=== PATIENT | female | born 1945 | race Caucasian/White ===

== ENCOUNTER 2018-03-19 09:50 | Outpatient (REF) | payer OTHER, SELFPAY ==
[2018-03-19 20:28] LABS: HCT 43.2 % (36.0-46.0); Mean Corp. HGB Concentration 32.4 g/dL (32.0-36.0); Mean Corpuscular Hemoglobin 31.5 pg (27.0-33.0); Mean Corpuscular Volume 97.1 fL (80-95); Mean Platelet Volume 10.7 fL (8.0-11.0); Platelet Count 257 x1000/uL (130-400); RBC 4.45 m/cumm (4.00-5.20); RBC Distribution Width 14.2 % (11.7-14.6); White Blood Cell Count 11.68 k/cumm (4.4-10.8)
[2018-03-19 21:06] LABS: ESR 37 MM/HR (0-30)
[2018-03-19 21:21] LABS: C-Reactive Protein 1.77 mg/dL (0.0-0.3)
== END 2018-03-19 09:51 ==
LOC: NCHCN 09:50
PROVIDERS: PCP Specialist/Technologist Athletic Trainer; Visit Provider Specialist/Technologist Athletic Trainer
DX: R23.8 Other skin changes (principal); M25.50 Pain in unspecified joint; M79.605 Pain in left leg
CPT/HCPCS: 85027; 85652; 86140

== ENCOUNTER 2018-04-02 00:50 | Outpatient (CLI) | payer OTHER, SELFPAY ==
--- NOTE | 2018-04-02 07:56 | DI.REPORT_ITS ---
SYMPTOM/DIAGNOSIS: SCREENING, [facility], Z00.00 MAMMOGRAMS: Mammograms were interpreted according to the usual protocol including computer analysis with CAD system, tomosynthesis and C view imaging. The breast tissue is heterogeneously radiodense with no evidence of a dominant mass. A biopsy clip is identified in the medial portion of the right breast. There are no suspicious calcifications and there has been no significant interval change when compared with previous exams. IMPRESSION: No evidence of malignancy, category 1. Yearly screening mammography is recommended. Breast density, category C. SA ASSESSMENT OF FINDINGS: Negative. Category 1. Patient will receive a letter notifying them of these results. Bi-RADS category C. The breasts are heterogeneously dense, which may obscure small masses.
--- NOTE | 2018-04-02 08:10 | DI.REPORT_ITS ---
SYMPTOM/DIAGNOSIS: M79.605, LT LEG PAIN, WORSE WITH WT BEARING, H/O OSTEOPOROSIS LEFT LEG: No bony or soft tissue abnormality is demonstrated.
== END 2018-04-02 00:51 ==
PROVIDERS: PCP Specialist/Technologist Athletic Trainer; Visit Provider Specialist/Technologist Athletic Trainer
DX: M79.605 Pain in left leg (principal); Z12.31 Encounter for screening mammogram for malignant neoplasm of breast
CPT/HCPCS: 77063; 77067; 73590

== ENCOUNTER 2018-04-03 10:30 | Outpatient (REF) | payer OTHER, SELFPAY ==
[2018-04-05 14:56] LABS: Myeloperoxidase Ab IgG <0.2 U; Proteinase 3 Ab (PR3) <0.2 U
[2018-04-05 22:54] LABS: Anaplasma phagocytophilum Negative (Negative); B. miyamotoi PCR Negative (Negative); Babesia divergens/MO-1 Negative (Negative); Babesia duncani Negative (Negative); Babesia microti Negative (Negative); Ehrlichia chaffeensis Negative (Negative); Ehrlichia ewingii/canis Negative (Negative); Ehrlichia muris eauclairensis Negative (Negative)
[2018-04-07 09:28] LABS: Cyclic Citrullinated Peptide <2.5 U/mL (<5.0)
[2018-04-07 12:53] LABS: Lyme Ab w Rflx to Lyme Confirm Negative
[2018-04-07 14:43] LABS: ANA Interpretation Negative (NEGAT)
[2018-04-08 11:17] LABS: Rheumatoid Factor 11 IU/mL (<12.5)
== END 2018-04-03 10:31 ==
LOC: NCHCN 10:30
PROVIDERS: PCP Specialist/Technologist Athletic Trainer; Visit Provider Specialist/Technologist Athletic Trainer
DX: M25.50 Pain in unspecified joint (principal); R79.82 Elevated C-reactive protein (CRP)
CPT/HCPCS: 86200; 83516; 86038; 86431; 86618; 87798

== ENCOUNTER 2018-11-22 13:16 | Inpatient (IN) | payer OTHER, SELFPAY ==
[2018-11-22] VITALS (94 sets, daily range): BP systolic 88–118; BP diastolic 52–81; PULSE 77–110; RESP 8–34; TEMP 36.3–37; O2SAT 92–99
[2018-11-22] MEDS: methylPREDNISolone SUCC 125 MG VIAL 80 MG IVP ×2 (14:49→22:25)
[2018-11-22 14:50] LABS: Abs Immature Grans 0.08 k/cumm (0.0-0.09); Absolute Basophil Count 0.04 k/cumm (0.0-0.2); Absolute Lymphocyte Count 1.43 k/cumm (1.2-3.4); Absolute Monocyte Count 1.88 k/cumm (0.11-0.7); Absolute Neutrophil Count 16.95 k/cumm (1.2-6.7); Basophils % 0.2; Eosinophils % 0.3; HCT 38.7 % (36.0-46.0); HGB 12.3 g/dL (12.0-15.5); Immature Grans % 0.4; Mean Corp. HGB Concentration 31.8 g/dL (32.0-36.0); Mean Corpuscular Hemoglobin 31.4 pg (27.0-33.0); Mean Corpuscular Volume 98.7 fL (80-95); Mean Platelet Volume 11.3 fL (8.0-11.0); Monocytes % 9.2; Neutrophils % 82.9; Platelet Count 360 x1000/uL (130-400); RBC 3.92 m/cumm (4.00-5.20); RBC Distribution Width 15.2 % (11.7-14.6); White Blood Cell Count 20.45 k/cumm (4.4-10.8)
[2018-11-22 14:51] LABS: Absolute Eosinophil Count 0.06 k/cumm (0.0-0.7)
[2018-11-22] MEDS: Albuterol/Ipratropium 3 ML UPD VIAL UPD ×2 (15:00→22:30)
--- NOTE | 2018-11-22 15:02 | W.ED.GENAD ---
Discharge Plan Disposition Patient Disposition: [facility] INPATIENT Condition: Serious Discharge Details Chief Complaint: SOB Clinical Impression: Pneumonia, COPD with acute exacerbation Primary Care Provider: Jude Nino ED Provider: Tin Marcelino Home Meds and New Rx's Prescriptions: No Action trazodone 50 MG tablet 50 mg PO HS RF: 0 levothyroxine 25 MCG tablet 75 mcg PO DAILY RF: 0 Combivent 200 PUFF aerosol 2 inh Inhalation BID RF: 0 albuterol sulfate [ProAir HFA] 200 PUFF HFA aerosol inhaler 2 inh Inhalation Q4H PRN PRNRF: 0 Symbicort 60 PUFF HFA aerosol inhaler 2 inh Inhalation BID RF: 0 Chantix 0.5 MG tablet 0.5 mg PO BID Qty: 60 RF: 3 multivitamin [Daily Multiple] 1 EACH tablet 1 ea PO DAILY RF: 0 dextromethorphan-guaifenesin [Mucinex DM] 1 EACH tablet extended release 12 hr 1 ea PO DIRECTED PRNRF: 0 cholecalciferol (vitamin D3) 1,000 UNITS tablet 1,000 unit PO DAILY RF: 0 calcium carbonate-vitamin D3 1 EACH capsule 1 ea PO DAILY RF: 0 L.acidoph, paracasei,B. lactis 1 EACH capsule 1 ea PO DAILY RF: 0 prednisone 20 MG tablet 20 mg PO DIRECTED RF: 0 Symbicort 60 PUFF HFA aerosol inhaler 2 puff Inhalation BID RF: 0 docusate calcium 240 mg Capsule 1 mg PO DAILY RF: 0 amlodipine [Norvasc] 5 mg Tablet 5 mg PO DAILY RF: 0 buspirone 10 mg Tablet 10 mg PO BID PRNRF: 0 Probiotic and Acidophilus 300-250 million cell-mg Capsule 1 cap PO DAILY RF: 0 Medical Decision Making 19:00 - Documentation was delayed secondary to ED patient volume and acuity. Lisbeth Taylor is a 73-year-old female with history of COPD, recently discharged about a week ago after prolonged admission to outside hospital in [place] for acute hypoxic and hypercapnic respiratory failure secondary to acute exacerbation requiring intubation, here with shortness of breath over the past 3 to 4 days, worsening, also some intermittent chest discomfort and cough. Patient arrived with mild respiratory distress. Respiratory therapy was consulted for initiation of BiPAP. Duoneb was administered. Patient was given solumedrol 80mg (this is in addition to prescribed prednisone that she has been taking). ECG reviewed and interpreted by me: Sinus tachycardia 107 bpm, short [place] interval of 114, QTc 430, normal axis, nondiagnostic. Chest x-ray was reviewed and interpreted by radiology: Left lower lobe pneumonia was noted. Blood cultures were sent. Lactate noted to be normal. Will initiate antibiotic coverage with cefepime. Labs were reviewed. Patient had significant leukocytosis. Of note she has been on prednisone. Ddimer elevated. BNP slightly elevated with nl trop. CT of the chest was interpreted by radiology: IMPRESSION: 1. Left lower lobe pneumonia. 2. Possible additional small area of right lower lobe pneumonia. 3. Chronic lung disease. Decision to obtain outside hospital records. I was able to obtain records from recent hospitalization at [facility] will send. Patient apparently was treated with 5 days of Rocephin and azithromycin while she was there. Of note she did have significant leukocytosis at that time. I called and spoke with Dr. Coats who will admit the patient to the ICU. HPI General Mode of arrival: ambulatory. Date/Time Provider Initiated Documentation: 11/22/18 13:45. Limitations to Documentation: no limitations. Information obtained by: patient. HPI Narrative: 73-year-old female with history of COPD, recent hospitalization for COPD exacerbation with acute hypoxic and hypercapnic respiratory failure requiring ICU admission and intubation, discharged proximally 1 week ago, here with 3 to 4 days of worsening shortness of breath as well as intermittent chest discomfort and some cough. No fevers. Symptoms are persistent, progressively worse and now severe. She does not have active chest pain at this time. She has been using her medications as prescribed including prednisone. No associated leg swelling. She has had some leg discomfort left greater than right calf. Related Data Home Medications Medication Instructions Recorded Confirmed Combivent 2 inh INHALATION BID 06/26/15 11/22/18 Symbicort 2 inh INHALATION BID 06/26/15 10/21/17 albuterol sulfate [ProAir HFA] 2 inh INHALATION Q4H PRN PRN 06/26/15 11/22/18 levothyroxine 75 mcg PO DAILY 06/26/15 11/22/18 trazodone 50 mg PO HS 06/26/15 11/22/18 Chantix 0.5 mg PO BID #60 tab 06/29/15 11/22/18 L.acidoph, paracasei,B. lactis 1 ea PO DAILY 10/15/17 11/22/18 calcium carbonate-vitamin D3 1 ea PO DAILY 10/15/17 11/22/18 cholecalciferol (vitamin D3) 1,000 unit PO DAILY 10/15/17 11/22/18 dextromethorphan-guaifenesin 1 ea PO DIRECTED PRN 10/15/17 11/22/18 [Mucinex Dm ER 1,200-60 mg Tab] multivitamin [Daily Multiple 1 ea PO DAILY 10/15/17 11/22/18 Vitamin] prednisone 20 mg PO DIRECTED 10/15/17 11/22/18 budesonide-formoterol [Symbicort 2 puff INHALATION BID 10/21/17 11/22/18 160/4.5 Mcg Inhaler] Lactobac comb [id number] 1 cap PO DAILY 11/22/18 11/22/18 [Probiotic and Acidophilus] amlodipine [Norvasc] 5 mg PO DAILY 11/22/18 11/22/18 buspirone 10 mg PO BID PRN 11/22/18 11/22/18 docusate calcium 1 mg PO DAILY 11/22/18 11/22/18 Previous Rx's Medication Instructions Recorded Chantix 0.5 mg PO BID #60 tab 06/29/15 Allergies Allergy/AdvReac Type Severity Reaction Status Date / Time No Known Allergies Allergy Unverified 11/22/18 13:57 General Stated Complaint: SOB OLIVIER: 2 Review of Systems Review of Systems All systems reviewed & are unremarkable except as noted in HPI and below Constitutional Reports fatigue and Denies fever(s) Cardiovascular Reports chest pain and Reports dyspnea Respiratory Reports cough and Reports dyspnea Endocrine Reports fatigue [facility] Medical History COPD (chronic obstructive pulmonary disease) Diverticulosis History of tobacco abuse Hypothyroid Osteopenia Surgical History Colonoscopy - MAC (06/22/16) Social History Smoking/Tobacco Use Status: Former Tobacco Use Drug use: Never Exam Const General: cooperative and well developed Nutritional Appearance: average body habitus Orientation: alert and awake HENMT Head: normocephalic Mouth: moist mucous membranes Eyes Conjunctivae: normal conjunctivae Sclera: normal sclerae Neck Neck: trachea midline, supple and no JVD Resp Effort & Inspection: labored, respiratory distress (mild) and tachypneic Auscultation: diminished lung sounds, no rales, no rhonchi and wheezes Cardio Jugular venous pressure: no JVD Rate: tachycardic Rhythm: regular rhythm GI Palpation: soft, not firm, no guarding, no masses, not rigid and nontender Skin General skin exam: no rashes or lesions noted Neuro General: alert, awake, oriented x3 and tone normal Extrem General: no edema Psych Appearance: grossly normal Mental Status: mental status grossly normal Speech and Movement: speech and movement normal Course Vital Signs Respiratory Rate 23 11/22/18 13:14 Pulse Oximetry 96 11/22/18 13:14 Temperature 37 C 11/22/18 13:50 Temperature Source Skin 11/22/18 13:50 Pulse 101 H 11/22/18 14:30 Pulse 98 H 11/22/18 14:40 Respiratory Rate 15 11/22/18 14:40 Respiratory Effort 11/22/18 13:50 Blood Pressure 101/65 11/22/18 14:30 Blood Pressure Mean 74 11/22/18 14:30 Blood Pressure Position Sitting 11/22/18 13:50 Pulse Oximetry 95 11/22/18 14:40 Oxygen Delivery Method Room Air 11/22/18 13:50 Oxygen Flow Rate 0 11/22/18 13:50 Pain Level 7 11/22/18 13:50 Critical Care Time Critical Care Time: Yes Total Critical Care Time: 50 Attestation: I spent greater than 50 minutes addressing this patient's immediate life threats
[2018-11-22 15:06] LABS: ALT 55 U/L (12-78); AST 27 U/L (15-37); Albumin 2.5 g/dL (3.4-5.0); Alkaline Phosphatase 91 U/L (46-116); Anion Gap 8.7 mmol/L (3-11); BUN 25 mg/dL (7-18); Bilirubin, Total 0.4 mg/dL (0.2-1.0); CO2 28.3 mmol/L (21.0-32.0); CREATININE 1.02 mg/dL (0.55-1.02); Chloride 101 mmol/L (98-107); Estimated GFR 53.42 (mL/min/1.73m2); Glucose 107 mg/dL (70-100); Magnesium 1.8 mg/dL (1.8-2.4); NT-proBNP 504 pg/mL; Potassium 4.6 mmol/L (3.5-5.1); Sodium 138 mmol/L (136-145); Total Protein 7.2 g/dL (6.4-8.2)
--- NOTE | 2018-11-22 15:40 | DI.RAD_ITS ---
SYMPTOM/DIAGNOSIS: SHORTNESS OF BREATH PA AND LATERAL CHEST: Comparison is made with 26 June 2015. The heart size is normal. There are patchy densities at both lung bases, left greater than right consistent with pneumonia. No effusions are seen. There is an old right lateral rib fracture. IMPRESSION: Bibasilar infiltrates, left greater than right.
[2018-11-22 16:00] LABS: Diff Comment Diff Reviewed
[2018-11-22 16:01] LABS: Hypochromasia 2+; Stomatocytes 3+
[2018-11-22 16:03] LABS: D-Dimer 1946 ng/mlFEU (<500)
[2018-11-22 16:09] LABS: Troponin I < 0.02 ng/mL (0.00-0.06)
--- NOTE | 2018-11-22 17:04 | DI.VRAD_ITS ---
EXAM: XR Chest, 2 Views EXAM DATE/TIME: 11/22/2018 3:04 PM CLINICAL HISTORY: 73 years old, female; Signs and symptoms; Patient HX: Cough xweeks, HX of copd. TECHNIQUE: Imaging protocol: XR of the chest, 2 views. COMPARISON: CR PORTABLE CHEST ONE VIEW 06/26/2015 12:51 PM FINDINGS: New left lower lobe consolidation consistent with pneumonia. Old right-sided rib fracture unchanged. Pulmonary vasculature within normal limits. IMPRESSION: Left lower lobe pneumonia. Dictated and Authenticated by: Rocky Schuler MD. Ordering:JENA Castle MD
[2018-11-22] MEDS: Ibuprofen 600 MG TAB PO (17:15)
[2018-11-22] MEDS: CEFEPIME 2 GM in Normal Saline 100 ML IVPB (17:49)
[2018-11-22 17:57] LABS: Lactate-non-spesis 0.9 mmol/l (0.6-1.4)
--- NOTE | 2018-11-22 18:22 | DI.CT_ITS ---
SYMPTOM/DIAGNOSIS: SHORTNESS OF BREATH, CHEST PAIN CHEST CT: CT angiography was performed with multi slice acquisition and multi planar and 3D reconstruction. The pulmonary arteries and the aorta are well opacified with IV contrast and there is no evidence of pulmonary emboli or aortic dissection. There is a dense infiltrate in the left lower lobe. Additional milder infiltrates are seen in the right lower lobe consistent with pneumonia. No effusions are identified. IMPRESSION: Bilateral lower lobe infiltrates, left greater than right. No evidence of pulmonary emboli.
[2018-11-22] MEDS: Omnipaque 350 MG/ML 100 ML BTL IJ (18:23)
[2018-11-22] MEDS: Normal Saline Flush 10 ML SYR IVP (18:25)
--- NOTE | 2018-11-22 18:45 | DI.VRAD_ITS ---
EXAM: CT Chest With Contrast EXAM DATE/TIME: 11/22/2018 4:23 PM CLINICAL HISTORY: 73 years old, female; Signs and symptoms; Shortness of breath; Patient HX: Increasing SOB, chest pain, elevated d-dimer. TECHNIQUE: Imaging protocol: Axial computed tomography images of the chest with intravenous contrast. Coronal and sagittal reformatted images were created and reviewed. 3D rendering: MIP reconstructed images were created and reviewed. Radiation optimization: All CT scans at this facility use at least one of these dose optimization techniques: automated exposure control; mA and/or kV adjustment per patient size (includes targeted exams where dose is matched to clinical indication); or iterative reconstruction. Contrast material: OMNIPAQUE 350; Contrast volume: 52 ml; Contrast route: IV; COMPARISON: CT CHEST WITH CONTRAST 06/27/2015 3:44 PM FINDINGS: Lungs: Chronic lung disease with hyperaeration interstitial scarring and mild emphysematous change. Airspace consolidation in the left lower lobe with air bronchograms consistent with pneumonia. Additional mild air space disease in the right lower lobe which may represent a much smaller area of pneumonia or pneumonitis. Pleural space: No significant pleural effusion. Heart: Normal. No cardiomegaly. No pericardial effusion. Pulmonary arteries: No evidence of pulmonary embolism. Aorta: Thoracic aorta unremarkable. Lymph nodes: No hilar or mediastinal adenopathy. Bones/joints: Unremarkable. No acute fracture. Soft tissues: Unremarkable. IMPRESSION: 1. Left lower lobe pneumonia. 2. Possible additional small area of right lower lobe pneumonia. 3. Chronic lung disease. Dictated and Authenticated by: Rocky Schuler MD. Ordering:JENA Castle MD
--- NOTE | 2018-11-22 19:04 | ED.GENADUL_ITS ---
Discharge Plan Disposition Patient Disposition: [facility] INPATIENT Condition: Serious Discharge Details Chief Complaint: SOB Clinical Impression: Pneumonia, COPD with acute exacerbation Primary Care Provider: Jude Nino ED Provider: Tin Marcelino Home Meds and New Rx's Prescriptions: No Action trazodone 50 MG tablet 50 mg PO HS RF: 0 levothyroxine 25 MCG tablet 75 mcg PO DAILY RF: 0 Combivent 200 PUFF aerosol 2 inh Inhalation BID RF: 0 albuterol sulfate [ProAir HFA] 200 PUFF HFA aerosol inhaler 2 inh Inhalation Q4H PRN PRNRF: 0 Symbicort 60 PUFF HFA aerosol inhaler 2 inh Inhalation BID RF: 0 Chantix 0.5 MG tablet 0.5 mg PO BID Qty: 60 RF: 3 multivitamin [Daily Multiple] 1 EACH tablet 1 ea PO DAILY RF: 0 dextromethorphan-guaifenesin [Mucinex DM] 1 EACH tablet extended release 12 hr 1 ea PO DIRECTED PRNRF: 0 cholecalciferol (vitamin D3) 1,000 UNITS tablet 1,000 unit PO DAILY RF: 0 calcium carbonate-vitamin D3 1 EACH capsule 1 ea PO DAILY RF: 0 L.acidoph, paracasei,B. lactis 1 EACH capsule 1 ea PO DAILY RF: 0 prednisone 20 MG tablet 20 mg PO DIRECTED RF: 0 Symbicort 60 PUFF HFA aerosol inhaler 2 puff Inhalation BID RF: 0 docusate calcium 240 mg Capsule 1 mg PO DAILY RF: 0 amlodipine [Norvasc] 5 mg Tablet 5 mg PO DAILY RF: 0 buspirone 10 mg Tablet 10 mg PO BID PRNRF: 0 Probiotic and Acidophilus 300-250 million cell-mg Capsule 1 cap PO DAILY RF: 0 Medical Decision Making 19:00 - Documentation was delayed secondary to ED patient volume and acuity. Lisbeth Taylor is a 73-year-old female with history of COPD, recently discharged about a week ago after prolonged admission to outside hospital in [place] for acute hypoxic and hypercapnic respiratory failure secondary to acute ex acerbation requiring intubation, here with shortness of breath over the past 3 to 4 days, worsening, also some intermittent chest discomfort and cough. Patient arrived with mild respiratory distress. Respiratory therapy was consulted for initiation of BiPAP. Duoneb was administered. Patient was given solumedrol 80mg (this is in addition to prescribed prednisone that she has been taking). ECG reviewed and interpreted by me: Sinus tachycardia 107 bpm, short [place] interval of 114, QTc 430, normal axis, nondiagnostic. Chest x-ray was reviewed and interpreted by radiology: Left lower lobe pneumonia was noted. Blood cultures were sent. Lactate noted to be normal. Will initiate antibiotic coverage with cefepime. Labs were reviewed. Patient had significant leukocytosis. Of note she has been on prednisone. Ddimer elevated. BNP slightly elevated with nl trop. CT of the chest was interpreted by radiology: IMPRESSION: 1. Left lower lobe pneumonia. 2. Possible additional small area of right lower lobe pneumonia. 3. Chronic lung disease. Decision to obtain outside hospital records. I was able to obtain records from recent hospitalization at [facility] send. Patient apparently was treated with 5 days of Rocephin and azithromycin while she was there. Of note she did have significant leukocytosis at that time. I called and spoke with Dr. Coats who will admit the patient to the ICU. HPI General Mode of arrival: ambulatory . Date/Time Provider Initiated Documentation: 11/22/18 13:45 . Limitations to Documentation: no limitations . Information obtained by: patient . HPI Narrative: 73-year-old female with history of COPD, recent hospitalization for COPD exacerbation with acute hypoxic and hypercapnic respiratory failure requiring ICU admission and intubation, discharged proximally 1 week ago, here with 3 to 4 days of worsening shortness of breath as well as intermittent chest discomfort and some cough. No fevers. Symptoms are persistent, progressively worse and now severe. She does not have active chest pain at this time. She has been using her medications as prescribed including prednisone. No associated leg swelling. She has had some leg discomfort left greater than right calf. Related Data Home Medications Medication Instructions Recorded Confirmed Combivent 2 inh INHALATION BID 06/26/15 11/22/18 Symbicort 2 inh INHALATION BID 06/26/15 10/21/17 albuterol sulfate [ProAir HFA] 2 inh INHALATION Q4H PRN PRN 06/26/15 11/22/18 levothyroxine 75 mcg PO DAILY 06/26/15 11/22/18 trazodone 50 mg PO HS 06/26/15 11/22/18 Chantix 0.5 mg PO BID #60 tab 06/29/15 11/22/18 L.acidoph, paracasei,B. lactis 1 ea PO DAILY 10/15/17 11/22/18 calcium carbonate-vitamin D3 1 ea PO DAILY 10/15/17 11/22/18 cholecalciferol (vitamin D3) 1,000 unit PO DAILY 10/15/17 11/22/18 dextromethorphan-guaifenesin 1 ea PO DIRECTED PRN 10/15/17 11/22/18 [Mucinex Dm ER 1,200-60 mg Tab] multivitamin [Daily Multiple 1 ea PO DAILY 10/15/17 11/22/18 Vitamin] prednisone 20 mg PO DIRECTED 10/15/17 11/22/18 budesonide-formoterol [Symbicort 2 puff INHALATION BID 10/21/17 11/22/18 160/4.5 Mcg Inhaler] Lactobac comb [id number] 1 cap PO DAILY 11/22/18 11/22/18 [Probiotic and Acidophilus] amlodipine [Norvasc] 5 mg PO DAILY 11/22/18 11/22/18 buspirone 10 mg PO BID PRN 11/22/18 11/22/18 docusate calcium 1 mg PO DAILY 11/22/18 11/22/18 Previous Rx's Medication Instructions Recorded Chantix 0.5 mg PO BID #60 tab 06/29/15 Allergies Allergy/AdvReac Type Severity Reaction Status Date / Time No Known Allergies Allergy Unverified 11/22/18 13:57 General Stated Complaint: SOB OLIVIER: 2 Review of Systems Review of Systems All systems reviewed & are unremarkable except as noted in HPI and below Constitutional Reports fatigue and Denies fever(s) Cardiovascular Reports chest pain and Reports dyspnea Respiratory Reports cough and Reports dyspnea Endocrine Reports fatigue [facility] Medical History COPD (chronic obstructive pulmonary disease) Diverticulosis History of tobacco abuse Hypothyroid Osteopenia Surgical History Colonoscopy - MAC (06/22/16) Social History Smoking/Tobacco Use Status: Former Tobacco Use Drug use: Never Exam Const General: cooperative and well developed Nutritional Appearance: average body habitus Orientation: alert and awake HENMT Head: normocephalic Mouth: moist mucous membranes Eyes Conjunctivae: normal conjunctivae Sclera: normal sclerae Neck Neck: trachea midline, supple and no JVD Resp Effort & Inspection: labored, respiratory distress (mild) and tachypneic Auscultation: diminished lung sounds, no rales, no rhonchi and wheezes Cardio Jugular venous pressure: no JVD Rate: tachycardic Rhythm: regular rhythm GI Palpation: soft, not firm, no guarding, no masses, not rigid and nontender Skin General skin exam: no rashes or lesions noted Neuro General: alert, awake, oriented x3 and tone normal Extrem General: no edema Psych Appearance: grossly normal Mental Status: mental status grossly normal Speech and Movement: speech and movement normal Course Vital Signs Respiratory Rate 23 11/22/18 13:14 Pulse Oximetry 96 11/22/18 13:14 Temperature 37 C 11/22/18 13:50 Temperature Source Skin 11/22/18 13:50 Pulse 101 H 11/22/18 14:30 Pulse 98 H 11/22/18 14:40 Respiratory Rate 15 11/22/18 14:40 Respiratory Effort 11/22/18 13:50 Blood Pressure 101/65 11/22/18 14:30 Blood Pressure Mean 74 11/22/18 14:30 Blood Pressure Position Sitting 11/22/18 13:50 Pulse Oximetry 95 11/22/18 14:40 Oxygen Delivery Method Room Air 11/22/18 13:50 Oxygen Flow Rate 0 11/22/18 13:50 Pain Level 7 11/22/18 13:50 Critical Care Time Critical Care Time: Yes Total Critical Care Time: 50 Attestation: I spent greater than 50 minutes addressing this patient's immediate life threats
--- NOTE | 2018-11-22 19:22 | HPE_ITS ---
Date of service: 11/22/18 Time of Service: 19:19 Assessment and Plan (1) Pneumonia: Start date: 11/22/18 Current visit: Yes Status: Acute This is a 73-year-old lady who recently was hospitalized at the end of October and into early November for COPD exacerbation with hypercapnia and intubation during that hospital stay. She had not fully recovered but felt better and had exacerbation just prior to this admission with CT scan revealing persistent left lower lobe pneumonia with possible right lower lobe infiltrate. She also has mild COPD exacerbation. She is currently to. We will treat her aggressively with IV cefepime and Levaquin as well as IV hydration with patient having slightly low systolic blood pressures and no history of CHF. At present she is comfortable without positive pressure treatment with no hypoxemia on room air. She is a DNR/DNI, this will be respected. Qualifiers: Laterality: bilateral Lung location: lower lobe of lung (2) COPD exacerbation: Start date: 11/22/18 Current visit: Yes Status: Acute Patient will be treated with IV Solu-Medrol having been on prednisone after last hospitalization and not completely weaned. She has had leukocytosis which is probably exacerbated by steroid treatment and did have probable hypoglycemia during her last hospital stay which will be observed with daily lab for now. She will receive nebulizer treatments as well long-term she is on inhalers at home. She is an ex-smoker having quit about 4 years ago. History of Present Illness Chief Complaint: Increasing shortness of breath Narrative: This is a 73-year-o ld lady who recently had a long road trip by car with her starting from the home in [place] and circling from [place] for [facility] and then to [place], [place] and up through [place] where she became ill and was hospitalized from October 29 - November 15 with exacerbation of her lung problem with COPD requiring intubation during her hospital stay though she is a DNR/DNI statu s. After being released she returned home with her via car because he did have a cough and some respiratory symptoms. She became more severely short the evening prior to presentation to the ED. In the ED she was evaluated for COPD exacerbation and CT scan did reveal left lower lobe pneumonia with possible small area of the right lower lobe also having an infiltrate. She also had chronic lung disease on CT. There is no PE. Her d-dimer was positive. She did require nasal BiPAP for short period during the emergency room care because of hypoxemia and she chronically does have some tachypnea at rest with her previous smoking history quitting 4 years ago and on chronic inhalers. At the time I saw the patient she was not hypoxic on room air but still tachypneic. She was not complaining of shortness of breath or chest pain. Pertinent review of systems was negative for any significant weight change, she had no GI or complaints and no focal neurological complaints. She does have a chronic recurring rash over her left buttock which she thinks may be zoster and she did receive the first zoster shot several years ago and plans to receive the new one. She has had no fever or constitutional symptoms. She was admitted for IV antibiotic therapy for her persistent pneumonia status post recent hospitalization. Review of Systems Review of Systems 13 point review of systems otherwise unrevealing or as per HPI and stable. [facility]LY [facility] Medical History COPD (chronic obstructive pulmonary disease) Diverticulosis History of tobacco abuse Hypothyroid Osteopenia Surgical History Colonoscopy - MAC (06/22/16) Social History Smoking/Tobacco Use Status: Former Tobacco Use Drug use: Never Meds Home Medications Medication Instructions Recorded Confirmed Type Combivent 2 inh INHALATION BID 06/26/15 11/22/18 History Symbicort 2 inh INHALATION BID 06/26/15 10/21/17 History albuterol sulfate [ProAir HFA] 2 inh INHALATION Q4H PRN PRN 06/26/15 11/22/18 History levothyroxine 75 mcg PO DAILY 06/26/15 11/22/18 History trazodone 50 mg PO HS 06/26/15 11/22/18 History Chantix 0.5 mg PO BID #60 tab 06/29/15 11/22/18 Rx L.acidoph, paracasei,B. lactis 1 ea PO DAILY 10/15/17 11/22/18 History calcium carbonate-vitamin D3 1 ea PO DAILY 10/15/17 11/22/18 History cholecalciferol (vitamin D3) 1,000 unit PO DAILY 10/15/17 11/22/18 History dextromethorphan-guaifenesin 1 ea PO DIRECTED PRN 10/15/17 11/22/18 History [Mucinex Dm ER 1,200-60 mg Tab] multivitamin [Daily Multiple 1 ea PO DAILY 10/15/17 11/22/18 History Vitamin] prednisone 20 mg PO DIRECTED 10/15/17 11/22/18 History budesonide-formoterol [Symbicort 2 puff INHALATION BID 10/21/17 11/22/18 History 160/4.5 Mcg Inhaler] Lactobac comb 1-HEA-dlbfnhdpxy 1 cap PO DAILY 11/22/18 11/22/18 History [Probiotic and Acidophilus] amlodipine [Norvasc] 5 mg PO DAILY 11/22/18 11/22/18 History buspirone 10 mg PO BID PRN 11/22/18 11/22/18 History docusate calcium 1 mg PO DAILY 11/22/18 11/22/18 History Allergies Allergy/AdvReac Type Severity Reaction Status Date / Time No Known Allergies Allergy Unverified 11/22/18 13:57 Exam Narrative Exam Narrative: General: Patient is slightly tachypneic but in no acute distress, alert and oriented x3, very thin but not cachectic well-developed. She was comfortable caring on a conversation without pursed lip breathing. HEENT: Normocephalic with eyes revealing pupils equal and reactive to light symmetrically status post cataract surgery with lens implants, extraocular movement intact and sclera anicteric. Ears normal. Oropharynx with slightly dry oral mucosa and edentulous. Neck: Supple without JVD. Lungs: Bronchovesicular breath sounds diffusely with expiratory fine rales over the left lower lung snow of the back and decreased aeration over the right lower lung field of the back. Prolonged expiratory phase but no respiratory wheeze and no rhonchi. Fair to poor aeration diffusely. Heart: Rate and rhythm with no murmurs gallops appreciated. Breast: Not examined. Abdomen: Scaphoid, soft and nontender to palpation with no palpable hepatosplenomegaly. Genitalia rectal exam: Not examined. Extremities: Without pitting edema, cyanosis or clubbing. Muscle atrophy diffusely with all joints and fair range of motion. Skin: Sweaty, pale and warm. Dried vesicular clustered rash over her left buttocks which he states is recurrent. Lymphatics: No generalized lymphadenopathy. Neuro: Cranial nerves II through XII grossly intact, no focalizing motor deficits. Results Imaging Imaging Studies: EXAM: CT Chest With Contrast EXAM DATE/TIME: 11/22/2018 4:23 PM CLINICAL HISTORY: 73 years old, female; Signs and symptoms; Shortness of breath; Patient HX: Increasing SOB, chest pain, elevated d-dimer. TECHNIQUE: Imaging protocol: Axial computed tomography images of the chest with intravenous contrast. Coronal and sagittal reformatted images were created and reviewed. 3D rendering: MIP reconstructed images were created and reviewed. Radiation optimization: All CT scans at this facility use at least one of these dose optimization techniques: automated exposure control; mA and/or kV adjustment per patient size (includes targeted exams where dose is matched to clinical indication); or iterative reconstruction. Contrast material: OMNIPAQUE 350; Contrast volume: 52 ml; Contrast route: IV; COMPARISON: CT CHEST WITH CONTRAST 06/27/2015 3:44 PM FINDINGS: Lungs: Chronic lung disease with hyperaeration interstitial scarring and mild emphysematous change. Airspace consolidation in the left lower lobe with air bronchograms consistent with pneumonia. Additional mild air space disease in the right lower lobe which may represent a much smaller area of pneumonia or pneumonitis. Pleural space: No significant pleural effusion. Heart: Normal. No cardiomegaly. No pericardial effusion. Pulmonary arteries: No evidence of pulmonary embolism. Aorta: Thoracic aorta unremarkable. Lymph nodes: No hilar or mediastinal adenopathy. Bones/joints: Unremarkable. No acute fracture. Soft tissues: Unremarkable. IMPRESSION: 1. Left lower lobe pneumonia. 2. Possible additional small area of right lower lobe pneumonia. 3. Chronic lung disease. Dictated and Authenticated by: Rocky Schuler MD. Labs : 11/22/18 14:35 11/22/18 14:35 Laboratory Results - last 24 hr 11/22/18 11/22/18 11/22/18 14:35 14:35 14:35 WBC 20.45 H RBC 3.92 L Hgb 12.3 Hct 38.7 MCV 98.7 H MCH 31.4 MCHC 31.8 L RDW 15.2 H Plt Count 360 MPV 11.3 H Immature Gran % 0.4 Neutrophils % 82.9 Lymphocytes % 7.0 Monocytes % 9.2 Eosinophils % 0.3 Basophils % 0.2 Absolute Neutrophils 16.95 H Absolute Lymphocytes 1.43 Absolute Monocytes 1.88 H Absolute Eosinophils 0.06 Absolute Basophils 0.04 Differential Comment Diff reviewed RBC Morphology See below Hypochromasia 2+ Stomatocytes 3+ D-Dimer 1946 H Sodium 138 Potassium 4.6 Chloride 101 Carbon Dioxide 28.3 Anion Gap 8.7 BUN 25 H Creatinine 1.02 Estimated GFR/1.73 m2 53.42 Glucose 107 H Lactate Calcium 10.0 Magnesium 1.8 Total Bilirubin 0.4 AST 27 ALT 55 Alkaline Phosphatase 91 Troponin I < 0.02 NT-Pro-B Natriuret Pep 504 H Total Protein 7.2 Albumin 2.5 L 11/22/18 17:31 WBC RBC Hgb Hct MCV MCH MCHC RDW Plt Count MPV Immature Gran % Neutrophils % Lymphocytes % Monocytes % Eosinophils % Basophils % Absolute Neutrophils Absolute Lymphocytes Absolute Monocytes Absolute Eosinophils Absolute Basophils Differential Comment RBC Morphology Hypochromasia Stomatocytes D-Dimer Sodium Potassium Chloride Carbon Dioxide Anion Gap BUN Creatinine Estimated GFR/1.73 m2 Glucose Lactate 0.9 Calcium Magnesium Total Bilirubin AST ALT Alkaline Phosphatase Troponin I NT-Pro-B Natriuret Pep Total Protein Albumin Last Vital Signs Temp 37 C 11/22/18 13:50 Pulse 92 H 11/22/18 18:46 Resp 19 11/22/18 19:04 BP 101/60 11/22/18 18:46 Pulse Ox 96 11/22/18 18:50
[2018-11-22 19:55] LABS: Troponin I < 0.02 ng/mL (0.00-0.06)
[2018-11-22 20:01] LABS: TSH 0.79 uIU/mL (0.358-3.74)
[2018-11-22] MEDS: Normal Saline 1,000 ML 100 ML IV (21:07)
[2018-11-22] MEDS: traZODone 50 MG TAB PO (22:24)
[2018-11-22] MEDS: Heparin 5,000 UNITS/ML VIAL 5000 UNITS SC (22:30)
[2018-11-22 23:23] LABS: Troponin I < 0.02 ng/mL (0.00-0.06)
[2018-11-23] VITALS (58 sets, daily range): BP systolic 93–129; BP diastolic 45–80; PULSE 66–116; RESP 1–34; TEMP 35.9–36.5; O2SAT 92–99
[2018-11-23] MEDS: Albuterol/Ipratropium 3 ML UPD VIAL UPD ×4 (02:25→21:37)
[2018-11-23] MEDS: levoFLOXacin 750 MG/150 ML BAG 100 MG IVPB (02:30)
[2018-11-23] MEDS: CEFEPIME 2 GM in Normal Saline 100 ML IVPB ×2 (05:30→21:20)
[2018-11-23] MEDS: methylPREDNISolone SUCC 125 MG VIAL 80 MG IVP ×3 (05:51→21:34)
[2018-11-23] MEDS: Heparin 5,000 UNITS/ML VIAL 5000 UNITS SC (05:54)
[2018-11-23 06:20] LABS: HCT 29.1 % (36.0-46.0); HGB 9.2 g/dL (12.0-15.5); Mean Corp. HGB Concentration 31.6 g/dL (32.0-36.0); Mean Platelet Volume 10.3 fL (8.0-11.0); Platelet Count 356 x1000/uL (130-400); RBC 2.97 m/cumm (4.00-5.20); RBC Distribution Width 14.9 % (11.7-14.6); White Blood Cell Count 16.58 k/cumm (4.4-10.8)
[2018-11-23] MEDS: Normal Saline 1,000 ML 150 ML IV (06:20)
[2018-11-23 06:39] LABS: ALT 37 U/L (12-78); AST 12 U/L (15-37); Albumin 1.7 g/dL (3.4-5.0); Alkaline Phosphatase 70 U/L (46-116); BUN 28 mg/dL (7-18); Bilirubin, Total 0.3 mg/dL (0.2-1.0); CREATININE 0.86 mg/dL (0.55-1.02); Calcium 8.6 mg/dL (8.5-10.1); Chloride 106 mmol/L (98-107); Glucose 128 mg/dL (70-100); Potassium 4.3 mmol/L (3.5-5.1); Sodium 139 mmol/L (136-145); Total Protein 5.6 g/dL (6.4-8.2)
[2018-11-23] MEDS: Acetaminophen 500 MG TAB 1000 MG PO (09:01)
[2018-11-23] MEDS: amLODIPine 5 MG TAB PO (09:01)
[2018-11-23 09:52] LABS: BE -2.3 mmol/L (-3-3); HCO3 22 mmol/L (22-28); pCO2 31 mmHg (34-47); pH 7.45 (7.35-7.45); pO2 61 mmHg (83-108); sO2 93 % (94-98); tCO2 21 mmol/L (22-29)
[2018-11-23 09:53] LABS: FIO2L R/A L; Site Left Radial
--- NOTE | 2018-11-23 11:28 | W.PM.PROGNOT ---
Date of Service Date of service: 11/23/18 Time of Service: 11:28 Assessment and Plan (1) HCAP (healthcare-associated pneumonia): Current visit: Yes Status: Acute Present on admission, in fact, possibly even VAP. Already clinically better. Records from [facility] reviewed - the patient did not grow any pathogens in her sputum culture there, but given her recent week-long intubation, I feel MRSA coverage is a good idea. Cefepime and levofloxacin are being renally dosed. We are awaiting blood cultures and repeating sputum culture. Likely ok to transfer out of ICU later in the day. (2) COPD exacerbation: Current visit: Yes Status: Acute Improving. Off BiPAP. Vancomycin added today. Continue cefepime/levofloxacin (Day 2). symbicort reintroduced. Continue scheduled and prn nebs, antitussives, steroids (on PPI ppx). (3) Hypoxia: Current visit: Yes Status: Resolved Not requiring O2 at rest. Will mobilize and assess O2 requirements (4) Adrenal insufficiency: Current visit: Yes Status: Acute While it is possible that the patient's hypotension on presentation had to do with her impending shock/sepsis, she was also on a lengthy course of steroids as outpatient and did get acutely ill, so acute adrenal insufficiency is also very possible. The patient will need a protracted steroid taper on discharge. (5) Macrocytic anemia: Current visit: Yes Status: Acute Acute on chronic and likely also dilutional. Checking hematest, anemia studies. No evidence of active bleeding. (6) Discharge planning issues: Current visit: Yes Status: Acute DNR/DNI (7) DVT prophylaxis: Current visit: Yes Status: Acute Heparin changed to lovenox - however, low threshold to d/c if anemia worsens Subjective Interval history since last seen: The patient states she is feeling a lot better this morning than she did yesterday. She denies dizziness, chest pain, nausea, vomiting. She complains of nonproductive cough. Her breathing is much better, but not back to baseline - she does not usually pause to breathe after every 3-4 words, like she has been doing today. She has been off BiPAP in the ICU and is now on room air. She states she has an appointment next Saturday with Dr Castro in [place]. Exam Narrative Exam Narrative: General: Very pleasant frail female, laying comfortably in bed, A&Ox3, pausing to breathe every 3-4 words HEENT: EOMI, MMM Heart: RRR, no m/r/g Lungs: diminished areation but clear to auscultation B GI: abdomen is soft, nontender, nondistended Extremities: no e/c/c BLE's, 2+ pedal pulses B Objective Objective Clinical Data: Abnormal lab results 11/22/18 11/22/18 11/22/18 Range/Units 14:35 14:35 14:35 WBC 20.45 H (4.4-10.8) k/cumm RBC 3.92 L (4.00-5.20) m/cumm Hgb (12.0-15.5) g/dL Hct (36.0-46.0) % MCV 98.7 H (80-95) fL MCHC 31.8 L (32.0-36.0) g/dL RDW 15.2 H (11.7-14.6) % MPV 11.3 H (8.0-11.0) fL Absolute Neutrophils 16.95 H (1.2-6.7) k/cumm Absolute Monocytes 1.88 H (0.11-0.7) k/cumm D-Dimer 1946 H (<500) ng/mlFEU pCO2 (34-47) mmHg pO2 (83-108) mmHg O2 Saturation (94-98) % ABG Total CO2 (22-29) mmol/L BUN 25 H (7-18) mg/dL Glucose 107 H (70-100) mg/dL AST (15-37) U/L NT-Pro-B Natriuret Pep 504 H ( - 299) pg/mL Total Protein (6.4-8.2) g/dL Albumin 2.5 L (3.4-5.0) g/dL 11/23/18 11/23/18 11/23/18 Range/Units 06:00 06:00 09:30 WBC 16.58 H (4.4-10.8) k/cumm RBC 2.97 L (4.00-5.20) m/cumm Hgb 9.2 L D (12.0-15.5) g/dL Hct 29.1 L D (36.0-46.0) % MCV 98.0 H (80-95) fL MCHC 31.6 L (32.0-36.0) g/dL RDW 14.9 H (11.7-14.6) % MPV (8.0-11.0) fL Absolute Neutrophils (1.2-6.7) k/cumm Absolute Monocytes (0.11-0.7) k/cumm D-Dimer (<500) ng/mlFEU pCO2 31 L (34-47) mmHg pO2 61 L (83-108) mmHg O2 Saturation 93 L (94-98) % ABG Total CO2 21 L (22-29) mmol/L BUN 28 H (7-18) mg/dL Glucose 128 H (70-100) mg/dL AST 12 L (15-37) U/L NT-Pro-B Natriuret Pep ( - 299) pg/mL Total Protein 5.6 L (6.4-8.2) g/dL Albumin 1.7 L (3.4-5.0) g/dL Vital Signs Temperature 36.1 C L 11/23/18 07:30 Temperature Source Temporal Artery Scan 11/23/18 07:30 Pulse 96 H 11/23/18 09:01 Pulse 100 H 11/23/18 09:01 Respiratory Rate 18 11/23/18 09:01 Respiratory Effort 11/23/18 07:30 Respiratory Depth Shallow 11/23/18 07:30 Respiratory Pattern Normal 11/23/18 07:30 Blood Pressure 102/59 L 11/23/18 09:01 Blood Pressure Mean 70 11/23/18 09:01 Blood Pressure Position Supine 11/23/18 07:30 Pulse Oximetry 93 L 11/23/18 09:01 Oxygen Delivery Method Room Air 11/23/18 07:30 Oxygen Flow Rate 0 11/23/18 07:30 Pain Level 6 11/23/18 09:01 Intake & Output 11/22/18 11/22/18 11/23/18 11:59 23:59 11:59 Intake Total 100 / 100 2210.000 / 2210.000 Output Total 150 / 150 400 / 400 Balance -50 / -50 1810.000 / 1810.000 Weight 41.7 kg 41.7 kg Intake: IV 100 / 100 1845.000 / 1845.000 Oral 365 / 365 Output: Urine 150 / 150 400 / 400 Other: Urine Color Yellow Yellow Urine Appearance Clear Clear Urine Odor Normal Comment Voids to bedside commode. Stool Occult Blood Negative Stool Size Small Stool Characteristics Soft Formed Voiding Methods Bedside Commode Bedside Commode Laboratory Results WBC 16.58 k/cumm (4.4-10.8) H 11/23/18 06:00 RBC 2.97 m/cumm (4.00-5.20) L 11/23/18 06:00 Hgb 9.2 g/dL (12.0-15.5) L D 11/23/18 06:00 Hct 29.1 % (36.0-46.0) L D 11/23/18 06:00 MCV 98.0 fL (80-95) H 11/23/18 06:00 MCH 31.0 pg (27.0-33.0) 11/23/18 06:00 MCHC 31.6 g/dL (32.0-36.0) L 11/23/18 06:00 RDW 14.9 % (11.7-14.6) H 11/23/18 06:00 Plt Count 356 x1000/uL (130-400) 11/23/18 06:00 MPV 10.3 fL (8.0-11.0) 11/23/18 06:00 Immature Gran % 0.4 11/22/18 14:35 Neutrophils % 82.9 11/22/18 14:35 Lymphocytes % 7.0 11/22/18 14:35 Monocytes % 9.2 11/22/18 14:35 Eosinophils % 0.3 11/22/18 14:35 Basophils % 0.2 11/22/18 14:35 Absolute Neutrophils 16.95 k/cumm (1.2-6.7) H 11/22/18 14:35 Absolute Lymphocytes 1.43 k/cumm (1.2-3.4) 11/22/18 14:35 Absolute Monocytes 1.88 k/cumm (0.11-0.7) H 11/22/18 14:35 Absolute Eosinophils 0.06 k/cumm (0.0-0.7) 11/22/18 14:35 Absolute Basophils 0.04 k/cumm (0.0-0.2) 11/22/18 14:35 Differential Comment Diff reviewed 11/22/18 14:35 RBC Morphology See below 11/22/18 14:35 Hypochromasia 2+ 11/22/18 14:35 Stomatocytes 3+ 11/22/18 14:35 D-Dimer 1946 ng/mlFEU (<500) H 11/22/18 14:35 Sample Site Left radial 11/23/18 09:30 pCO2 31 mmHg (34-47) L 11/23/18 09:30 pO2 61 mmHg (83-108) L 11/23/18 09:30 O2 Saturation 93 % (94-98) L 11/23/18 09:30 ABG pH 7.45 (7.35-7.45) 11/23/18 09:30 ABG HCO3 22 mmol/L (22-28) 11/23/18 09:30 ABG Total CO2 21 mmol/L (22-29) L 11/23/18 09:30 ABG Base Excess -2.3 mmol/L (-3-3) 11/23/18 09:30 Oxygen Liter Flow R/a L 11/23/18 09:30 Sodium 139 mmol/L (136-145) 11/23/18 06:00 Potassium 4.3 mmol/L (3.5-5.1) 11/23/18 06:00 Chloride 106 mmol/L (98-107) 11/23/18 06:00 Carbon Dioxide 25.0 mmol/L (21.0-32.0) 11/23/18 06:00 Anion Gap 8.0 mmol/L (3-11) 11/23/18 06:00 BUN 28 mg/dL (7-18) H 11/23/18 06:00 Creatinine 0.86 mg/dL (0.55-1.02) 11/23/18 06:00 Estimated GFR/1.73 m2 >= 60.00 (mL/min/1.73m2) 11/23/18 06:00 Glucose 128 mg/dL (70-100) H 11/23/18 06:00 Lactate 0.9 mmol/l (0.6-1.4) 11/22/18 17:31 Calcium 8.6 mg/dL (8.5-10.1) 11/23/18 06:00 Magnesium 1.8 mg/dL (1.8-2.4) 11/22/18 14:35 Total Bilirubin 0.3 mg/dL (0.2-1.0) 11/23/18 06:00 AST 12 U/L (15-37) L 11/23/18 06:00 ALT 37 U/L (12-78) 11/23/18 06:00 Alkaline Phosphatase 70 U/L (46-116) 11/23/18 06:00 Troponin I < 0.02 ng/mL (0.00-0.06) 11/22/18 23:00 NT-Pro-B Natriuret Pep 504 pg/mL (-299) H 11/22/18 14:35 Total Protein 5.6 g/dL (6.4-8.2) L 11/23/18 06:00 Albumin 1.7 g/dL (3.4-5.0) L 11/23/18 06:00 TSH 0.79 uIU/mL (0.358-3.74) 11/22/18 17:31
[2018-11-23] MEDS: Enoxaparin 40 MG/0.4 ML SYR SC (12:28)
[2018-11-23] MEDS: Normal Saline Flush 10 ML SYR IVP ×3 (12:28→21:38)
[2018-11-23] MEDS: guaiFENesin 600 MG TABCR PO ×2 (12:28→21:32)
--- NOTE | 2018-11-23 12:28 | PDOC.CMIN ---
- If Service Date Differs Date of service: 11/23/18 Time of Service: 12:28 Care Management Initial Assess REASON FOR HOSPITALIZATION:: Pneumonia with a history of COPD, she was discharged one week ago from acute facility in [place]. PAST MEDICAL HISTORY/PAST SURGICAL HISTORY:: COPD, history of tobacco use, and hypothyroidism PREVIOUS FUNCTIONAL STATUS/SOCIAL/FAMILY SUPPORTS:: Lisbeth lives with her spouse Power on [place], [place]. 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 Since her recent illness and prolonged hospital stay she has started using a walker for ambulation. She reports weakness and she is not driving at this time. CURRENT FUNCTIONAL STATUS:: Lisbeth is alert and engaged during CM assessment. She has some difficulty completing full sentences and her voice is shakey. She states she has not fully recovered since her discharge from last hospital. She reports she was starting to feel better when she left and flew home. I had a few good days she reports. She states she went to see her primary care and thought she was improving then began having difficulty completing task, feeling increased shortness of breath and a fast heartrate. She states when she checked her pulse ox at home her heartrate was in the 120's however her oxgen stayed normal for her in the mid 90's. After a few days she decided to be seen at the ED and was admitted. She states she has completed pulmonary rehab at [facility] and that she continued with the program on her own. She is planning on returning once she feels better twice a week. She describes a good relationship with her pulmonolgist in [place] and her primary care provider. ADVANCE DIRECTIVES:: On file at [facility] Has patient been provided with information about the portal?: Yes Did the patient sign up for the portal?: No (enrolled ) CODE STATUS:: DNR/DNI INSURANCE COVERAGE / FINANCIAL ISSUES:: [facility] CURRENT HOME/COMMUNITY SERVICES/EQUIPMENT:: [facility] [place] and pulmonary rehab PRIMARY CARE PHYSICIAN:: SUE Durand [facility] POTENTIAL DISCHARGE NEEDS:: Follow up appointment with primary care, discharge faxed to chronic healthcare customer service at [facility] and [facility] health services for PT related to prolonged hospitalization. PATIENT/FAMILY EDUCATION NEEDS:: Discharge education, limitations and follow up plan of care including self management and ask me three. ANTICIPATED BARRIERS TO DISCHARGE:: None identified. TRANSPORTATION:: Via private car with spouse at time of discharge. PLAN:: Lisbeth is currently ICU level of care, she is receiving IV antibiotics. She will return home when medically ready. She would like [facility] PT at time of discharge she does have inpatient PT consult. She will need a new face to face for home health servcies at discharge.
[2018-11-23] MEDS: VANCOMYCIN 750 MG in Normal Saline 250 ML 166.667 MG IV (12:29)
--- NOTE | 2018-11-23 13:12 | INITIAL_ITS ---
- If Service Date Differs Date of service: 11/23/18 Time of Service: 12:28 Care Management Initial Assess REASON FOR HOSPITALIZATION:: Pneumonia with a history of COPD, she was discharged one week ago from acute facility in [place]. PAST MEDICAL HISTORY/PAST SURGICAL HISTORY:: COPD, history of tobacco use, and hypothyroidism PREVIOUS FUNCTIONAL STATUS/SOCIAL/FAMILY SUPPORTS:: Lisbeth lives with her spouse Power on [address] [place], [place]. 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 Since her recent illness and prolonged hospital stay she has started using a walker for ambulation. She reports weakness and she is not driving at this time. CURRENT FUNCTIONAL STATUS:: Lisbeth is alert and engaged during CM assessment. She has some difficulty completing full sentences and her voice is shakey. She states she has not fully recovered since her discharge from last hospital. She reports she was starting to feel better when she left and flew home. I had a few good days she reports. She states she went to see her primary care and thought she was improving then began having difficulty completing task, feeling increased shortness of breath and a fast heartrate. She states when she checked her pulse ox at home her heartrate was in the 120's however her oxgen stayed normal for her in the mid 90's. After a few days she decided to be seen at the ED and was admitted. She states she has completed pulmonary rehab at [facility] and that she continued with the program on her own. She is planning on returning once she feels better twice a week. She describes a good relationship with her pulmonolgist in [place] and her primary care provider. ADVANCE DIRECTIVES:: On file at [facility] Has patient been provided with information about the portal?: Yes Did the patient sign up for the portal?: No (enrolled ) CODE STATUS:: DNR/DNI INSURANCE COVERAGE / FINANCIAL ISSUES:: [facility] CURRENT HOME/COMMUNITY SERVICES/EQUIPMENT:: [facility] [place] and [place]hab PRIMARY CARE PHYSICIAN:: SUE Durand [facility] POTENTIAL DISCHARGE NEEDS:: Follow up appointment with primary care, discharge faxed to chronic primary care provider at [facility] and [facility] health services for PT related to prolonged hospitalization. PATIENT/FAMILY EDUCATION NEEDS:: Discharge education, limitations and follow up plan of care including self management and ask me three. ANTICIPATED BARRIERS TO DISCHARGE:: None identified. TRANSPORTATION:: Via private car with spouse at time of discharge. PLAN:: Lisbeth is currently ICU level of care, she is receiving IV antibiotics. She will return home when medically ready. She would like [facility] PT at time of discharge she does have inpatient PT consult. She will need a new face to face for home health servcies at discharge.
[2018-11-23] MEDS: Benzonatate 200 MG CAP PO ×2 (14:20→21:32)
[2018-11-23] MEDS: traZODone 50 MG TAB PO (21:33)
[2018-11-23] MEDS: Docusate Sodium 100 MG CAP PO (21:33)
[2018-11-23] MEDS: Budesonide/Formoterol 160/4.5 6 GM 60 PUFF INH IH (21:35)
[2018-11-24] VITALS (17 sets, daily range): BP systolic 102–140; BP diastolic 51–94; PULSE 70–90; RESP 1–23; TEMP 36.3–36.7; O2SAT 90–98
[2018-11-24] MEDS: VANCOMYCIN 750 MG in Normal Saline 250 ML 167 MG IV ×2 (00:06→13:14)
[2018-11-24] MEDS: Normal Saline 1,000 ML 30 ML IV (01:01)
[2018-11-24] MEDS: Albuterol/Ipratropium 3 ML UPD VIAL UPD ×2 (02:02→18:28)
[2018-11-24] MEDS: Levothyroxine 75 MCG TAB PO (05:26)
[2018-11-24] MEDS: methylPREDNISolone SUCC 125 MG VIAL 80 MG IVP (05:26)
[2018-11-24] MEDS: CEFEPIME 2 GM in Normal Saline 100 ML IVPB ×2 (05:28→17:43)
[2018-11-24 07:25] LABS: Anion Gap 10.2 mmol/L (3-11); BUN 27 mg/dL (7-18); CO2 21.8 mmol/L (21.0-32.0); CREATININE 0.86 mg/dL (0.55-1.02); Calcium 8.3 mg/dL (8.5-10.1); Chloride 109 mmol/L (98-107); Glucose 133 mg/dL (70-100); Sodium 141 mmol/L (136-145)
[2018-11-24 08:15] LABS: Folate 17.8 ng/mL (8.6-20.0); Magnesium 1.9 mg/dL (1.8-2.4); Vitamin B12 1162 pg/mL (193-986)
[2018-11-24 08:15] LABS: Iron 58 ug/dL (50-175); Total Iron Binding Capacity 149 ug/dL (250-450); Transferrin Sat 39 % (15-50)
[2018-11-24 08:20] LABS: Ferritin 1754 ng/mL (8-388)
[2018-11-24] MEDS: busPIRone 5 MG TAB 10 MG PO (08:24)
[2018-11-24] MEDS: guaiFENesin 600 MG TABCR PO ×2 (08:24→19:38)
[2018-11-24] MEDS: Docusate Sodium 100 MG CAP PO (08:24)
[2018-11-24] MEDS: Benzonatate 200 MG CAP PO ×3 (08:24→19:38)
[2018-11-24] MEDS: Pantoprazole 40 MG TABCR PO (08:24)
[2018-11-24] MEDS: Acetaminophen 325 MG TAB 650 MG PO (08:25)
[2018-11-24 08:49] LABS: Abs Immature Grans 0.12 k/cumm (0.0-0.09); Absolute Basophil Count 0.02 k/cumm (0.0-0.2); Absolute Monocyte Count 0.72 k/cumm (0.11-0.7); Absolute Neutrophil Count 19.33 k/cumm (1.2-6.7); Basophils % 0.1; HCT 26.8 % (36.0-46.0); HGB 8.6 g/dL (12.0-15.5); Immature Grans % 0.6; Lymphocytes % 6.9; Mean Corp. HGB Concentration 32.1 g/dL (32.0-36.0); Mean Corpuscular Hemoglobin 31.5 pg (27.0-33.0); Mean Corpuscular Volume 98.2 fL (80-95); Mean Platelet Volume 10.9 fL (8.0-11.0); Monocytes % 3.3; Neutrophils % 89.1; Platelet Count 375 x1000/uL (130-400); RBC 2.73 m/cumm (4.00-5.20); RBC Distribution Width 14.9 % (11.7-14.6); White Blood Cell Count 21.69 k/cumm (4.4-10.8)
[2018-11-24 08:53] LABS: Anisocytosis 1+; Diff Comment Diff Reviewed; Hypochromasia 1+; Polychromasia Present
--- NOTE | 2018-11-24 10:24 | PDOC.CMPRO ---
- If Service Date Differs Date of service: 11/24/18 Time of Service: 10:24 Care Management Progress Note S/O:Lisbeth will transition to medical surgical unit today. She continues to receive IV antibiotics she states she wants to return home she had thought about a SNF r/t to her weakness. She would first like to return home with home health PT and be with her spouse. Lisbeth does have a PT order to assess level of care and ability to care for self. A:Lisbeth is a 73 year old female admitted with pneumonia after recent hospitalization and intubation. She discharged a week ago from an acute care facility. P:Lisbeth will be discharged home with new home health services for PT. She remains on IV antibiotics and steroids. She will transition to medical surgical admission today.
[2018-11-24] MEDS: Budesonide/Formoterol 160/4.5 6 GM 60 PUFF INH IH ×2 (10:53→19:35)
[2018-11-24] MEDS: methylPREDNISolone SUCC 125 MG VIAL 60 MG IVP ×2 (13:17→22:34)
[2018-11-24] MEDS: Enoxaparin 40 MG/0.4 ML SYR SC (13:17)
--- NOTE | 2018-11-24 15:08 | OT.INIE ---
Occupational Therapy Notes Inpatient Occupational Therapy Evaluation Date: 11/24/18 Referring Doctor:Sindhu Lomas MD OT Orders: Eval and Treat Precautions: Fall, Standard PATIENT PROFILE/ADMITTING DIAGNOSIS: Pt is a 73 year old female who was admitted through the ER on 11/22/18 after a recent hospitalization in [place] which she was discharged 1 week ago. Upon return to [place] pt was admitted for HCAP, COPD with an exacerbation and is being treated in the ICU at this time with possible transition to Med Surg later today. Past Medical History: Medical History COPD (chronic obstructive pulmonary disease) Diverticulosis History of tobacco abuse Hypothyroid Osteopenia Surgical History Colonoscopy - MAC (06/22/16) Social History/Home Situation: Pt lives in a private home with her . She reports that she is mostly (I) with ADLs however her does attempt to (A) her when needed. She states that she has a walk in shower. She is very fearful of this and feels unsure about her bathing routine. She has a shower bench to sit on but it still makes her nervous. Her (A) with dressing and cooking. She has a regular toilet which she is able to perform (I). She reports that most of her (A) at this time comes from her when it is needed. She does not currently perform community ambulation (I) and relies on her . Pt has 2 steps to get into her home which she reports are large enough to place the walker on the step. Equipment owned/DME: Shower bench, grab bars, FWW SUBJECTIVE: Pt was sitting in bed when OT arrived. She reports that she is tired but feels a little better. OBJECTIVE: General Observation: O2 nasal cannula (not pts baseline), IV (R) UE, red sore/ecchymosis on (L) UE which pt reports is from BP cuff. Mental Status: A&Ox3 Pain: Pt states that she is weak and has increased pain in (L) UE d/t BP cuff on arm. ROM: RUE Shoulder flexion WNL, elbow WNL, hand/digits WNL L UE Shoulder flexion unable to lift as this is sore to pt, elbow WNL, hand/digits WNL STRENGTH: RUE 4-/5 throughout globally LUE Unable to test shoulder flexion d/t pain, elbow 4/5, child support specialist 4/5 FUNCTIONAL MOBILITY/ADLS: ADLs/IADLs perform prior to OT session with nursing. Pt states that she would like to get stronger and more (I) in ADL routines so that her doesn't have to take care of her as much as he does. BALANCE: Static sitting Good Dynamic Sitting Good Static Standing NT Dynamic Standing NT SPECIAL TESTS: Daily Activity Limitations Standardized Measure [facility] AM -PAC ?6 clicks? Daily Activity Inpatient Short Form: Raw score: 18 Standardized score: 38.66 CMS score: 46.65% INFORMED CONSENT/EDUCATION: Pt instructed in purpose of OT Consult and plan of care. ASSESSMENT: Patient is a 73-year-old female referred to occupational therapy services with diagnosis of HCAP, COPD exacerbation. Patient presents with clinical signs and symptoms consistent with dx, as demonstrated by the following impairment level findings/functional limitations: Decreased strength in (B) UE, decreased shoulder flexion in (L) UE due to pain, decreased functional activity tolerance, decreased functional mobility, unable to perform ADLs at her baseline level of function. AMPAC score 18, CMS score 46.65% Patient is assessed as a Moderate 34623 complexity based on the following: History: See Above Examination: See Above Presentation: Evolving Decision Making: AMPAC score 18, CMS score 46.65% GOALS Goals x1 week in hospital setting 1. Transfers Min (A) FWW 2. Dressing (I) sitting in chair 3. Bathing (I) sitting in chair 4. Toileting (I) on toilet 5. Eating (I) 6. Teeth and Hair (I) standing at sink with FWW PLAN OF CARE/TREATMENT PLAN: 1x/day, 5 days/ week x 1week Initiate Occupational Therapy Services for bathing, dressing, grooming, toileting, eating, transfer training. DISCHARGE RECOMMENDATIONS Pt was not receptive to SNF. However OT recommends SNF vs home with home health OT/PT services to increase pts (I) and safety in home setting. TREATMENT TIME/MINUTES/CODES 02446, 15 minutes (11:00) Kenyetta Miller OTR/L [facility]
--- NOTE | 2018-11-24 15:13 | OTIE_ITS ---
Occupational Therapy Notes Inpatient Occupational Therapy Evaluation Date: 11/24/18 Referring Doctor:Sindhu Lomas MD OT Orders: Eval and Treat Precautions: Fall, Standard PATIENT PROFILE/ADMITTING DIAGNOSIS: Pt is a 73 year old female who was admitted through the ER on 11/22/18 after a recent hospitalization in [place] which she was discharged 1 week ago. Upon return to [place] pt was admitted for HCAP, COPD with an exacerbation and is being treated in the ICU at this time with possible transition to Med Surg later today. Past Medical History: Medical History COPD (chronic obstructive pulmonary disease) Diverticulosis History of tobacco abuse Hypothyroid Osteopenia Surgical History Colonoscopy - MAC (06/22/16) Social History/Home Situation: Pt lives in a private home with her . She reports that she is mostly (I) with ADLs however her does attempt to (A) her when needed. She states that she has a walk in shower. She is very fearful of this and feels unsure about her bathing routine. She has a shower bench to sit on but it still makes her nervous. Her (A) with dressing and cooking. She has a regular toilet which she is able to perform (I). She reports that most of her (A) at this time comes from her when it is needed. She does not currently perform community ambulation (I) and relies on her . Pt has 2 steps to get into her home which she reports are large enough to place the walker on the step. Equipment owned/DME: Shower bench, grab bars, FWW SUBJECTIVE: Pt was sitting in bed when OT arrived. She reports that she is tired but feels a little better. OBJECTIVE: General Observation: O2 nasal cannula (not pts baseline), IV (R) UE, red sore/ecchymosis on (L) UE which pt reports is from BP cuff. Mental Status: A&Ox3 Pain: Pt states that she is weak and has increased pain in (L) UE d/t BP cuff on arm. ROM: RUE Shoulder flexion WNL, elbow WNL, hand/digits WNL L UE Shoulder flexion unable to lift as this is sore to pt, elbow WNL, smalls d/digits WNL STRENGTH: RUE 4-/5 throughout globally LUE Unable to test shoulder flexion d/t pain, elbow 4/5, shredding floor equipment operator 4/5 FUNCTIONAL MOBILITY/ADLS: ADLs/IADLs perform prior to OT session with nursing. Pt states that she would like to get stronger and more (I) in ADL routines so that her doesn't have to take care of her as much as he does. BALANCE: Static sitting Good Dynamic Sitting Good Static Standing NT Dynamic Standing NT SPECIAL TESTS: Daily Activity Limitations Standardized Measure [facility] AM -PAC ?6 clicks? Daily Activity Inpatient Short Form: Raw score: 18 Standardized score: 38.66 CMS score: 46.65% INFORMED CONSENT/EDUCATION: Pt instructed in purpose of OT Consult and plan of care. ASSESSMENT: Patient is a 73-year-old female referred to occupational therapy services with diagnosis of HCAP, COPD exacerbation. Patient presents with clin ical signs and symptoms consistent with dx, as demonstrated by the following impairment level findings/functional limitations: Decreased strength in (B) UE, decreased shoulder flexion in (L) UE due to pain, decreased functional activity tolerance, decreased functional mobility, unable to perform ADLs at her baseline level of function. AMPAC score 18, CMS score 46.65% Patient is assessed as a Moderate 24893 complexity based on the following: History: See Above Examination: See Above Presentation: Evolving Decision Making: AMPAC score 18, CMS score 46.65% GOALS Goals x1 week in hospital setting 1. Transfers Min (A) FWW 2. Dressing (I) sitting in chair 3. Bathing (I) sitting in chair 4. Toileting (I) on toilet 5. Eating (I) 6. Teeth and Hair (I) standing at sink with FWW PLAN OF CARE/TREATMENT PLAN: 1x/day, 5 days/ week x 1week Initiate Occupational Therapy Services for bathing, dressing, grooming, toileting, eating, transfer training. DISCHARGE RECOMMENDATIONS Pt was not receptive to SNF. However OT recommends SNF vs home with home health OT/PT services to increase pts (I) and safety in home setting. TREATMENT TIME/MINUTES/CODES 84164, 15 minutes (11:00) Kenyetta Miller OTR/L [facility]
--- NOTE | 2018-11-24 15:29 | W.PM.PROGNOT ---
Date of Service Date of service: 11/24/18 Time of Service: 08:25 Assessment and Plan (1) HCAP (healthcare-associated pneumonia): Current visit: Yes Status: Acute Present on admission, in fact, possibly VAP. Now appears to have plateaued. Continue empiric vancomycin, cefepime and levofloxacin. Blood cx show NGTD. Sputum cx are pending. WBC is rising, but the patient is on steroids. On room air, refusing BiPAP (states she has bad memories of being on it on her recent hospitalization). Transfer out of the ICU. (2) COPD exacerbation: Current visit: Yes Status: Acute As above Continue vancomycin (Day 2), cefepime/levofloxacin (Day 3). Continue symbicort, scheduled and prn nebs, antitussives, steroids (on PPI ppx). (3) Hypoxia: Current visit: Yes Status: Resolved Not requiring O2 at rest Monitor. (4) Adrenal insufficiency: Current visit: Yes Status: Acute While it is possible that the patient's hypotension on presentation had to do with her impending shock/sepsis, she was also on a lengthy course of steroids as outpatient and did get acutely ill, so acute adrenal insufficiency is also very possible. Start to decrease steroids. The patient will need a protracted steroid taper on discharge. (5) Macrocytic anemia: Current visit: Yes Status: Acute Acute on chronic and likely also dilutional. Hemoccult negative, H/H is trending down, however. Dilutional + from blood draws. No evidence of iron, B12 or folic acid deficiency. No evidence of active bleeding. (6) Discharge planning issues: Current visit: Yes Status: Acute DNR/DNI (7) DVT prophylaxis: Current visit: Yes Status: Acute Continue lovenox SC Subjective Interval history since last seen: Ms Taylor states she feels about the same as yesterday, short of breath. She still thinks she isn't speaking like her normal self. Denies dizziness, chest pain, nausea, vomiting. Exam Narrative Exam Narrative: General: Very pleasant frail female, sitting up in a chair, A&Ox3, pausing to breathe every 3-4 words, essentially unchanged HEENT: EOMI, MMM Heart: RRR, no m/r/g Lungs: diminished aeration but clear to auscultation B GI: abdomen is soft, nontender, nondistended Extremities: no e/c/c BLE's, 2+ pedal pulses B Objective Objective Clinical Data: Abnormal lab results 11/24/18 11/24/18 11/24/18 Range/Units 06:25 06:25 06:25 WBC 21.69 H D (4.4-10.8) k/cumm RBC 2.73 L (4.00-5.20) m/cumm Hgb 8.6 L (12.0-15.5) g/dL Hct 26.8 L (36.0-46.0) % MCV 98.2 H (80-95) fL RDW 14.9 H (11.7-14.6) % Absolute Neutrophils 19.33 H (1.2-6.7) k/cumm Absolute Monocytes 0.72 H (0.11-0.7) k/cumm Chloride 109 H (98-107) mmol/L BUN 27 H (7-18) mg/dL Glucose 133 H (70-100) mg/dL Calcium 8.3 L (8.5-10.1) mg/dL TIBC (250-450) ug/dL Ferritin 1754 H (8-388) ng/mL Vitamin B12 1162 H (193-986) pg/mL 11/24/18 Range/Units 07:00 WBC (4.4-10.8) k/cumm RBC (4.00-5.20) m/cumm Hgb (12.0-15.5) g/dL Hct (36.0-46.0) % MCV (80-95) fL RDW (11.7-14.6) % Absolute Neutrophils (1.2-6.7) k/cumm Absolute Monocytes (0.11-0.7) k/cumm Chloride (98-107) mmol/L BUN (7-18) mg/dL Glucose (70-100) mg/dL Calcium (8.5-10.1) mg/dL TIBC 149 L (250-450) ug/dL Ferritin (8-388) ng/mL Vitamin B12 (193-986) pg/mL Vital Signs Temperature 36.5 C 11/24/18 08:30 Temperature Source Tympanic 11/24/18 08:30 Pulse 80 11/24/18 08:00 Pulse 89 04/22/19 08:01 Respiratory Rate 14 11/24/18 08:01 Respiratory Effort Accessory Muscle Use 11/24/18 08:30 Respiratory Depth Normal 11/24/18 08:30 Respiratory Pattern Tachypnea 11/24/18 08:30 Blood Pressure 120/66 11/24/18 08:00 Blood Pressure Mean 79 11/24/18 08:00 Blood Pressure Position Supine 11/24/18 08:30 Pulse Oximetry 98 11/24/18 10:00 Oxygen Delivery Method Room Air 11/24/18 08:30 Oxygen Flow Rate 0 11/24/18 08:30 Pain Level 0 11/24/18 08:30 Intake & Output 11/23/18 11/24/18 11/24/18 23:59 11:59 23:59 Intake Total 1360.000 / 3570.000 782 / 782 Output Total 600 / 1000 390 / 390 Balance 760.000 / 2570.000 392 / 392 Weight 41.7 kg Intake: IV 660.000 / 2505.000 782 / 782 Oral 700 / 1065 Output: Urine 600 / 1000 390 / 390 Other: Urine Color Yellow Yellow Urine Appearance Clear Clear Urine Odor Normal Normal Comment Voids to bedside commode. Pt last voided at 2245, has not voided since and denies the urge to void at this time. This is normal for me. Stool Occult Blood Negative Stool Size Small Stool Characteristics Hard Voiding Methods Bedside Commode Bedside Commode Laboratory Results WBC 21.69 k/cumm (4.4-10.8) H D 11/24/18 06:25 RBC 2.73 m/cumm (4.00-5.20) L 11/24/18 06:25 Hgb 8.6 g/dL (12.0-15.5) L 11/24/18 06:25 Hct 26.8 % (36.0-46.0) L 11/24/18 06:25 MCV 98.2 fL (80-95) H 11/24/18 06:25 MCH 31.5 pg (27.0-33.0) 11/24/18 06:25 MCHC 32.1 g/dL (32.0-36.0) 11/24/18 06:25 RDW 14.9 % (11.7-14.6) H 11/24/18 06:25 Plt Count 375 x1000/uL (130-400) 11/24/18 06:25 MPV 10.9 fL (8.0-11.0) 11/24/18 06:25 Immature Gran % 0.6 11/24/18 06:25 Neutrophils % 89.1 11/24/18 06:25 Lymphocytes % 6.9 11/24/18 06:25 Monocytes % 3.3 11/24/18 06:25 Eosinophils % 0.0 11/24/18 06:25 Basophils % 0.1 11/24/18 06:25 Absolute Neutrophils 19.33 k/cumm (1.2-6.7) H 11/24/18 06:25 Absolute Lymphocytes 1.50 k/cumm (1.2-3.4) 11/24/18 06:25 Absolute Monocytes 0.72 k/cumm (0.11-0.7) H 11/24/18 06:25 Absolute Eosinophils 0.00 k/cumm (0.0-0.7) 11/24/18 06:25 Absolute Basophils 0.02 k/cumm (0.0-0.2) 11/24/18 06:25 Differential Comment Diff reviewed 11/24/18 06:25 RBC Morphology See below 11/24/18 06:25 Polychromasia Present 11/24/18 06:25 Hypochromasia 1+ 11/24/18 06:25 Anisocytosis 1+ 11/24/18 06:25 Stomatocytes 3+ 11/22/18 14:35 D-Dimer 1946 ng/mlFEU (<500) H 11/22/18 14:35 Sample Site Left radial 11/23/18 09:30 pCO2 31 mmHg (34-47) L 11/23/18 09:30 pO2 61 mmHg (83-108) L 11/23/18 09:30 O2 Saturation 93 % (94-98) L 11/23/18 09:30 ABG pH 7.45 (7.35-7.45) 11/23/18 09:30 ABG HCO3 22 mmol/L (22-28) 11/23/18 09:30 ABG Total CO2 21 mmol/L (22-29) L 11/23/18 09:30 ABG Base Excess -2.3 mmol/L (-3-3) 11/23/18 09:30 Oxygen Liter Flow R/a L 11/23/18 09:30 Sodium 141 mmol/L (136-145) 11/24/18 06:25 Potassium 4.0 mmol/L (3.5-5.1) 11/24/18 06:25 Chloride 109 mmol/L (98-107) H 11/24/18 06:25 Carbon Dioxide 21.8 mmol/L (21.0-32.0) 11/24/18 06:25 Anion Gap 10.2 mmol/L (3-11) 11/24/18 06:25 BUN 27 mg/dL (7-18) H 11/24/18 06:25 Creatinine 0.86 mg/dL (0.55-1.02) 11/24/18 06:25 Estimated GFR/1.73 m2 >= 60.00 (mL/min/1.73m2) 11/24/18 06:25 Glucose 133 mg/dL (70-100) H 11/24/18 06:25 Lactate 0.9 mmol/l (0.6-1.4) 11/22/18 17:31 Calcium 8.3 mg/dL (8.5-10.1) L 11/24/18 06:25 Magnesium 1.9 mg/dL (1.8-2.4) 11/24/18 06:25 Iron 58 ug/dL (50-175) 11/24/18 07:00 TIBC 149 ug/dL (250-450) L 11/24/18 07:00 Transferrin % Sat 39 % (15-50) 11/24/18 07:00 Ferritin 1754 ng/mL (8-388) H 11/24/18 06:25 Total Bilirubin 0.3 mg/dL (0.2-1.0) 11/23/18 06:00 AST 12 U/L (15-37) L 11/23/18 06:00 ALT 37 U/L (12-78) 11/23/18 06:00 Alkaline Phosphatase 70 U/L (46-116) 11/23/18 06:00 Troponin I < 0.02 ng/mL (0.00-0.06) 11/22/18 23:00 NT-Pro-B Natriuret Pep 504 pg/mL (-299) H 11/22/18 14:35 Total Protein 5.6 g/dL (6.4-8.2) L 11/23/18 06:00 Albumin 1.7 g/dL (3.4-5.0) L 11/23/18 06:00 Vitamin B12 1162 pg/mL (193-986) H 11/24/18 06:25 Folate 17.8 ng/mL (8.6-20.0) 11/24/18 06:25 TSH 0.79 uIU/mL (0.358-3.74) 11/22/18 17:31
--- NOTE | 2018-11-24 16:15 | PT.INIE ---
Date of service: 11/24/18 Time of Service: 09:31 PT Notes Inpatient Physical Therapy Evaluation Date: 11/24/2018 Referring Doctor: Sindhu Lomas MD PT Orders: PT CONSULT: Eval/treat Precautions: Fall. Standard., Needs frequent rests. Patient Profile/Admitting Diagnosis: Patient is a 73-year-old who was sent to the ED for increasing shortness of breath. Patient was diagnosed with healthcare-acquired lower lobe pneumonia and right lower lobe infiltration, COPD exacerbation, and hypoxia. She was recently hospitalized in October 2018 for COPD exacerbation with hypercapnia and intubation. PMHX: Medical History COPD (chronic obstructive pulmonary disease) Diverticulosis History of tobacco abuse Hypothyroid Osteopenia Surgical History Colonoscopy - MAC (06/22/16) Social History/Home Situation: Patient lives with [place] in [place], [place] a 2 floor house. She has everything she needs on the main floor and does not need to negotiate steps to the second floor of the house. Patient has been participating in a pulmonary rehabilitation program twice a week at [facility] for 1.5 years now. She states that she has front wheeled walker that she uses for outdoor ambulation. Current Functional Limitations: Dyspnea at rest, significantly reduced activity tolerance Equipment Owned/DME: FWW Subjective: Reports that it hurts to breathe, she states that her left anterolateral chest hurts with bouts of coughing. She reports she had a difficulty swallowing a pill last night. She is agreeable to a PT evaluation and treatment. Objective: General Observation: Continuous oxygen via nasal cannula on 2 L/min. IV in the right UE. No digital clubbing and cyanosis observed. Mental Status: Alert and oriented x3 Pain: Discomfort on left anterior lateral chest at 1-2/10 with deep breathing and forceful successive coughs ROM: ROM: Right Upper Extremity: Shoulder Flexion WFL. Shoulder abduction WFL. Elbow flexion WFL. Wrist flexion WFL. Functional opening and closing of hand WFL. Left Upper Extremity: Shoulder Flexion WFL. Shoulder abduction WFL. Elbow flexion WFL. Wrist flexion WFL. Functional opening and closing of hand WFL. Right Lower Extremity: Hip flexion WFL. Hip abduction WFL. Knee flexion WFL. Ankle dorsiflexion WFL. Ankle plantarflexion WFL. Left Lower Extremity: Hip flexion WFL. Hip abduction WFL. Knee flexion WFL. Ankle dorsiflexion WFL. Ankle plantarflexion WFL. Strength: STRENGTH: Right Upper Extremity: Shoulder flexors 5/5. Shoulder abductors 5/5. Elbow flexors 5/5. Elbow extensors 5/5. Club Steward strong. Left Upper Extremity: Shoulder flexors 5/5. Shoulder abductors 5/5. Elbow flexors 5/5. Elbow extensors 5/5. Club Steward strong. Right Lower Extremity: Hip flexors 4- /5. Hip abductors 4-/5. Knee flexors 4-/5. Knee extensors 4-/5. Ankle dorsiflexors 5/5. Ankle plantarflexors 4-/5. Right Lower Extremity:Hip flexors 4- /5. Hip abductors 4-/5. Knee flexors 4-/5. Knee extensors 4-/5. Ankle dorsiflexors 5/5. Ankle plantarflexors 4-/5. Sensation: Intact as to pain and pressure to BLE. BED MOBILITY LEVELS/TRANSFERS Rolling moderate assist Supine to sit moderate assist Sit to supine moderate assist Sit to stand moderate assist Stand to sit moderate assist Bed to chair moderate assist Chair to bed moderate assist Gait: Patient tolerated 10 feet +15 feet +15 feet using the FWW from ICU room to ICU hallway with oxygen saturation ranging from 91% - 99% on room air with recovery saturation of 97% and HR 79 bpm. Balance: Static Sitting: Good Dynamic Sitting: Good Static Standing: Fair Dynamic Standing: Fair Special Tests: Mobility Limitations Standardized Measure [facility] AM-PAC 6 clicks Basic Mobility Inpatient Short Form: Raw Score: 11 CMS Score: 73% deficit Informed Consent/Education: Patient instructed in purpose of PT consult and plan of care. Patient was also instructed with chest extension exercises as well as with pursed lip breathing functional performance and gait activity. Assessment: Assessment: Patient is a 73 year old female referred to physical therapy services with the diagnosis of progression of healthcare acquired pneumonia, COPD exacerbation, and hypoxia. Patient presents with clinical signs and symptoms consistent with current/admitting diagnoses that have resulted to mobility limitations, gait instability, generalized weakness, and impairment of motor control as demonstrated by the following impairment level findings: 1. Decreased strength to B LE major muscle groups 2. Impaired sitting/standing balance 3. Impaired activity tolerance Impairments are contributing to the following functional limitations: 1. Dependent bed mobility skills 2. Increased dependence with transfers 3. Inability to safely ambulate without assistive device and physical assistance 4. Increase completion time for mobility ADL performance 5. Increased fall risk 6. Inability to negotiate steps alone safely Patient is assessed as a Moderate 48965 complexity based on the following: History: 33-year old female with community healthcare acquired pneumonia, COPD exacerbation and with past medical history and comorbidities as indicated above Examination: Underlying impairments and functional limitations as listed above Presentation: Evolving Decision Makin moderate complexity Goals: Goals X1 week 1. Supine-Sit independent 2. Sit-Supine independent 3. Sit-Stand independent 4. Stand-Sit independent 5. Bed-Chair independent 6. Chair-Bed independent 7. Independent gait on level surface with use of least restrictive device for at least 100 feet oxygen supplementation and without report of lateral chest/rib pain nor dyspnea 8. Independent stair negotiation while holding onto bilateral rails for at least 5 steps without patient and report of pain nor dyspnea 9. Independent with home exercise program 10. Good static and dynamic standing balance/tolerance Plan of Care/Treatment Plan: 1-2x/day, 7 days/week x 1 week. Plan of care has been reviewed with the TRANSPLANT CASE MANAGER providing the service under Physical Therapy direction. Initiate Physical Therapy intervention for strengthening, bed mobility, transfers, gait, stairs, balance training, use of assistive device. DISCHARGE RECOMMENDATIONS: Patient will highly benefit from home health physical therapy maximize activity tolerance, assess home safety, and facilitate caregiver education/training. No equipment needs at this time TREATMENT CODE/TIME: 72251 33 minutes, 47844 25 minutes beginning at 9:31 AM. Thank you for this referral. Marybeth Dick, PT, DPT, CLT [facility]
--- NOTE | 2018-11-24 16:30 | IN_ITS ---
Date of service: 11/24/18 Time of Service: 09:31 PT Notes Inpatient Physical Therapy Evaluation Date: 11/24/2018 Referring Doctor: Sindhu Lomas MD PT Orders: PT CONSULT: Eval/treat Precautions: Fall. Standard., Needs frequent rests. Patient Profile/Admitting Diagnosis: Patient is a 73-year-old who was sent to the ED for increasing shortness of breath. Patient was diagnosed with healthcare-acquired lower lobe pneumonia and right lower lobe infiltration, COPD exacerbation, and hypoxia. She was recently hospitalized in October 2018 for COPD exacerbation with hypercapnia and intubation. PMHX: Medical History COPD (chronic obstructive pulmonary disease) Diverticulosis History of tobacco abuse Hypothyroid Osteopenia Surgical History Colonoscopy - MAC (06/22/16) Social History/Home Situation: Patient lives with [place] in [place], [place] a 2 floor house. She has everything she needs on the main floor and does not need to negotiate steps to the second floor of the house. Patient has been participating in a pulmonary rehabilitation program twice a week at [facility] for 1.5 years now. She states that she has front wheeled walker that she uses for outdoor ambulation. Current Functional Limitations: Dyspnea at rest, significantly reduced activity tolerance Equipment Owned/DME: FWW Subjective: Reports that it hurts to breathe, she states that her left anterolateral chest hurts with bouts of coughing. She reports she had a difficulty swallowing a pill last night. She is agreeable to a PT evaluation and treatment. Objective: General Observation: Continuous oxygen via nasal cannula on 2 L/min. IV in the right UE. No digital clubbing and cyanosis observed. Mental Status: Alert and oriented x3 Pain: Discomfort on left anterior lateral chest at 1-2/10 with deep breathing and forceful successive coughs ROM: ROM: Right Upper Extremity: Shoulder Flexion WFL. Shoulder abduction WFL. Elbow flexion WFL. Wrist flexion WFL. Functional opening and closing of hand WFL. Left Upper Extremity: Shoulder Flexion WFL. Shoulder abduction WFL. Elbow flexion WFL. Wrist flexion WFL. Functional opening and closing of hand WFL. Right Lower Extremity: Hip flexion WFL. Hip abduction WFL. Knee flexion WFL. Ankle dorsiflexion WFL. Ankle plantarflexion WFL. Left Lower Extremity: Hip flexion WFL. Hip abduction WFL. Knee flexion WFL. Ankle dorsiflexion WFL. Ankle plantarflexion WFL. Strength: STRENGTH: Right Upper Extremity: Shoulder flexors 5/5. Shoulder abductors 5/5. Elbow flexors 5/5. Elbow extensors 5/5. Cake Maker strong. Left Upper Extremity: Shoulder flexors 5/5. Shoulder abductors 5/5. Elbow flexors 5/5. Elbow extensors 5/5. Cake Maker strong. Right Lower Extremity: Hip flexors 4- /5. Hip abductors 4-/5. Knee flexors 4-/5. Knee extensors 4-/5. Ankle dorsiflexors 5/5. Ankle plantarflexors 4-/5. Right Lower Extremity:Hip flexors 4- /5. Hip abductors 4-/5. Knee flexors 4-/5. Knee extensors 4-/5. Ankle dorsiflexors 5/5. Ankle plantarflexors 4-/5. Sensation: Intact as to pain and pressure to BLE. BED MOBILITY LEVELS/TRANSFERS Rolling moderate assist Supine to sit moderate assist Sit to supine moderate assist Sit to stand moderate assist Stand to sit moderate assist Bed to chair moderate assist Chair to bed moderate assist Gait: Patient tolerated 10 feet +15 feet +15 feet using the FWW from ICU room to ICU hallway with oxygen saturation ranging from 91% - 99% on room air with recovery saturation of 97% and HR 79 bpm. Balance: Static Sitting: Good Dynamic Sitting: Good Static Standing: Fair Dynamic Standing: Fair Special Tests: Mobility Limitations Standardized Measure [facility] AM-PAC 6 clicks Basic Mobility Inpatient Short Form: Raw Score: 11 CMS Score: 73% deficit Informed Consent/Education: Patient instructed in purpose of PT consult and plan of care. Patient was also instructed with chest extension exercises as well as with pursed lip breathing functional performance and gait activity. Assessment: Assessment: Patient is a 73 year old female referred to physical therapy services with the diagnosis of progression of healthcare acquired pneumonia, COPD exacerbation, and hypoxia. Patient presents with clinical signs and symptoms consistent with current/admitting diagnoses that have resulted to mobility limitations, gait instability, generalized weakness, and impairment of motor control as demonstrated by the following impairment level findings: 1. Decreased strength to B LE major muscle groups 2. Impaired sitting/standing balance 3. Impaired activity tolerance Impairments are contributing to the following functional limitations: 1. Dependent bed mobility skills 2. Increased dependence with transfers 3. Inability to safely ambulate without assistive device and physical assistance 4. Increase completion time for mobility ADL performance 5. Increased fall risk 6. Inability to negotiate steps alone safely Patient is assessed as a Moderate [id number] complexity based on the following: History: 33-year old female with community healthcare acquired pneumonia, COPD exacerbation and with past medical history and comorbidities as indicated above Examination: Underlying impairments and functional limitations as listed above Presentation: Evolving Decision Makin moderate complexity Goals: Goals X1 week 1. Supine-Sit independent 2. Sit-Supine independent 3. Sit-Stand independent 4. Stand-Sit independent 5. Bed-Chair independent 6. Chair-Bed independent 7. Independent gait on level surface with use of least restrictive device for at least 100 feet oxygen supplementation and without report of lateral chest/rib pain nor dyspnea 8. Independent stair negotiation while holding onto bilateral rails for at least 5 steps without patient and report of pain nor dyspnea 9. Independent with home exercise program 10. Good static and dynamic standing balance/tolerance Plan of Care/Treatment Plan: 1-2x/day, 7 days/week x 1 week. Plan of care has been reviewed with the RESERVATION SALES AGENT providing the service under Physical Therapy direction. Initiate Physical Therapy intervention for strengthening, bed mobility, transfers, gait, stairs, balance training, use of assistive device. DISCHARGE RECOMMENDATIONS: Patient will highly benefit from home health physical therapy maximize activity tolerance, assess home safety, and facilitate caregiver education/training. No equipment needs at this time TREATMENT CODE/TIME: 17592 33 minutes, 90203 25 minutes beginning at 9:31 AM. Thank you for this referral. Marybeth Dick, PT, DPT, CLT [facility]
[2018-11-24] MEDS: traZODone 50 MG TAB PO (22:34)
[2018-11-25] VITALS (9 sets, daily range): BP systolic 101–128; BP diastolic 59–71; PULSE 79–105; RESP 16–20; TEMP 36.2–36.8; O2SAT 94–95
[2018-11-25] MEDS: Albuterol/Ipratropium 3 ML UPD VIAL UPD ×4 (00:40→18:27)
[2018-11-25] MEDS: Normal Saline Flush 10 ML SYR IVP ×3 (00:41→14:03)
[2018-11-25] MEDS: VANCOMYCIN 750 MG in Normal Saline 250 ML 167 MG IV ×2 (00:42→12:08)
[2018-11-25] MEDS: Normal Saline 500 ML IV (00:53)
[2018-11-25] MEDS: levoFLOXacin 750 MG/150 ML BAG 100 MG IVPB (02:55)
[2018-11-25] MEDS: Levothyroxine 75 MCG TAB PO (05:25)
[2018-11-25] MEDS: Acetaminophen 325 MG TAB 650 MG PO ×2 (05:25→14:08)
[2018-11-25] MEDS: CEFEPIME 2 GM in Normal Saline 100 ML IVPB ×2 (05:26→17:16)
[2018-11-25] MEDS: methylPREDNISolone SUCC 125 MG VIAL 60 MG IVP (05:26)
[2018-11-25] MEDS: Budesonide/Formoterol 160/4.5 6 GM 60 PUFF INH IH ×2 (07:38→19:12)
[2018-11-25 08:08] LABS: Abs Immature Grans 0.13 k/cumm (0.0-0.09); Absolute Lymphocyte Count 1.28 k/cumm (1.2-3.4); Absolute Monocyte Count 0.81 k/cumm (0.11-0.7); Basophils % 0.1; HCT 29.1 % (36.0-46.0); HGB 9.2 g/dL (12.0-15.5); Immature Grans % 0.8; Lymphocytes % 7.6; Mean Corp. HGB Concentration 31.6 g/dL (32.0-36.0); Mean Platelet Volume 10.6 fL (8.0-11.0); Monocytes % 4.8; Neutrophils % 86.7; Platelet Count 453 x1000/uL (130-400); RBC 2.97 m/cumm (4.00-5.20); RBC Distribution Width 15.2 % (11.7-14.6); White Blood Cell Count 16.89 k/cumm (4.4-10.8)
[2018-11-25 08:10] LABS: Absolute Basophil Count 0.02 k/cumm (0.0-0.2); Absolute Neutrophil Count 14.64 k/cumm (1.2-6.7)
[2018-11-25 08:18] LABS: Anion Gap 9.3 mmol/L (3-11); BUN 30 mg/dL (7-18); CO2 22.7 mmol/L (21.0-32.0); CREATININE 1.08 mg/dL (0.55-1.02); Calcium 8.7 mg/dL (8.5-10.1); Chloride 109 mmol/L (98-107); Estimated GFR 50.01 (mL/min/1.73m2); Glucose 128 mg/dL (70-100); Magnesium 1.8 mg/dL (1.8-2.4); Potassium 3.5 mmol/L (3.5-5.1); Sodium 141 mmol/L (136-145)
[2018-11-25] MEDS: Pantoprazole 40 MG TABCR PO (08:57)
[2018-11-25] MEDS: guaiFENesin 600 MG TABCR PO ×2 (08:58→19:13)
[2018-11-25] MEDS: Benzonatate 200 MG CAP PO ×3 (08:58→19:13)
--- NOTE | 2018-11-25 11:22 | W.SPEECHEVAL ---
Date of service: 11/25/18 Time of Service: 09:45 Speech Therapy Evaluation Note: REFERRING PROVIDER: Dr. Lomas BACKGROUND This is a 73 year old right-handed female who presented to the ED from home on 11/22/18 with a COPD exacerbation. A CXR of that date showed bibasilar infiltrates L > R. She was admitted for tx of both COPD & pneumonia. She reported a h/o difficulty swallowing whole pills, so a swallow evaluation was requested. PMH: COPD, bilateral (B) hearing loss (has B hearing aids), hypothyroidism, diverticulosis, h/o tobacco use. The patient (pt) was recently hospitalized in [place] (10/29/18 - 11/21/18 per her report) during which time she had a breathing tube and a feeding tube through the nose. She states that she did not wear her full upper & lower dentures in the hospital & chose to discontinue their use due to poor fit even after returning home. During her time at home she has been taking what, by description, are Thin liquids, a Dysphagia Advanced diet with moistened fine-chopped meats and whole pills with a liquid wash. OBJECTIVE Nursing reports: - T: 36.3 - O2 sat: 95% on RA - LS: crackles B in the presence of ABX - Pt is currently on Thin liquids, a Regular consistency diet & whole pills in puree. - Pt tolerated: Thin liquids (and prefers using a straw), whole pills in puree. The pt greets me with good direct eye contact, a smile & an intelligible verbal greeting. She converses well, both asking & answering questions. She shows an occasional nonproductive cough. She is A & O x 4 and able to follow 3-step directions. Oral Sensorimotor Exam The pt is totally edentulous and states that she thinks she will continue to go without her full upper and lower dentures even after she returns home. Oral sensation is WNL-B for buccal, labial & lingual areas. Motorically, the smile is symmetrical as are forehead wrinkles. No lingual deviation on protrusion is seen in a setting of good excursion. No lingual fasciculations are seen. Lingual lateralization is WNL-B as are lingual rapid alternating movements. Lingual strength is WNL-B. Mandibular lateralization is WNL-B. Velopharyngeal elevation is strong & symmetrical. Volitional cough & throat-clear are both strong. Speech intelligibility to this unfamiliar listener in the presence of mild background noise is 100%. Vocal intensity is WNL; vocal quality is mildly breathy. Swallowing - Honey-thick liquid: Good bolus control & posterior oral transit (POT); no angela signs/symptoms (s/s) of aspiration/penetration (A/P); oral clearance 100%; no oral escape. These results are true for both single & consecutive swallows by cup. - [place]-thick liquid: Results are the same as for Honey-thick liquid. These results are true for both single and consecutive swallows by both cup & straw. - Thin liquid: Results are the same as for [place]-thick liquid. - Puree food: Good bolus control & linguopalatal bolus compression; POT WNL; no angela s/s A/P; oral clearance 100%; no oral escape. - Mechanically Altered food: Good bolus control, mastication quality & POT; no angela s/s A/P; oral clearance 100%; no oral escape. - Dysphagia Advanced food: Results are the same as for M. A. food. Increased mastication time is used but this does result in good mastication quality. The pt is observed to independently self-feed using her dominant RUE and a regular utensil. INTERPRETATION The pt shows a mild-moderate oral-prep dysphagia secondary to total edentulousness, but no clinical signs of a pharyngeal dysphagia. The pt states that, although she may be able to take whole pills with a liquid wash, she feels safer taking them in puree for now. She says she is comfortable taking smaller pills two at a time in puree. Discussed the possibility of trying to go back to taking whole pills with a liquid wash once she is back home, and she is agreeable to this. RECOMMENDATIONS 1. Change to a Dysphagia Advanced diet with moistened fine-chopped meats. 2. Continue: - Thin liquids - whole pills in puree per pt's preference 3. No speech therapy is indicated at this time. Thank you for referring this pt.
[2018-11-25] MEDS: Enoxaparin 40 MG/0.4 ML SYR SC (12:07)
--- NOTE | 2018-11-25 12:28 | PDOC.CMPRO ---
Care Management Progress Note S/O-Met with Lisbeth today. She continues with IV Abx. She plans to go home and wants HH services for PT and RN to monitor lung status. She is a graduate of the Pulmonary Rehab Program at [facility], and was continuing to attend 2x/wk. She plans to transition back to Pulmonary Rehab there after she can get out of her home after HH services are complete. She recognizes she is quite weak from this current illness that started on their trip to [place]. A-73 yo woman admitted with pneumonia after recent hospitalization and intubation. She was discharged about a week ago from an acute facility in [place]. P-d/c home as per MD with new HH services for RN and PT. to transport.
--- NOTE | 2018-11-25 12:48 | PT.INTREAT ---
Date of service: 11/25/18 Time of Service: 12:48 PT Notes Inpatient Physical Therapy Treatment Note [facility] Date: 11/25/18 PRECAUTIONS: Fall SUBJECTIVE:Lisbeth reports that she wants to return home and is willing to work hard so she does not need to go to a SNF. OBJECTIVE: PAIN: Patient c/o left-sided anterior thigh pain with weight bearing BED MOBILITY/TRANSFERS Sit-stand: SBA in a.m.; S in p.m. Stand-sit: SBA in a.m.; S in p.m. GAIT Assistive Device: FWW Weight bearing: Full Assist: SBA Distance: 50' + 70' in a.m.; 70' + 50' + 20' in p.m. Deviation: Standing rest x1 due to SOB and fatigue in a.m.; standing rest x2 due to SOB and fatigue in p.m. THEREX: Patient completed functional [id number] and shoulder flexion exercises in a.m., as per flow sheet. Patient completed several standing lower extremity strengthening exercises in p.m., as per flow sheet. She requires significant rest periods between exercises due to SOB and fatigue. VITALS: SaO2: 91-96% on RA throughout session ASSESSMENT: Patient tolerated session with c/o SOB and increased fatigue with activity, requiring significant rest periods between activities. She would benefit from continued strengthening, as well as gait training for improved activity tolerance and mobility. PLAN: Continue with PT's POC TREATMENT CODE/TIME: Session 1: 25 minutes; 74053 x2 Session 2: 30 minutes; [id number], [id number]
[2018-11-25] MEDS: methylPREDNISolone SUCC 40 MG VIAL IVP ×2 (14:02→22:21)
--- NOTE | 2018-11-25 14:36 | CMPROGNOTE_ITS ---
Care Management Progress Note S/O-Met with Lisbeth today. She continues with IV Abx. She plans to go home and wants HH services for PT and RN to monitor lung status. She is a graduate of the Pulmonary Rehab Program at [facility], and was continuing to attend 2x/wk. She plans to transition back to Pulmonary Rehab there after she can get out of her home after HH services are complete. She recognizes she is quite weak from this current illness that started on their trip to [place]. A-73 yo woman admitted with pneumonia after recent hospitalization and intubation. She was discharged about a week ago from an acute facility in [place]. P-d/c home as per MD with new HH services for RN and PT. to transport.
[2018-11-25 15:05] LABS: Vancomycin, Trough 19.9 ug/mL (10.0-20.0)
[2018-11-25 15:16] LABS: Streptococcus Pneumoniae Ag, U Negative (Negative)
[2018-11-25] MEDS: Normal Saline 500 ML 30 ML IV (17:17)
--- NOTE | 2018-11-25 19:17 | PGE_ITS ---
Date of Service Date of service: 11/25/18 Time of Service: 16:45 Assessment and Plan (1) HCAP (healthcare-associated pneumonia): Current visit: Yes Status: Acute Present on admission, in fact, possibly VAP. Improved. Continue empiric vancomycin, cefepime and levofloxacin (Day 3) Blood cx show NGTD. Sputum cx with normal salena WBC improved. On room air. Taper steroids. (2) COPD exacerbation: Current visit: Yes Status: Acute As above Continue vancomycin, cefepime/levofloxacin (Day 3). Continue symbicort, scheduled and prn nebs, antitussives, steroids (on PPI ppx). (3) Hypoxia: Current visit: Yes Status: Resolved Not requiring O2 at rest Monitor. (4) Adrenal insufficiency: Current visit: Yes Status: Acute While it is possible that the patient's hypotension on presentation had to do with her impending shock/sepsis, she was also on a lengthy course of steroids as outpatient and did get acutely ill, so acute adrenal insufficiency is also very possible. Continue steroid taper. The patient will need a protracted steroid taper on discharge. (5) Macrocytic anemia: Current visit: Yes Status: Acute Acute on chronic and likely also dilutional. Hemoccult negative, H/H is trending down, however. Dilutional + from blood draws. No evidence of iron, B12 or folic acid deficiency. No evidence of active bleeding. (6) Discharge planning issues: Current visit: Yes Status: Acute DNR/DNI (7) DVT prophylaxis: Current visit: Yes Status: Acute Continue lovenox SC Subjective Interval history since last seen: Feels better today - breathing is better. Her thinks so too. Not as short of breath when talking and not pausing to breathe for a length of a sentence. Denies dizziness, chest pain. States cough is nonproductive. Denies nausea/vom iting. Ambulated with PT today - on room air. Complains of chronic back pain, for which she normally takes aleve Exam Narrative Exam Narrative: General: Very pleasant frail female, sitting up in a chair, A&Ox3, speaking in full sentences, looks better HEENT: EOMI, MMM Heart: RRR, no m/r/g Lungs: improved B air entry; no wheezing GI: abdomen is soft, nontender, nondistended Extremities: no e/c/c BLE's, 2+ pedal pulses B Objective Objective Clinical Data: Abnormal lab results 11/25/18 11/25/18 Range/Units 06:56 06:56 WBC 16.89 H (4.4-10.8) k/cumm RBC 2.97 L (4.00-5.20) m/cumm Hgb 9.2 L (12.0-15.5) g/dL Hct 29.1 L (36.0-46.0) % MCV 98.0 H (80-95) fL MCHC 31.6 L (32.0-36.0) g/dL RDW 15.2 H (11.7-14.6) % Plt Count 453 H (130-400) x1000/uL Absolute Neutrophils 14.64 H (1.2-6.7) k/cumm Absolute Monocytes 0.81 H (0.11-0.7) k/cumm Chloride 109 H (98-107) mmol/L BUN 30 H (7-18) mg/dL Creatinine 1.08 H (0.55-1.02) mg/dL Glucose 128 H (70-100) mg/dL Vital Signs Temperature 36.8 C 11/25/18 19:06 Temperature Source Tympanic 11/25/18 19:06 Pulse 104 H 11/25/18 19:06 Pulse Rhythm Irregular 11/25/18 08:15 Pulse 89 11/24/18 08:01 Respiratory Rate 18 11/25/18 19:06 Respiratory Effort Non-Labored 11/25/18 08:15 Respiratory Depth Normal 11/25/18 08:15 Respiratory Pattern Normal 11/25/18 08:15 Blood Pressure 118/69 11/25/18 19:06 Blood Pressure Mean 79 11/24/18 08:00 Blood Pressure Position Supine 11/24/18 08:30 Pulse Oximetry 94 L 11/25/18 19:06 Oxygen Delivery Method Room Air 11/25/18 19:06 Oxygen Flow Rate 0 11/25/18 19:06 Pain Level 2 11/24/18 21:15 Intake & Output 11/24/18 11/25/18 11/25/18 23:59 11:59 23:59 Intake Total 600 / 1382 940 / 1791.5 851.5 / 1791.5 Output Total 300 / 690 650 / 950 300 / 950 Balance 300 / 692 290 / 841.5 551.5 / 841.5 Weight 45.2 kg Intake: IV 350 / 1132 580 / 951.5 371.5 / 951.5 Oral 250 / 250 360 / 840 480 / 840 Output: Urine 300 / 690 650 / 950 300 / 950 Other: Urine Color Yellow Pale Yellow Yellow Urine Appearance Clear Clear Clear Urine Odor None Comment mixed with BM Stool Occult Blood Negative Negative Stool Size Moderate Large Small Stool Characteristics Formed Soft Soft Brown Formed Formed Brown Voiding Methods Bedside Commode Toilet Laboratory Results WBC 16.89 k/cumm (4.4-10.8) H 11/25/18 06:56 RBC 2.97 m/cumm (4.00-5.20) L 11/25/18 06:56 Hgb 9.2 g/dL (12.0-15.5) L 11/25/18 06:56 Hct 29.1 % (36.0-46.0) L 11/25/18 06:56 MCV 98.0 fL (80-95) H 11/25/18 06:56 MCH 31.0 pg (27.0-33.0) 11/25/18 06:56 MCHC 31.6 g/dL (32.0-36.0) L 11/25/18 06:56 RDW 15.2 % (11.7-14.6) H 11/25/18 06:56 Plt Count 453 x1000/uL (130-400) H 11/25/18 06:56 MPV 10.6 fL (8.0-11.0) 11/25/18 06:56 Immature Gran % 0.8 11/25/18 06:56 Neutrophils % 86.7 11/25/18 06:56 Lymphocytes % 7.6 11/25/18 06:56 Monocytes % 4.8 11/25/18 06:56 Eosinophils % 0.0 11/25/18 06:56 Basophils % 0.1 11/25/18 06:56 Absolute Neutrophils 14.64 k/cumm (1.2-6.7) H 11/25/18 06:56 Absolute Lymphocytes 1.28 k/cumm (1.2-3.4) 11/25/18 06:56 Absolute Monocytes 0.81 k/cumm (0.11-0.7) H 11/25/18 06:56 Absolute Eosinophils 0.00 k/cumm (0.0-0.7) 11/25/18 06:56 Absolute Basophils 0.02 k/cumm (0.0-0.2) 11/25/18 06:56 Differential Comment Diff reviewed 11/24/18 06:25 RBC Morphology See below 11/24/18 06:25 Polychromasia Present 11/24/18 06:25 Hypochromasia 1+ 11/24/18 06:25 Anisocytosis 1+ 11/24/18 06:25 Stomatocytes 3+ 11/22/18 14:35 D-Dimer 1946 ng/mlFEU (<500) H 11/22/18 14:35 Sample Site Left radial 11/23/18 09:30 pCO2 31 mmHg (34-47) L 11/23/18 09:30 pO2 61 mmHg (83-108) L 11/23/18 09:30 O2 Saturation 93 % (94-98) L 11/23/18 09:30 ABG pH 7.45 (7.35-7.45) 11/23/18 09:30 ABG HCO3 22 mmol/L (22-28) 11/23/18 09:30 ABG Total CO2 21 mmol/L (22-29) L 11/23/18 09:30 ABG Base Excess -2.3 mmol/L (-3-3) 11/23/18 09:30 Oxygen Liter Flow R/a L 11/23/18 09:30 Sodium 141 mmol/L (136-145) 11/25/18 06:56 Potassium 3.5 mmol/L (3.5-5.1) 11/25/18 06:56 Chloride 109 mmol/L (98-107) H 11/25/18 06:56 Carbon Dioxide 22.7 mmol/L (21.0-32.0) 11/25/18 06:56 Anion Gap 9.3 mmol/L (3-11) 11/25/18 06:56 BUN 30 mg/dL (7-18) H 11/25/18 06:56 Creatinine 1.08 mg/dL (0.55-1.02) H 11/25/18 06:56 Estimated GFR/1.73 m2 50.01 (mL/min/1.73m2) 11/25/18 06:56 Glucose 128 mg/dL (70-100) H 11/25/18 06:56 Lactate 0.9 mmol/l (0.6-1.4) 11/22/18 17:31 Calcium 8.7 mg/dL (8.5-10.1) 11/25/18 06:56 Magnesium 1.8 mg/dL (1.8-2.4) 11/25/18 06:56 Iron 58 ug/dL (50-175) 11/24/18 07:00 TIBC 149 ug/dL (250-450) L 11/24/18 07:00 Transferrin % Sat 39 % (15-50) 11/24/18 07:00 Ferritin 1754 ng/mL (8-388) H 11/24/18 06:25 Total Bilirubin 0.3 mg/dL (0.2-1.0) 11/23/18 06:00 AST 12 U/L (15-37) L 11/23/18 06:00 ALT 37 U/L (12-78) 11/23/18 06:00 Alkaline Phosphatase 70 U/L (46-116) 11/23/18 06:00 Troponin I < 0.02 ng/mL (0.00-0.06) 11/22/18 23:00 NT-Pro-B Natriuret Pep 504 pg/mL (-299) H 11/22/18 14:35 Total Protein 5.6 g/dL (6.4-8.2) L 11/23/18 06:00 Albumin 1.7 g/dL (3.4-5.0) L 11/23/18 06:00 Vitamin B12 1162 pg/mL (193-986) H 11/24/18 06:25 Folate 17.8 ng/mL (8.6-20.0) 11/24/18 06:25 TSH 0.79 uIU/mL (0.358-3.74) 11/22/18 17:31 Vancomycin Trough 19.9 ug/mL (10.0-20.0) 11/25/18 11:30 Legionella Source (see note) 11/23/18 14:35 Legionella Reprt Status (see note) 11/23/18 14:35 Legionella Final Result (see note) 11/23/18 14:35 Ur Strep pneumoniae Ag Negative (Negative) 11/23/18 14:35
--- NOTE | 2018-11-25 22:05 | OT.INNT ---
Date of service: 11/25/18 Time of Service: 22:06 Occupational Therapy Notes 11/25/18 OT attempted to see pt 2x this morning. Pt was unable to work with OT each time. OT will touch base with pt tomorrow morning. Kenyetta Miller OTR/[facility]
[2018-11-25] MEDS: traZODone 50 MG TAB PO (22:21)
[2018-11-26] VITALS (14 sets, daily range): BP systolic 113–129; BP diastolic 62–78; PULSE 78–122; RESP 1–24; TEMP 36.4–37; O2SAT 93–98
[2018-11-26] MEDS: Albuterol/Ipratropium 3 ML UPD VIAL UPD ×4 (00:43→18:12)
[2018-11-26] MEDS: VANCOMYCIN 750 MG in Normal Saline 250 ML 166.667 MG IV (01:18)
[2018-11-26] MEDS: Normal Saline Flush 10 ML SYR IVP ×4 (01:18→18:08)
[2018-11-26] MEDS: Levothyroxine 75 MCG TAB PO (06:47)
[2018-11-26] MEDS: CEFEPIME 2 GM in Normal Saline 100 ML IVPB ×2 (06:48→18:08)
[2018-11-26] MEDS: methylPREDNISolone SUCC 40 MG VIAL IVP (06:48)
[2018-11-26 07:32] LABS: Abs Immature Grans 0.37 k/cumm (0.0-0.09); HCT 27.4 % (36.0-46.0); HGB 8.7 g/dL (12.0-15.5); Mean Corp. HGB Concentration 31.8 g/dL (32.0-36.0); Mean Corpuscular Hemoglobin 30.9 pg (27.0-33.0); Mean Corpuscular Volume 97.2 fL (80-95); Mean Platelet Volume 10.5 fL (8.0-11.0); Platelet Count 419 x1000/uL (130-400); RBC 2.82 m/cumm (4.00-5.20); RBC Distribution Width 15.2 % (11.7-14.6); White Blood Cell Count 13.81 k/cumm (4.4-10.8)
[2018-11-26 07:49] LABS: Anion Gap 8.3 mmol/L (3-11); BUN 26 mg/dL (7-18); CO2 23.7 mmol/L (21.0-32.0); Calcium 8.5 mg/dL (8.5-10.1); Chloride 108 mmol/L (98-107); Estimated GFR 54.66 (mL/min/1.73m2); Glucose 104 mg/dL (70-100); Magnesium 1.9 mg/dL (1.8-2.4); Potassium 3.8 mmol/L (3.5-5.1); Sodium 140 mmol/L (136-145)
[2018-11-26] MEDS: Budesonide/Formoterol 160/4.5 6 GM 60 PUFF INH IH ×2 (08:17→19:53)
[2018-11-26 08:22] LABS: Absolute Neutrophil Count 10.63 k/cumm (1.2-6.7)
[2018-11-26 08:23] LABS: Anisocytosis 1+; Basophilic Stippling Present; Diff Comment Manual Differential; Poikilocytes 1+; Polychromasia Present
[2018-11-26] MEDS: Pantoprazole 40 MG TABCR PO (09:05)
[2018-11-26] MEDS: busPIRone 5 MG TAB 10 MG PO (09:05)
[2018-11-26] MEDS: Benzonatate 200 MG CAP PO ×3 (09:06→19:54)
[2018-11-26] MEDS: guaiFENesin 600 MG TABCR PO ×2 (09:06→19:54)
--- NOTE | 2018-11-26 10:32 | OT.INTREAT ---
Date of service: 11/26/18 Time of Service: 08:10 Occupational Therapy Notes Occupational Therapy Inpatient Treatment Note Date: 11/26/18 PRECAUTIONS: Fall, Standard SUBJECTIVE: Pt had just finished working with [employer] OV[employer] TENDER when OT arrived. She was anxious today stating that there was too much going on in her room. Once her room had less people she states that she was ready to work with OT. OBJECTIVE: PAIN:no c/o pain FUNCTIONAL MOBILITY Sit-stand: S, FWW Stand-sit: S, FWW BATHING: Sitting in chair with max (A) set up Upper Body: (I) UE, abdomen and face, max (A) back Lower Body: (I) conner area, (B) LE DRESSING: Sitting in chair Upper Extremity: (I) donning and doffing hospital gown Lower Extremity: (I) donning and doffing (B) socks with min vc GROOMING: (I) brushing hair in sitting position TOILETING: Device: Toilet Assist: (I) EATING: (I) sitting in chair ASSESSMENT/PLAN: Pt was receptive to education and training in energy conservation techniques. She does demonstrate self learned techniques throughout ADLs. During ADLs OT educated pt on benefits on energy conservation, pt did require min to mod vc throughout for techniques but was able to perform with good technique. Pt is functionally able to perform ADLs in sitting but presents with decreased functional activity tolerance for standing ADLs at this time. TREATMENT CODES/TIME: [id number], 40 minutes (08:10) KEO Reid/[facility]
--- NOTE | 2018-11-26 10:40 | OTTR_ITS ---
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 She was anxious today stating that there was too much going on in her room. Once her room had less people she states that she was ready to work with OT. OBJECTIVE: PAIN:no c/o pain FUNCTIONAL MOBILITY Sit-stand: S, FWW Stand-sit: S, FWW BATHING: Sitting in chair with max (A) set up Upper Body: (I) UE, abdomen and face, max (A) back Lower Body: (I) conner area, (B) LE DRESSING: Sitting in chair Upper Extremity: (I) donning and doffing hospital gown Lower Extremity: (I) donning and doffing (B) socks with min vc GROOMING: (I) brushing hair in sitting position TOILETING: Device: Toilet Assist: (I) EATING: (I) sitting in chair ASSESSMENT/PLAN: Pt was receptive to education and training in energy conservation techniques. She does demonstrate self learned techniques throughout ADLs. During ADLs OT educated pt on benefits on energy conservation, pt did require min to mod vc throughout for techniques but was able to perform with good technique. Pt is functionally able to perform ADLs in sitting but presents with decreased functional activity tolerance for standing ADLs at this time. TREATMENT CODES/TIME: [id number], 40 minutes (08:10) [facility]
[2018-11-26] MEDS: Enoxaparin 40 MG/0.4 ML SYR SC (12:27)
--- NOTE | 2018-11-26 12:31 | PT.INTREAT ---
Date of service: 11/26/18 Time of Service: 12:32 PT Notes Inpatient Physical Therapy Treatment Note [facility] Date: 11/26/2018 PRECAUTIONS: Fall SUBJECTIVE: Lisbeth states that she is feeling a little better today, and is excited that she may go home tomorrow. OBJECTIVE: PAIN: No complains of pain BED MOBILITY/TRANSFERS Sit-stand: S Stand-sit: S GAIT Assistive Device: FWW Weight bearing: Full Assist: S Distance: 60' + 80' Deviation: Standing rest x1 due to SOB THEREX: Patient completed several lower extremity strengthening exercises in a standing position, including heel raises and timed marching in place. She also completed functional nyj-ci-ecqgs exercises, as per flow sheet. Patient continues to require significant rest periods between exercises due to SOB. VITALS: SaO2: 92-95% on RA t/o session ASSESSMENT: Patient tolerated session with complaints of SOB with activity, requiring standing rest during gait training and seated rests between exercises due to SOB. Patient will benefit from continued gait training at as well as strengthening for improved activity tolerance and cardiovascular endurance. PLAN: Continue with PT's POC TREATMENT CODE/TIME: Session 1: 30 minutes; [id number], [id number]
--- NOTE | 2018-11-26 12:41 | PTTR_ITS ---
Date of service: 11/26/18 Time of Service: 12:32 PT Notes Inpatient Physical Therapy Treatment Note [facility] Date: 11/26/2018 PRECAUTIONS: Fall SUBJECTIVE: Lisbeth states that she is feeling a little better today, and is excited that she may go home tomorrow. OBJECTIVE: PAIN: No complains of pain BED MOBILITY/TRANSFERS Sit-stand: S Stand-sit: S GAIT Assistive Device: FWW Weight bearing: Full Assist: S Distance: 60' + 80' Deviation: Standing rest x1 due to SOB THEREX: Patient completed several lower extremity strengthening exercises in a standing position, including heel raises and timed marching in place. She also completed functional pyq-yw-urocz exercises, as per flow sheet. Patient continues to require significant rest periods between exercises due to SOB. VITALS: SaO2: 92-95% on RA t/o session ASSESSMENT: Patient tolerated session with complaints of SOB with activity, requiring standing rest during gait training and seated rests between exercises due to SOB. Patient will benefit from continued gait training at as well as strengthening for improved activity tolerance and cardiovascular endurance. PLAN: Continue with PT's POC TREATMENT CODE/TIME: Session 1: 30 minutes; [id number], [id number]
[2018-11-26] MEDS: VANCOMYCIN 750 MG in Normal Saline 250 ML 167 MG IV (14:18)
--- NOTE | 2018-11-26 15:34 | PT.INTREAT ---
Date of service: 11/26/18 Time of Service: 15:35 PT Notes Inpatient Physical Therapy Treatment Note [facility] Date: 11/26/2018 PRECAUTIONS: Fall SUBJECTIVE: Lisbeth reports that she has walked several times throughout the course of the day. She feels as though activity tolerance is improving. OBJECTIVE: PAIN: No complains of pain BED MOBILITY/TRANSFERS Sit-stand: S Stand-sit: S GAIT Assistive Device: FWW Weight bearing: Full Assist: S Distance: 110' x2 Deviation: Standing rest x1 due to SOB THEREX: Patient completed several strengthening exercises in a standing position, including timed marching in place as well as bilateral shoulder flexion. She also completed functional fwe-ys-gsalo exercises, as per flow sheet. Patient continues to require rest periods between exercises due to SOB, although rest duration time required has decreased. VITALS: SaO2: 92-95% on RA t/o session ASSESSMENT: Patient tolerated session with complaints of SOB with activity, requiring standing rest during gait training and seated rests between exercises due to SOB. Patient will benefit from continued gait training at as well as strengthening for improved activity tolerance and cardiovascular endurance. PLAN: Continue with PT's POC TREATMENT CODE/TIME: Session 1: 30 minutes; [id number], [id number] Session 2: 30 minutes; 00906, 12553
--- NOTE | 2018-11-26 15:38 | PTTR_ITS ---
Date of service: 11/26/18 Time of Service: 15:35 PT Notes Inpatient Physical Therapy Treatment Note [facility] Date: 11/26/2018 PRECAUTIONS: Fall SUBJECTIVE: Lisbeth reports that she has walked several times throughout the course of the day. She feels as though activity tolerance is improving. OBJECTIVE: PAIN: No complains of pain BED MOBILITY/TRANSFERS Sit-stand: S Stand-sit: S GAIT Assistive Device: FWW Weight bearing: Full Assist: S Distance: 110' x2 Deviation: Standing rest x1 due to SOB THEREX: Patient completed several strengthening exercises in a standing position, including timed marching in place as well as bilateral shoulder flexion. She also completed functional hcl-iv-fschc exercises, as per flow sheet. Patient continues to require rest periods between exercises due to SOB, although rest duration time required has decreased. VITALS: SaO2: 92-95% on RA t/o session ASSESSMENT: Patient tolerated session with complaints of SOB with activity, requiring standing rest during gait training and seated rests between exercises due to SOB. Patient will benefit from continued gait training at as well as strengthening for improved activity tolerance and cardiovascular endurance. PLAN: Continue with PT's POC TREATMENT CODE/TIME: Session 1: 30 minutes; [id number], [id number] Session 2: 30 minutes; [id number], [id number]
--- NOTE | 2018-11-26 18:30 | PDOC.CMPRO ---
- If Service Date Differs Date of service: 11/26/18 Time of Service: 18:30 Care Management Progress Note S/O Lisbeth is sitting up in the room in her chair she is alert and engaged during assessment. Lisbeth's spouse is present and particpates in the discharge planning. Lisbeth wants to follow up with office however the providers are changing at the [place] office. CM attempted contacted to set up a follow up appointment and left a voicemail. CM to follow up again in the morning to schedule. Lisbeth would like to have home health services for PT and OT. She feels she will need some help with showering, safety check and nursing for wound management and early identification of symptoms to prevent readmission. CM will fax referral to home health services. A-73 yo woman admitted with pneumonia after recent hospitalization and intubation. She was discharged about a week ago from an acute facility in [place]. P-Lisbeth remains inpatient anticipate she will be discharged on with new home health services including nursing for wound management and PT/OT. She will attend out pt pulmonary rehab through [place]. CM attempting to obtain an appointment prior to January with pulmonary provider. She will also need to follow up with primary care r/t hospital discharge.
--- NOTE | 2018-11-26 18:38 | CMPROGNOTE_ITS ---
- If Service Date Differs Date of service: 11/26/18 Time of Service: 18:30 Care Management Progress Note S/O Lisbeth is sitting up in the room in her chair she is alert and engaged during assessment. Lisbeth's spouse is present and particpates in the discharge planning. Lisbeth wants to follow up with office however the providers are changing at the [place] office. CM attempted contacted to set up a follow up appointment and left a voicemail. CM to follow up again in the morning to maude perrin. Lisbeth would like to have home health services for PT and OT. She feels she will need some help with showering, safety check and nursing for wound management and early identification of symptoms to prevent readmission. CM will fax referral to home health services. A-73 yo woman admitted with pneumonia after recent hospitalization and intubation. She was discharged about a week ago from an acute facility in [place]. P-Lisbeth remains inpatient anticipate she will be discharged on with new home health services including nursing for wound management and PT/OT. She will attend out pt pulmonary rehab through [place]. CM attempting to obtain an appointment prior to January with pulmonary provider. She will also need to follow up with primary care r/t hospital discharge.
[2018-11-26] MEDS: predniSONE 20 MG TAB 40 MG PO (19:54)
--- NOTE | 2018-11-26 20:14 | W.PM.PROGNOT ---
Date of Service Date of service: 11/26/18 Time of Service: 20:15 Assessment and Plan (1) HCAP (healthcare-associated pneumonia): Current visit: Yes Status: Acute Present on admission, in fact, possibly VAP. Improved. Continue empiric vancomycin, cefepime and levofloxacin (Day 4) Blood cx show NGTD. Sputum cx with normal salena WBC improved. On room air. Taper steroids. Likely discharge home tomorrow. (2) COPD exacerbation: Current visit: Yes Status: Acute As above Continue vancomycin, cefepime/levofloxacin (Day 4). Continue symbicort, scheduled and prn nebs, antitussives, steroids (on PPI ppx). (3) Hypoxia: Current visit: Yes Status: Resolved Not requiring O2 at rest Monitor. (4) Adrenal insufficiency: Current visit: Yes Status: Acute While it is possible that the patient's hypotension on presentation had to do with her impending shock/sepsis, she was also on a lengthy course of steroids as outpatient and did get acutely ill, so acute adrenal insufficiency is also very possible. Continue steroid taper. The patient will need a protracted steroid taper on discharge. (5) Macrocytic anemia: Current visit: Yes Status: Acute Acute on chronic and likely also dilutional. Hemoccult negative, H/H is trending down, however. Dilutional + from blood draws. No evidence of iron, B12 or folic acid deficiency. No evidence of active bleeding. (6) Discharge planning issues: Current visit: Yes Status: Acute DNR/DNI Discharge home tomorrow with home health RN/PT/OT. (7) DVT prophylaxis: Current visit: Yes Status: Acute Continue lovenox [place] Subjective Interval history since last seen: Ms Taylor states she is doing much better, but would feel more comfortable going home tomorrow. Denies dizziness, chest pain, complains of mostly GONZALES, denies nausea/vomiting. Patient would like to have home health nursing, if possible Exam Narrative Exam Narrative: General: Very pleasant frail female, sitting up in a chair, A&Ox3, speaking in full sentences, looks even better than yesterday HEENT: EOMI, MMM Heart: RRR, no m/r/g Lungs: improved B air entry; no wheezing GI: abdomen is soft, nontender, nondistended Extremities: no e/c/c BLE's, 2+ pedal pulses B Objective Objective Clinical Data: Abnormal lab results 11/26/18 11/26/18 Range/Units 06:50 06:50 WBC 13.81 H (4.4-10.8) k/cumm RBC 2.82 L (4.00-5.20) m/cumm Hgb 8.7 L (12.0-15.5) g/dL Hct 27.4 L (36.0-46.0) % MCV 97.2 H (80-95) fL MCHC 31.8 L (32.0-36.0) g/dL RDW 15.2 H (11.7-14.6) % Plt Count 419 H (130-400) x1000/uL Absolute Neutrophils 10.63 H (1.2-6.7) k/cumm Absolute Monocytes 1.10 H (0.11-0.7) k/cumm Chloride 108 H (98-107) mmol/L BUN 26 H (7-18) mg/dL Glucose 104 H (70-100) mg/dL Vital Signs Temperature 37.0 C 11/26/18 20:05 Temperature Source Tympanic 11/26/18 20:05 Pulse 99 H 11/26/18 20:05 Pulse Rhythm Regular 11/26/18 15:30 Pulse 89 11/24/18 08:01 Respiratory Rate 19 11/26/18 20:05 Respiratory Effort 11/26/18 15:30 Respiratory Depth Deep 11/26/18 15:30 Respiratory Pattern Normal 11/26/18 15:30 Blood Pressure 113/62 11/26/18 20:05 Blood Pressure Mean 79 11/24/18 08:00 Blood Pressure Position Supine 11/24/18 08:30 Pulse Oximetry 93 L 11/26/18 20:05 Oxygen Delivery Method Room Air 11/26/18 20:05 Oxygen Flow Rate 0 11/26/18 20:05 Pain Level 2 11/24/18 21:15 Intake & Output 11/25/18 11/26/18 11/26/18 23:59 11:59 23:59 Intake Total 851.5 / 1791.5 705 / 1318 613 / 1318 Output Total 500 / 1150 550 / 1000 450 / 1000 Balance 351.5 / 641.5 155 / 318 163 / 318 Weight 45.3 kg Intake: IV 371.5 / 951.5 455 / 828 373 / 828 Oral 480 / 840 250 / 490 240 / 490 Output: Urine 500 / 1150 550 / 1000 450 / 1000 Other: Urine Color Yellow Yellow Yellow Urine Appearance Clear Clear Clear Urine Odor None Comment VOID X 1 Stool Occult Blood Negative Negative Stool Size Moderate Small Stool Characteristics Soft Soft Formed Brown Voiding Methods Toilet Toilet Toilet Laboratory Results WBC 13.81 k/cumm (4.4-10.8) H 11/26/18 06:50 RBC 2.82 m/cumm (4.00-5.20) L 11/26/18 06:50 Hgb 8.7 g/dL (12.0-15.5) L 11/26/18 06:50 Hct 27.4 % (36.0-46.0) L 11/26/18 06:50 MCV 97.2 fL (80-95) H 11/26/18 06:50 MCH 30.9 pg (27.0-33.0) 11/26/18 06:50 MCHC 31.8 g/dL (32.0-36.0) L 11/26/18 06:50 RDW 15.2 % (11.7-14.6) H 11/26/18 06:50 Plt Count 419 x1000/uL (130-400) H 11/26/18 06:50 MPV 10.5 fL (8.0-11.0) 11/26/18 06:50 Immature Gran % See Differential 11/26/18 06:50 Neutrophils % 75.0 11/26/18 06:50 Band Neutrophils % 2.0 % 11/26/18 06:50 Lymphocytes % 13.0 11/26/18 06:50 Monocytes % 8.0 11/26/18 06:50 Eosinophils % 0.0 11/26/18 06:50 Basophils % 0.0 11/26/18 06:50 Metamyelocytes % 2.0 % 11/26/18 06:50 Absolute Neutrophils 10.63 k/cumm (1.2-6.7) H 11/26/18 06:50 Absolute Lymphocytes 1.80 k/cumm (1.2-3.4) 11/26/18 06:50 Absolute Monocytes 1.10 k/cumm (0.11-0.7) H 11/26/18 06:50 Absolute Eosinophils 0.00 k/cumm (0.0-0.7) 11/26/18 06:50 Absolute Basophils 0.00 k/cumm (0.0-0.2) 11/26/18 06:50 Differential Comment Manual differential 11/26/18 06:50 RBC Morphology See below 11/26/18 06:50 Polychromasia Present 11/26/18 06:50 Hypochromasia 1+ 11/24/18 06:25 Poikilocytosis 1+ 11/26/18 06:50 Basophilic Stippling Present 11/26/18 06:50 Anisocytosis 1+ 11/26/18 06:50 Stomatocytes 3+ 11/22/18 14:35 D-Dimer 1946 ng/mlFEU (<500) H 11/22/18 14:35 Sample Site Left radial 11/23/18 09:30 pCO2 31 mmHg (34-47) L 11/23/18 09:30 pO2 61 mmHg (83-108) L 11/23/18 09:30 O2 Saturation 93 % (94-98) L 11/23/18 09:30 ABG pH 7.45 (7.35-7.45) 11/23/18 09:30 ABG HCO3 22 mmol/L (22-28) 11/23/18 09:30 ABG Total CO2 21 mmol/L (22-29) L 11/23/18 09:30 ABG Base Excess -2.3 mmol/L (-3-3) 11/23/18 09:30 Oxygen Liter Flow R/a L 11/23/18 09:30 Sodium 140 mmol/L (136-145) 11/26/18 06:50 Potassium 3.8 mmol/L (3.5-5.1) 11/26/18 06:50 Chloride 108 mmol/L (98-107) H 11/26/18 06:50 Carbon Dioxide 23.7 mmol/L (21.0-32.0) 11/26/18 06:50 Anion Gap 8.3 mmol/L (3-11) 11/26/18 06:50 BUN 26 mg/dL (7-18) H 11/26/18 06:50 Creatinine 1.00 mg/dL (0.55-1.02) 11/26/18 06:50 Estimated GFR/1.73 m2 54.66 (mL/min/1.73m2) 11/26/18 06:50 Glucose 104 mg/dL (70-100) H 11/26/18 06:50 Lactate 0.9 mmol/l (0.6-1.4) 11/22/18 17:31 Calcium 8.5 mg/dL (8.5-10.1) 11/26/18 06:50 Magnesium 1.9 mg/dL (1.8-2.4) 11/26/18 06:50 Iron 58 ug/dL (50-175) 11/24/18 07:00 TIBC 149 ug/dL (250-450) L 11/24/18 07:00 Transferrin % Sat 39 % (15-50) 11/24/18 07:00 Ferritin 1754 ng/mL (8-388) H 11/24/18 06:25 Total Bilirubin 0.3 mg/dL (0.2-1.0) 11/23/18 06:00 AST 12 U/L (15-37) L 11/23/18 06:00 ALT 37 U/L (12-78) 11/23/18 06:00 Alkaline Phosphatase 70 U/L (46-116) 11/23/18 06:00 Troponin I < 0.02 ng/mL (0.00-0.06) 11/22/18 23:00 NT-Pro-B Natriuret Pep 504 pg/mL (-299) H 11/22/18 14:35 Total Protein 5.6 g/dL (6.4-8.2) L 11/23/18 06:00 Albumin 1.7 g/dL (3.4-5.0) L 11/23/18 06:00 Vitamin B12 1162 pg/mL (193-986) H 11/24/18 06:25 Folate 17.8 ng/mL (8.6-20.0) 11/24/18 06:25 TSH 0.79 uIU/mL (0.358-3.74) 11/22/18 17:31 Vancomycin Trough 19.9 ug/mL (10.0-20.0) 11/25/18 11:30 Legionella Source (see note) 11/23/18 14:35 Legionella Reprt Status (see note) 11/23/18 14:35 Legionella Final Result (see note) 11/23/18 14:35 Ur Strep pneumoniae Ag Negative (Negative) 11/23/18 14:35
[2018-11-26] MEDS: traZODone 50 MG TAB PO (21:34)
[2018-11-27] VITALS (8 sets, daily range): BP systolic 119–134; BP diastolic 71–78; PULSE 85–122; RESP 1–28; TEMP 36.1–37.2; O2SAT 92–98
[2018-11-27] MEDS: Albuterol/Ipratropium 3 ML UPD VIAL UPD ×2 (00:40→06:52)
[2018-11-27] MEDS: Normal Saline 500 ML 30 ML IV (02:05)
[2018-11-27] MEDS: levoFLOXacin 750 MG/150 ML BAG 100 MG IVPB (02:06)
[2018-11-27] MEDS: Normal Saline Flush 10 ML SYR IVP (04:09)
[2018-11-27] MEDS: VANCOMYCIN 750 MG in Normal Saline 250 ML 167 MG IV (04:12)
[2018-11-27] MEDS: Levothyroxine 75 MCG TAB PO (06:51)
[2018-11-27] MEDS: CEFEPIME 2 GM in Normal Saline 100 ML IVPB (06:51)
[2018-11-27] MEDS: Benzonatate 200 MG CAP PO ×2 (07:52→13:37)
[2018-11-27] MEDS: predniSONE 20 MG TAB 40 MG PO (07:52)
[2018-11-27] MEDS: guaiFENesin 600 MG TABCR PO (07:52)
[2018-11-27] MEDS: Pantoprazole 40 MG TABCR PO (07:52)
--- NOTE | 2018-11-27 09:55 | INDS_ITS ---
Date of service: 11/27/18 Time of Service: 09:15 PT Notes Date: 11/27/2018 Referring Doctor: Sindhu Lomas MD PT Orders: PT CONSULT: Eval/treat Precautions: Fall. Standard., Needs frequent rests. Treatment Dates: 11/24/18 - 11/27/18 Patient Profile/Admitting Diagnosis: Patient is a 73-year-old who was sent to the ED for increasing shortness of breath. Patient was diagnosed with healthcare-acquired lower lobe pneumonia and right lower lobe infiltration, COPD exacerbation, and hypoxia. She was recently hospitalized in October 2018 for COPD exacerbation with hypercapnia and intubation. She's participated in PT intervention 1-2x/day for 4 days, with a total of 6 PT sessions. PMHX: COPD (chronic obstructive pulmonary disease) Diverticulosis History of tobacco abuse Hypothyroid Osteopenia Social History/Home Situation: Patient lives with [place] in [place], [place] a 2 floor house. She has everything she needs on the main floor and does not need to negotiate steps to the second floor of the house. Patient has been participating in a pulmonary rehabilitation program twice a week at [facility] for 1.5 years now. She states that she has front wheeled walker that she uses for outdoor ambulation. Equipment Owned/DME: [employer] Subjective: Lisbeth states that she is hopeful she can return home today.She states that her breathing feels better, although she feels deconditioned versus her usual state; she relates this to her road trip prior to admission, where she was very sedentary. Objective: General Observation: No lines. No supplemental O2. Mental Status: Alert and oriented x3 Pain: denies ROM: ROM: Right Upper Extremity: Shoulder Flexion WFL. Shoulder abduction WFL. Elbow flexion WFL. Wrist flexion WFL. Functional opening and closing of hand WFL. Left Upper Extremity: Shoulder Flexion WFL. Shoulder abduction WFL. Elbow flexion WFL. Wrist flexion WFL. Functional opening and closing of hand WFL. Right Lower Extremity: Hip flexion WFL. Hip abduction WFL. Knee flexion WFL. Ankle dorsiflexion WFL. Ankle plantarflexion WFL. Left Lower Extremity: Hip flexion WFL. Hip abduction WFL. Knee flexion WFL. Ankle dorsiflexion WFL. Ankle plantarflexion WFL. Strength: STRENGTH: Right Upper Extremity: Shoulder flexors 5/5. Shoulder abductors 5/5. Elbow flexors 5/5. Elbow extensors 5/5. [employer] strong. Left Upper Extremity: Shoulder flexors 5/5. Shoulder abductors 5/5. Elbow flexors 5/5. Elbow extensors 5/5. [employer] strong. Right Lower Extremity: Hip flexors 4 /5. Hip abductors 4-/5. Knee flexors 4/5. Knee extensors 4+/5. Ankle dorsiflexors 5/5. Ankle plantarflexors 4-/5. Right Lower Extremity:Hip flexors 4/5. Hip abductors 4-/5. Knee flexors 4/5. Kn ee extensors 4+/5. Ankle dorsiflexors 5/5. Ankle plantarflexors 4-/5. Sensation: Intact as to pain and pressure to BLE. BED MOBILITY LEVELS/TRANSFERS Sit to stand : independent Stand to sit: independent Bed to chair: independent with FWW Chair to bed : independent with FWW Gait: Patient tolerated 100 feet x2, with standing rest period due to GONZALES. She utilizes FWW and ambulates independently on RA, with oxygen saturation ranging from 90% - 94%, HR 105-130. Balance: Static Sitting: Normal Dynamic Sitting: Normal Static Standing: Good Dynamic Standing: Fair Special Tests: Mobility Limitations Standardized Measure [facility] 6 clicks Basic Mobility Inpatient Short Form: Raw Score: 23 CMS Score: 11% deficit Treatment: Today's session consisted of reevaluation, followed by gait and transfer training, and instruction in a therapeutic exercise program, as noted on flowsheet. Patient declines stair management, reporting that she has no intention of managing stairs at home. Assessment: Assessment: Patient is a 73 year old female referred to physical therapy services with the diagnosis of progression of healthcare acquired pneumonia, COPD exacerbation, and hypoxia. Patient has demonstrated significant improvements in independence and activity tolerance, and at this point all of her rehab goals have been met. She will benefit from home health PT upon return home for continued gains in activity tolerance. At this point she is appropriate for discharge from PT and on acute care setting. Goals: Goals X1 week 1. Supine-Sit independent (MET) 2. Sit-Supine independent(MET) 3. Sit-Stand independent(MET) 4. Stand-Sit independent(MET) 5. Bed-Chair independent(MET) 6. Chair-Bed independent(MET) 7. Independent gait on level surface with use of least restrictive device for at least 100 feet oxygen supplementation and without report of lateral chest/rib pain nor dyspnea (MET) 8. Independent stair negotiation while holding onto bilateral rails for at least 5 steps without patient and report of pain nor dyspnea (PATIENT DECLINES STAIR MANAGEMENT) 9. Independent with home exercise program (MET) 10. Good static and dynamic standing balance/tolerance(Progressing toward, with patient continuing to require UE support during dynamic standing activities) Plan of Care/Treatment Plan: D/C from PT services in acute care setting. DISCHARGE RECOMMENDATIONS: Patient will highly benefit from home health physical therapy maximize activity tolerance, assess home safety, and facilitate caregiver education/training. No equipment needs at this time TREATMENT CODE/TIME:9:15-9:40 ([id number], [id number]) Vanita Pro, PT, DPT [facility]
[2018-11-27] MEDS: Budesonide/Formoterol 160/4.5 6 GM 60 PUFF INH IH (10:38)
--- NOTE | 2018-11-27 11:44 | OT.INDS ---
Date of service: 11/27/18 Time of Service: 08:50 Occupational Therapy Notes Occupational Therapy Inpatient Discharge Summary Date: 11/27/18 Dates of Service: 11/24/18-11/27/18 Referring Doctor:Sindhu Lomas MD OT Orders: Eval and Treat Precautions: Fall, Standard PATIENT PROFILE/ADMITTING DIAGNOSIS: Pt is a 73 year old female who was admitted through the ER on 11/22/18 after a recent hospitalization in [place] which she was discharged 1 week ago. Upon return to [place] pt was admitted for HCAP, COPD with an exacerbation and is being treated in the ICU at this time with possible transition to Med Surg later today. Past Medical History: Medical History COPD (chronic obstructive pulmonary disease) Diverticulosis History of tobacco abuse Hypothyroid Osteopenia Surgical History Colonoscopy - MAC (06/22/16) Social History/Home Situation: Pt lives in a private home with her . She reports that she is mostly (I) with ADLs however her does attempt to (A) her when needed. She states that she has a walk in shower. She is very fearful of this and feels unsure about her bathing routine. She has a shower bench to sit on but it still makes her nervous. Her (A) with dressing and cooking. She has a regular toilet which she is able to perform (I). She reports that most of her (A) at this time comes from her when it is needed. She does not currently perform community ambulation (I) and relies on her . Pt has 2 steps to get into her home which she reports are large enough to place the walker on the step. Equipment owned/DME: Shower bench, grab bars, FWW SUBJECTIVE: Pt was sitting in chair when OT arrived. She was agreeable to OT session and states that the plan is for her to go home today. 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 Pt was seen for 3 skilled OT services. She has demonstrated increased (I) in ADL/IADL routines. She still requires rest breaks during standing ADLs but is functionally (I) with min vc for breathing techniques. OT recommends that pt returns home with HH services and a commode to increase pts safety for toileting routine during the nighttime due to decreased breathing and functional activity tolerance. GOALS- MET 1. Transfers Min (A) FWW 2. Dressing (I) sitting in chair 3. Bathing (I) sitting in chair 4. Toileting (I) on toilet 5. Eating (I) 6. Teeth and Hair (I) standing at sink with FWW PLAN OF CARE/TREATMENT PLAN: Discharge pt from skilled OT services. DISCHARGE RECOMMENDATIONS Pt was not receptive to SNF. However OT recommends SNF vs home with home health OT/PT services to increase pts (I) and safety in home setting. OT recommends that pt returns home with HH services and a commode to increase pts safety for toileting routine during the nighttime due to decreased breathing and functional activity tolerance. TREATMENT TIME/MINUTES/CODES [id number], 27 minutes (08:50) [facility]
--- NOTE | 2018-11-27 11:52 | OTDS_ITS ---
Date of service: 11/27/18 Time of Service: 08:50 Occupational Therapy Notes Occupational Therapy Inpatient Discharge Summary Date: 11/27/18 Dates of Service: 11/24/18-11/27/18 Referring Doctor:Sindhu Lomas MD OT Orders: Eval and Treat Precautions: Fall, Standard PATIENT PROFILE/ADMITTING DIAGNOSIS: Pt is a 73 year old female who was admitted through the ER on 11/22/18 after a recent hospitalization in [place] which she was discharged 1 week ago. Upon return to [place] pt was admitted for HCAP, COPD with an exacerbation and is being treated in the ICU at this time with possible transition to Med Surg later today. Past Medical History: Medical History COPD (chronic obstructive pulmonary disease) Diverticulosis History of tobacco abuse Hypothyroid Osteopenia Surgical History Colonoscopy - MAC (06/22/16) Social History/Home Situation: Pt lives in a private home with her . She reports that she is mostly (I) with ADLs however her does attempt to (A) her when needed. She states that she has a walk in shower. She is very fearful of this and feels unsure about her bathing routine. She has a shower bench to sit on but it still makes her nervous. Her (A) with dressing and cooking. She has a regular toilet which she is able to perform (I). She reports that most of her (A) at this time comes from her when it is needed. She does not currently perform community ambulation (I) and relies on her . Pt has 2 steps to get into her home which she reports are large enough to place the walker on the step. Equipment owned/DME: Shower bench, grab bars, FWW SUBJECTIVE: Pt was sitting in chair when OT arrived. She was agreeable to OT session and states that the plan is for her to go home today. OBJECTIVE: General Observation: Pleasant and answers questions appropriately Mental Status: A&Ox3 ROM: RUE Shoulder flexion WNL, elbow WNL, hand/digits WNL L UE Shoulder flexion unable to lift as this is sore to pt, elbow WNL, hand/digits WNL STRENGTH: RUE 4-/5 throughout globally LUE shoulder flexion 4-/5, elbow 4/5, skate maker 4/5 FUNCTIONAL MOBILITY/ADLS: Sit-stand (I) Stand to sit (I) Chair-sink (I) sink-chair (I) Toileting-on toilet (I) Grooming- Brushing teeth with FWW, (S) (I) BALANCE: Static sitting Good Dynamic Sitting Good Static Standing NT Dynamic Standing NT ASSESSMENT: Patient is a 73-year-old female referred to occupational therapy services with diagnosis of HCAP, COPD exacerbation. Pt was seen for 3 skilled OT services. She has demonstrated increased (I) in ADL/IADL routines. She still requires rest breaks during standing ADLs but is functionally (I) with min vc for breathing techniques. OT recommends that pt returns home with HH services and a commode to increase pts safety for toileting routine during the nighttime due to decreased breathing and functional activity tolerance. GOALS- MET 1. Transfers Min (A) FWW 2. Dressing (I) sitting in chair 3. Bathing (I) sitting in chair 4. Toileting (I) on toilet 5. Eating (I) 6. Teeth and Hair (I) standing at sink with FWW PLAN OF CARE/TREATMENT PLAN: Discharge pt from skilled OT services. DISCHARGE RECOMMENDATIONS Pt was not receptive to SNF. However OT recommends SNF vs home with home health OT/PT services to increase pts (I) and safety in home setting. OT recommends that pt returns home with HH services and a commode to increase pts safety for toileting routine during the nighttime due to decreased breathing and functional activity tolerance. TREATMENT TIME/MINUTES/CODES [id number], 27 minutes (08:50) [facility]
--- NOTE | 2018-11-27 12:20 | W.PM.DS.N ---
Date of service: 11/27/18 Time of Service: 12:20 DS: Diagnosis Discharge Diagnosis (1) HCAP (healthcare-associated pneumonia): Status: Acute (2) COPD exacerbation: Status: Acute (3) Hypoxia: Status: Resolved (4) Adrenal insufficiency: Status: Acute (5) Macrocytic anemia: Status: Acute Discharge Plan Disposition Patient Disposition: HOME Condition: Stable Discharge Details Reason For Visit: BIALTERAL PNEUMONIA,COPD EXACERBATION Admit Date/Time: 11/22/18 19:07 Admit Provider: Abel Coats Attending Provider: Abel Coats Primary Care Provider: Jude Nino Hospital Course Hospital Course: Ms Taylor is a 73 year old female with PMHx of COPD, not normally on oxygen, recent hospitalization at [facility] in [place] For acute respiratory failure due to COPD exacerbation, during which she required intubation at [facility], who was admitted to [facility] on 11/22/18 with HCAP, acute exacerbation of COPD, and acute hypoxic respiratory failure, briefly requiring CPAP. The patient was admitted to the ICU, started on broad spectrum antibiotics (cefepime, levofloxacin, vancomycin), IV steroids, nebs, and inhaled corticosteroids. She improved and was transferred out of the ICU on hospital day 2. Her culture data is negative to date. She has not required oxygen for the remainder of her hospital stay, steadily improving her exercise capacity. Her ambulatory pulse ox on the day of discharge is 94% on room air, and she is near her baseline respiratory status. She is encouraged to finish a total of 10 days of antibiotics and is being discharged home on combination of ceftin, levofloxacin, a prednisone taper. We are also setting up a nebulizer machine. 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 The patient is recommended to continue pulmonary rehab either in [place] or at [facility], whichever location she prefers. She is asked to follow up with her PCP in 1-2 weeks. She is being set up with home health nursing, PT, OT, and [facility] program through home health. Home Meds and New Rx's Prescriptions: New ipratropium-albuterol 0.5 mg-3 mg(2.5 mg base)/3 mL Solution For Nebulization 3 ml UPD Q6H PRN PRN (Reason: shortness of breath or wheezing) Qty: 180 RF: 0 benzonatate 200 mg Capsule 200 mg PO TID PRN PRN (Reason: cough) Qty: 30 RF: 0 guaifenesin [Mucinex] 600 mg Tablet Extended Release 12hr 600 mg PO BID PRN PRN (Reason: cough) Qty: 30 RF: 0 prednisone 20 mg Tablet See Rx Instructions .ROUTE .COMPLEX Qty: 16 RF: 0 pantoprazole 40 mg Tablet,Delayed Release (Dr/Ec) 40 mg PO DAILY@0730 Qty: 30 RF: 0 cefuroxime axetil 250 mg tablet 250 mg PO Q12H Qty: 10 RF: 0 levofloxacin 750 mg tablet 750 mg PO DAILY Qty: 2 RF: 0 Continued trazodone 50 MG tablet 50 mg PO HS RF: 0 levothyroxine 25 MCG tablet 75 mcg PO DAILY RF: 0 Combivent 200 PUFF aerosol 2 inh Inhalation BID RF: 0 albuterol sulfate [ProAir HFA] 200 PUFF HFA aerosol inhaler 2 inh Inhalation Q4H PRN PRNRF: 0 Chantix 0.5 MG tablet 0.5 mg PO BID Qty: 60 RF: 3 multivitamin [Daily Multiple] 1 EACH tablet 1 ea PO DAILY RF: 0 dextromethorphan-guaifenesin [Mucinex DM] 1 EACH tablet extended release 12 hr 1 ea PO DIRECTED PRNRF: 0 cholecalciferol (vitamin D3) 1,000 UNITS tablet 1,000 unit PO DAILY RF: 0 calcium carbonate-vitamin D3 1 EACH capsule 1 ea PO DAILY RF: 0 L.acidoph, paracasei,B. lactis 1 EACH capsule 1 ea PO DAILY RF: 0 Symbicort 60 PUFF HFA aerosol inhaler 2 puff Inhalation BID RF: 0 docusate calcium 240 mg Capsule 1 mg PO DAILY RF: 0 amlodipine [Norvasc] 5 mg Tablet 5 mg PO DAILY RF: 0 buspirone 10 mg Tablet 10 mg PO BID PRNRF: 0 Probiotic and Acidophilus 300-250 million cell-mg Capsule 1 cap PO DAILY RF: 0 Discontinued prednisone 20 MG tablet 20 mg PO DIRECTED RF: 0 Discharge Instructions Instructions: Bacterial Pneumonia (DC) Additional Instructions: Finish your antibiotics and steroids as prescribed. Return to the hospital with any fever, bleeding, chest pain, or shortness of breath. Follow up with your PCP in 1-2 weeks. Follow up with pulmonology ANA. Re-enroll with pulmonary rehab when ready. Do not smoke or be around people who smoke! Care Plan Goals: Home health nursing, PT/OT, and [facility] program. Stand Alone Forms: Nursing Discharge Form Referrals: Jude Nino [Primary Care Provider] - Activity:: Activity as Tolerated Equipment/Supplies:: nebulizer machine Diet:: Normal Diet Discharge Orders Discharge Orders: Discharge Order (Routine); Ordered 11/27/18 Ordered By: Sindhu Lomas Exam Narrative Exam Narrative: General: Very pleasant frail female, sitting up in a chair, A&Ox3, speaking in full sentences, looks well HEENT: EOMI, MMM Heart: RRR, no m/r/g Lungs: improved B air entry; no wheezing GI: abdomen is soft, nontender, nondistended Extremities: no e/c/c BLE's, 2+ pedal pulses B DS: Data Vitals/I&O Vitals and I&O: Vital Signs Temperature 36.1 C L 11/27/18 11:05 Temperature Source Tympanic 11/27/18 11:05 Pulse 94 H 11/27/18 11:05 Pulse Rhythm Regular 11/27/18 12:15 Pulse 89 11/24/18 08:01 Respiratory Rate 18 11/27/18 11:05 Respiratory Effort 11/27/18 12:15 Respiratory Depth Normal 11/27/18 12:15 Respiratory Pattern Normal 11/27/18 12:15 Blood Pressure 119/76 11/27/18 11:05 Blood Pressure Mean 79 11/24/18 08:00 Blood Pressure Position Supine 11/24/18 08:30 Pulse Oximetry 97 11/27/18 11:05 Oxygen Delivery Method Room Air 11/27/18 11:05 Oxygen Flow Rate 0 11/27/18 11:05 Pain Level 0 11/27/18 03:05 Comment 11/27/18 03:05 Intake & Output 11/26/18 11/27/18 11/27/18 23:59 11:59 23:59 Intake Total 853 / 1558 991.0 / 991.0 Output Total 750 / 1300 1000 / 1300 300 / 1300 Balance 103 / 258 -9.0 / -309.0 -300 / -309.0 Weight 44.8 kg Intake: IV 373 / 828 551.0 / 551.0 Oral 480 / 730 440 / 440 Output: Urine 750 / 1300 1000 / 1300 300 / 1300 Other: Urine Color Yellow Yellow Yellow Urine Appearance Clear Clear Clear Urine Odor Normal Normal Strong Stool Occult Blood Negative Stool Size Small Smear Stool Characteristics Soft Soft Brown Voiding Methods Toilet Toilet Bedside Commode Bedside Commode Completed studies during hospitalization [Text1]: CXR 11/22/18: Bibasilar infiltrates, left greater than right. CT chest 11/22/18: Bilateral lower lobe infiltrates, left greater than right. No evidence of pulmonary emboli. Labs on day of discharge: Labs from last 24 hours 11/27/18 15:00 Vancomycin Trough Pending Preliminary micro results at discharge 11/22/18 17:49 Blood Culture - Preliminary Blood NO GROWTH 96 HOURS 11/22/18 17:31 Blood Culture - Preliminary Blood NO GROWTH 96 HOURS [facility] Medical History COPD (chronic obstructive pulmonary disease) Diverticulosis History of tobacco abuse Hypothyroid Osteopenia Surgical History Colonoscopy - MAC (06/22/16) Social History Smoking/Tobacco Use Status: Former Tobacco Use Drug use: Never
--- NOTE | 2018-11-27 12:30 | DSE_ITS ---
Date of service: 11/27/18 Time of Service: 12:20 DS: Diagnosis Discharge Diagnosis (1) HCAP (healthcare-associated pneumonia): Status: Acute (2) COPD exacerbation: Status: Acute (3) Hypoxia: Status: Resolved (4) Adrenal insufficiency: Status: Acute (5) Macrocytic anemia: Status: Acute Discharge Plan Disposition Patient Disposition: HOME Condition: Stable Discharge Details Reason For Visit: BIALTERAL PNEUMONIA,COPD EXACERBATION Admit Date/Time: 11/22/18 19:07 Admit Provider: Abel Coats Attending Provider: Abel Coats Primary Care Provider: Jude Nino Hospital Course Hospital Course: Ms Taylor is a 73 year old female with PMHx of COPD, not normally on oxygen, recent hospitalization at [facility] in [place] For acute respiratory failure due to COPD exacerbation, during which she required intubation at [facility], who was admitted to [facility] on 11/22/18 with HCAP, acute exacerbation of COPD, and acute hypoxic respiratory failure, briefly requiring CPAP. The patient was admitted to the ICU, started on broad spectrum antibiotics (cefepime, levofloxacin, vancomycin), IV steroids, nebs, and inhaled corticosteroids. She improved and was transferred out of the ICU on hospital day 2. Her culture data is negative to date. She has not required oxygen for the remainder of her hospital stay, steadily improving her exercise capacity. Her ambulatory pulse ox on the day of discharge is 94% on room air, and she is near her baseline respiratory status. She is encouraged to finish a total of 10 days of antibiotics and is being discharged home on combination of ceftin, levofloxacin, a prednisone taper. We are also setting up a nebulizer machine. 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 The patient is recommended to continue pulmonary rehab either in [place] or at [facility], whichever location she prefers. She is asked to follow up with her PCP in 1-2 weeks. She is being set up with home health nursing, PT, OT, and [facility] program through home health. Home Meds and New Rx's Prescriptions: New ipratropium-albuterol 0.5 mg-3 mg(2.5 mg base)/3 mL Solution For Nebulization 3 ml UPD Q6H PRN PRN (Reason: shortness of breath or wheezing) Qty: 180 RF: 0 benzonatate 200 mg Capsule 200 mg PO TID PRN PRN (Reason: cough) Qty: 30 RF: 0 guaifenesin [Mucinex] 600 mg Tablet Extended Release 12hr 600 mg PO BID PRN PRN (Reason: cough) Qty: 30 RF: 0 prednisone 20 mg Tablet See Rx Instructions .ROUTE .COMPLEX Qty: 16 RF: 0 pantoprazole 40 mg Tablet,Delayed Release (Dr/Ec) 40 mg PO DAILY@0730 Qty: 30 RF: 0 cefuroxime axetil 250 mg tablet 250 mg PO Q12H Qty: 10 RF: 0 levofloxacin 750 mg tablet 750 mg PO DAILY Qty: 2 RF: 0 Continued trazodone 50 MG tablet 50 mg PO HS RF: 0 levothyroxine 25 MCG tablet 75 mcg PO DAILY RF: 0 Combivent 200 PUFF aerosol 2 inh Inhalation BID RF: 0 albuterol sulfate [ProAir HFA] 200 PUFF HFA aerosol inhaler 2 inh Inhalation Q4H PRN PRNRF: 0 Chantix 0.5 MG tablet 0.5 mg PO BID Qty: 60 RF: 3 multivitamin [Daily Multiple] 1 EACH tablet 1 ea PO DAILY RF: 0 dextromethorphan-guaifenesin [Mucinex DM] 1 EACH tablet extended release 12 hr 1 ea PO DIRECTED PRNRF: 0 cholecalciferol (vitamin D3) 1,000 UNITS tablet 1,000 unit PO DAILY RF: 0 calcium carbonate-vitamin D3 1 EACH capsule 1 ea PO DAILY RF: 0 L.acidoph, paracasei,B. lactis 1 EACH capsule 1 ea PO DAILY RF: 0 Symbicort 60 PUFF HFA aerosol inhaler 2 puff Inhalation BID RF: 0 docusate calcium 240 mg Capsule 1 mg PO DAILY RF: 0 amlodipine [Norvasc] 5 mg Tablet 5 mg PO DAILY RF: 0 buspirone 10 mg Tablet 10 mg PO BID PRNRF: 0 Probiotic and Acidophilus 300-250 million cell-mg Capsule 1 cap PO DAILY RF: 0 Discontinued prednisone 20 MG tablet 20 mg PO DIRECTED RF: 0 Discharge Instructions Instructions: Bacterial Pneumonia (DC) Additional Instructions: Finish your antibiotics and steroids as prescribed. Return to the hospital with any fever, bleeding, chest pain, or shortness of breath. Follow up with your PCP in 1-2 weeks. Follow up with pulmonology ANA. Re-enroll with pulmonary rehab when ready. Do not smoke or be around people who smoke! Care Plan Goals: Home health nursing, PT/OT, and [facility] program. Stand Alone Forms: Nursing Discharge Form Referrals: Jude Nino [Primary Care Provider] - Activity:: Activity as Tolerated Equipment/Supplies:: nebulizer machine Diet:: Normal Diet Discharge Orders Discharge Orders: Discharge Order (Routine); Ordered 11/27/18 Ordered By: Sindhu Lomas Exam Narrative Exam Narrative: General: Very pleasant frail female, sitting up in a chair, A&Ox3, speaking in full sentences, looks well HEENT: EOMI, MMM Heart: RRR, no m/r/g Lungs: improved B air entry; no wheezing GI: abdomen is soft, nontender, nondistended Extremities: no e/c/c BLE's, 2+ pedal pulses B DS: Data Vitals/I&O Vitals and I&O: Vital Signs Temperature 36.1 C L 11/27/18 11:05 Temperature Source Tympanic 11/27/18 11:05 Pulse 94 H 11/27/18 11:05 Pulse Rhythm Regular 11/27/18 12:15 Pulse 89 11/24/18 08:01 Respiratory Rate 18 11/27/18 11:05 Respiratory Effort 11/27/18 12:15 Respiratory Depth Normal 11/27/18 12:15 Respiratory Pattern Normal 11/27/18 12:15 Blood Pressure 119/76 11/27/18 11:05 Blood Pressure Mean 79 11/24/18 08:00 Blood Pressure Position Supine 11/24/18 08:30 Pulse Oximetry 97 11/27/18 11:05 Oxygen Delivery Method Room Air 11/27/18 11:05 Oxygen Flow Rate 0 11/27/18 11:05 Pain Level 0 11/27/18 03:05 Comment 11/27/18 03:05 Intake & Output 11/26/18 11/27/18 11/27/18 23:59 11:59 23:59 Intake Total 853 / 1558 991.0 / 991.0 Output Total 750 / 1300 1000 / 1300 300 / 1300 Balance 103 / 258 -9.0 / -309.0 -300 / -309.0 Weight 44.8 kg Intake: IV 373 / 828 551.0 / 551.0 Oral 480 / 730 440 / 440 Output: Urine 750 / 1300 1000 / 1300 300 / 1300 Other: Urine Color Yellow Yellow Yellow Urine Appearance Clear Clear Clear Urine Odor Normal Normal Strong Stool Occult Blood Negative Stool Size Small Smear Stool Characteristics Soft Soft Brown Voiding Methods Toilet Toilet Bedside Commode Bedside Commode Completed studies during hospitalization [Text1]: CXR 11/22/18: Bibasilar infiltrates, left greater than right. CT chest 11/22/18: Bilateral lower lobe infiltrates, left greater than right. No evidence of pulmonary emboli. Labs on day of discharge: Labs from last 24 hours 11/27/18 15:00 Vancomycin Trough Pending Preliminary micro results at discharge 11/22/18 17:49 Blood Culture - Preliminary Blood NO GROWTH 96 HOURS 11/22/18 17:31 Blood Culture - Preliminary Blood NO GROWTH 96 HOURS [facility] Medical History COPD (chronic obstructive pulmonary disease) Diverticulosis History of tobacco abuse Hypothyroid Osteopenia Surgical History Colonoscopy - MAC (06/22/16) Social History Smoking/Tobacco Use Status: Former Tobacco Use Drug use: Never
--- NOTE | 2018-11-27 12:48 | HHF2F_ITS ---
1. Encounter Date and Reason I certify that PATRICIA SMALL was seen by Sindhu Lomas on 11/27/18 and that I had a [id number] encounter with this patient that meets the physician face to face encounter requirements. 2. Clinical Findings Supporting Skilled Need and Homebound Status I certify that home health services are medically necessary, include either intermittent [place] [facility] and/or physical/speech therapy, and that this patient is homebound in that absences from the home require considerable and taxing effort and are infrequent or of short duration, or are attributable to the need to receive medical care. [X] (a) Attached documentation from encounter provides clinical findings supporting skilled need and homebound status (including what assistance patient requires to leave the home). The encounter with the patient was in whole, or in part, for the following medical condition, which is the primary reason for home health care: BIALTERAL PNEUMONIA,COPD EXACERBATION Halfway: COPD Physical Therapy: eval and treat Occupational Therapy: eval and treat [facility] Program: COPD Homebound: unable to leave home without assistance 3. Certification and Authentication I certify that I composed the above information based on my clinical judgement relating to this patient's medical condition and, if applicable, clinical findings communicated to me by the NPP or inpatient physician who performed the Home Health Referral. All further orders will be obtained through Dr Jude Nino (Community Based Physician - PCP)
--- NOTE | 2018-11-27 14:52 | PDOC.CMDIS ---
- If Service Date Differs Date of service: 11/27/18 Time of Service: 14:52 LACE Index Scoring Tool - Questions: Length of Stay (in days): 4 - 6 Acuity (Admit via E.D.?): Yes Comorbidities: Chronic Pulmonary Disease E.D. Visits: 1 - Answers: Total Score: 10 Risk of Readmission: High Risk Care Management Discharge Reason for Hospitalization: Pneumonia with a history of COPD, she was discharged one week ago from acute facility in [place]. Discharge Plan: Lisbeth will be discharged home with home health servcies, nursing PT/OT and better breathing. She will follow up with office CM contacted the office and spoke with nurse. They are going to try to schedule her this week and will contact her directly. She has a walker at home. Lisbeth will transport home with her spouse at time of discharge. Patient/Family Education Needs: Discharge education, limitations and follow up plan of care, including ask me three and self management. Services Needed at Discharge: DME Agency, Home Health Care Services, Occupational Therapy, Respiratory Care Services, Physical Therapy
--- NOTE | 2018-11-27 15:03 | CMDISCH_ITS ---
- If Service Date Differs Date of service: 11/27/18 Time of Service: 14:52 LACE Index Scoring Tool - Questions: Length of Stay (in days): 4 - 6 Acuity (Admit via E.D.?): Yes Comorbidities: Chronic Pulmonary Disease E.D. Visits: 1 - Answers: Total Score: 10 Risk of Readmission: High Risk Care Management Discharge Reason for Hospitalization: Pneumonia with a history of COPD, she was discharged one week ago from acute facility in [place]. Discharge Plan: Lisbeth will be discharged home with home health servcies, nursing PT/OT and better breathing. She will follow up with office CM contacted the office and spoke with nurse. They are going to try to schedule her this week and will contact her directly. She has a walker at home. Lisbeth will transport home with her spouse at time of discharge. Patient/Family Education Needs: Discharge education, limitations and follow up plan of care, including ask me three and self management. Services Needed at Discharge: DME Agency, Home Health Care Services, Occupational Therapy, Respiratory Care Services, Physical Therapy
== END 2018-11-27 15:14 | disposition home or self-care (01) | DRG 194 ==
LOC: ER 19:27 → ICU 20:23 → MS 11-27 12:30 → ICU 12-02 14:14
PROVIDERS: Admitting Provider Family Medicine; Emergency Provider Student in an Organized Health Care Education/Training Program; PCP Specialist/Technologist Athletic Trainer; Visit Provider Internal Medicine
DX: J18.1 Lobar pneumonia, unspecified organism (principal); J95.851 Ventilator associated pneumonia; J44.0 Chronic obstructive pulmonary disease with (acute) lower respiratory infection; J44.1 Chronic obstructive pulmonary disease with (acute) exacerbation; E27.40 Unspecified adrenocortical insufficiency; Y84.8 Other medical procedures as the cause of abnormal reaction of the patient, or of later complication, without mention of misadventure at the time of the procedure; Y95 Nosocomial condition; R79.1 Abnormal coagulation profile; R09.02 Hypoxemia; D53.9 Nutritional anemia, unspecified; E03.9 Hypothyroidism, unspecified; Z87.891 Personal history of nicotine dependence; I95.9 Hypotension, unspecified
CPT/HCPCS: 36410; 36415; 71275; 80048; 80053; 82805; 85027; 87040; 87449; 92610; 94618; 94640; 96365; 97110; 97162; 97166; 97530; 97535; 99223; 99232; 99239; 99291; J1650; 36600; 71046; 80202; 82607; 82728; 82746; 83540; 83550; 83605; 83735; 83880; 84443; 84484; 85025; 85379; 87070; 87205; 87450; J1644; J1956; J2930; J3490; J7512; J7620

== ENCOUNTER 2018-12-17 00:14 | Outpatient (CLI) | payer OTHER, SELFPAY ==
--- NOTE | 2018-12-17 09:21 | MERGE_ITS ---
*[facility]* *[facility]* [address] [place] [address] Date of study: 12/17/2018 Transthoracic Echocardiography M-mode, complete 2D, complete spectral Doppler, and color Doppler *STUDY CONCLUSIONS* Summary: 1. Left ventricle: The cavity size was normal. The estimated ejection fraction was 55%. Some parameters suggest diastolic dysfunction. There was no evidence of elevated ventricular filling pressure by Doppler parameters. 2. Mitral valve: There was mild regurgitation. 3. Right ventricle: The cavity size was normal. Wall thickness was normal. Systolic function was normal. 4. Atrial septum: No defect or patent foramen ovale was identified. 5. Pulmonary arteries: Pulmonary systolic pressure was in the range of 30mm Hg to 40mm Hg. 6. Inferior vena cava: The vessel was patent and normal in size. The respirophasic diameter changes were in the normal range (greater than or equal to 50%), consistent with normal central venous pressure. *PATIENT PRESENTATION* Height: 152.4cm ((60in) ) S/D Pressure: 116 / 63 Weight: 42.2kg ((92.8lb) ) BSA: 1.33m^2 Test start time: 07:45 AM. Test stop time: 08:40 AM. PERFORMING Unknown PERFORMING [facility] CONSULTING Jude Nino Tina REFERRING Heck, Tina [employer]DER RT Cory (R)(CT), RUBEN *PROCEDURE DATA* Procedure information: The patient was identified by two identifiers. This study was interpreted by [facility]. Pertinent images and digital data are archived for permanent storage and are available for subsequent review. No prior study was available for comparison. Study status: Routine. Transthoracic echocardiography. M-mode, complete 2D, complete spectral Doppler, and color Doppler. A Transthoracic Echocardiogram was performed. Scanning was performed from the parasternal, apical, subcostal, and suprasternal notch acoustic windows. Images were obtained using an [id number] cardiac ultrasound machine. Image quality was good. Study completion: The patient tolerated the procedure well. History: PMH: Cough, peripheral edema, ? CHF. R05 R60.9. *CARDIAC ANATOMY* Left ventricle: The cavity size was normal. The estimated ejection fraction was 55%. The tissue Doppler parameters were abnormal. Some parameters suggest diastolic dysfunction. There was no evidence of elevated ventricular filling pressure by Doppler parameters. Aortic valve: Trileaflet. Doppler: There was no stenosis. There was no regurgitation. VTI ratio of LVOT to aortic valve: 0.72. Valve area (VTI): 2.3cm^2. Indexed valve area (VTI): 1.7cm^2/m^2. Peak velocity ratio of LVOT to aortic valve: 0.74. Valve area (Vmax): 2.3cm^2. Indexed valve area (Vmax): 1.8cm^2/m^2. Mean velocity ratio of LVOT to aortic valve: 0.72. Valve area (Vmean): 2.3cm^2. Indexed valve area (Vmean): 1.7cm^2/m^2. Mean gradient (S): 3mm Hg. Peak gradient (S): 4.6mm Hg. Aorta: Aortic root: The aortic root was normal in size. Ascending aorta: The ascending aorta was normal in size. Mitral valve: Doppler: There was no evidence for stenosis. There was mild regurgitation. Valve area by pressure half-time: 3.1cm^2. Indexed valve area by pressure half-time: 2.3cm^2/m^2. Left atrium: The atrium was normal in size. Atrial septum: No defect or patent foramen ovale was identified. Right ventricle: The cavity size was normal. Wall thickness was normal. Systolic function was normal. Pulmonic valve: Doppler: There was no evidence for stenosis. There was mild regurgitation. Peak gradient (S): 2.3mm Hg. Tricuspid valve: Doppler: There was mild regurgitation. Pulmonary artery: Poorly visualized. Pulmonary systolic pressure was in the range of 30mm Hg to 40mm Hg. Right atrium: The atrium was normal in size. Pericardium: There was no pericardial effusion. Systemic veins: Inferior vena cava: Well visualized. The vessel was patent and normal in size. The respirophasic diameter changes were in the normal range (greater than or equal to 50%), consistent with normal central venous pressure. Baseline ECG: Normal sinus rhythm. Measurements Left ventricle Value Reference LV ID, ED, PLAX 3.9 cm 3.5 - 6.0 LV ID, ES, PLAX 3.0 cm 2.1 - 4.0 LV PW thickness, ED, PLAX 0.9 cm LV end-diastolic volume, 1-p A2C 45 ml LV ejection fraction, 1-p A2C 51 % LV end-diastolic volume, 1-p A4C 50 ml LV ejection fraction, 1-p A4C 56 % LV e', lateral 0.079 m/sec LV E/e', lateral 7 LV e', medial 0.062 m/sec LV E/e', medial 9 LV e', average 0.07 m/sec LV E/e', average 8 Ventricular septum Value Reference IVS thickness, ED, PLAX 0.8 cm LVOT Value Reference LVOT ID, A-P 2.0 cm LVOT area 3.2 cm^2 LVOT peak velocity, S 0.79 m/sec LVOT mean velocity, S 0.6 m/sec LVOT VTI, S 14.3 cm LVOT peak gradient, S 2.5 mm Hg LVOT mean gradient, S 1.6 mm Hg Stroke volume (SV), LVOT DP 45 ml Stroke index (SV/bsa), LVOT DP 34 ml/m^2 Aortic valve Value Reference Aortic valve peak velocity, S 1.1 m/sec Aortic valve mean velocity, S 0.83 m/sec Aortic valve VTI, S 20.0 cm Aortic mean gradient, S 3 mm Hg Aortic peak gradient, S 4.6 mm Hg VTI ratio, LVOT/AV 0.72 Aortic valve area, VTI 2.3 cm^2 Velocity ratio, peak, LVOT/AV 0.74 Aortic valve area, peak velocity 2.3 cm^2 Velocity ratio, mean, LVOT/AV 0.72 Aortic valve area, mean velocity 2.3 cm^2 Aortic valve area/bsa, mean velocity 1.7 cm^2/m^2 Aorta Value Reference Aortic root ID, ED 2.6 cm Ascending aorta ID, A-P, S 2.9 cm Left atrium Value Reference LA ID, A-P, ES 2.4 cm LA ID/bsa, A-P 1.8 cm/m^2 <=2.2 LA area, ES, A4C (L) 8 cm^2 8.8 - 23.4 LA area, ES, A2C 8 cm^2 LA volume/bsa, ES, 1-p A4C 11 ml/m^2 LA volume, ES, 2-p 13 ml LA volume/bsa, ES, 2-p 9 ml/m^2 LA/aortic root ratio 0.92 Mitral valve Value Reference Mitral E-wave peak velocity 0.55 m/sec Mitral A-wave peak velocity 0.53 m/sec Mitral deceleration time (H) 245 ms 150 - 230 Mitral pressure half-time 71 ms Mitral E/A ratio, peak 1.02 Mitral valve area, PHT, DP 3.1 cm^2 Tricuspid valve Value Reference Tricuspid regurg peak velocity 2.8 m/sec Tricuspid peak RV-RA gradient 31.4 mm Hg Right atrium Value Reference RA area, ES, A4C 9.6 cm^2 8.3 - 19.5 Pulmonic valve Value Reference Pulmonic peak gradient, S 2.3 mm Hg Legend: (L) and (H) abel values outside specified reference range. I have personally reviewed the images and have reviewed and edited the reported findings. Electronically signed by Zuhair Conteh MD 12/17/2018 12:27
== END 2018-12-17 00:34 ==
PROVIDERS: PCP Specialist/Technologist Athletic Trainer; Visit Provider Nurse Practitioner Family
DX: R05 Cough (principal); R60.0 Localized edema; I34.0 Nonrheumatic mitral (valve) insufficiency
CPT/HCPCS: 93306

== ENCOUNTER → 2019-02-11 12:46 | Outpatient (BNVA) | payer OTHER, SELFPAY | PROVIDERS: PCP Specialist/Technologist Athletic Trainer; Referring Provider Nurse Practitioner Family; Visit Provider Student in an Organized Health Care Education/Training Program | DX: R00.2 Palpitations (principal); I10 Essential (primary) hypertension; J44.9 Chronic obstructive pulmonary disease, unspecified; Z87.891 Personal history of nicotine dependence | CPT/HCPCS: 99204; 99215 ==

== ENCOUNTER 2019-02-11 13:38 | Outpatient (CLI) | payer OTHER, SELFPAY | END 2019-02-11 13:58 | PROVIDERS: PCP Specialist/Technologist Athletic Trainer; Visit Provider Student in an Organized Health Care Education/Training Program | DX: R00.2 Palpitations (principal) | CPT/HCPCS: 93005; 93010 ==

== ENCOUNTER 2019-02-12 10:48 | Outpatient (REF) | payer OTHER, SELFPAY ==
[2019-02-12 20:52] LABS: Abs Immature Grans 0.01 k/cumm (0.0-0.09); Absolute Basophil Count 0.02 k/cumm (0.0-0.2); Absolute Eosinophil Count 0.32 k/cumm (0.0-0.7); Absolute Lymphocyte Count 2.53 k/cumm (1.2-3.4); Absolute Monocyte Count 0.76 k/cumm (0.11-0.7); Absolute Neutrophil Count 3.14 k/cumm (1.2-6.7); Basophils % 0.3; Eosinophils % 4.7; HCT 39.3 % (36.0-46.0); HGB 12.3 g/dL (12.0-15.5); Immature Grans % 0.1; Lymphocytes % 37.3; Mean Corp. HGB Concentration 31.3 g/dL (32.0-36.0); Mean Corpuscular Hemoglobin 30.3 pg (27.0-33.0); Mean Corpuscular Volume 96.8 fL (80-95); Mean Platelet Volume 11.1 fL (8.0-11.0); Monocytes % 11.2; Neutrophils % 46.4; Platelet Count 337 x1000/uL (130-400); RBC 4.06 m/cumm (4.00-5.20); RBC Distribution Width 14.1 % (11.7-14.6); White Blood Cell Count 6.78 k/cumm (4.4-10.8)
[2019-02-12 21:14] LABS: Anion Gap 5.8 mmol/L (3-11); BUN 27 mg/dL (7-18); CO2 30.2 mmol/L (21.0-32.0); CREATININE 0.95 mg/dL (0.55-1.02); Calcium 9.8 mg/dL (8.5-10.1); Chloride 108 mmol/L (98-107); Estimated GFR 57.99 (mL/min/1.73m2); Glucose 95 mg/dL (70-100); Potassium 4.1 mmol/L (3.5-5.1); Sodium 144 mmol/L (136-145)
== END 2019-02-12 11:08 ==
LOC: NCHCN 10:48
PROVIDERS: PCP Specialist/Technologist Athletic Trainer; Visit Provider Specialist/Technologist Athletic Trainer
DX: R60.0 Localized edema (principal); Z86.2 Personal history of diseases of the blood and blood-forming organs and certain disorders involving the immune mechanism
CPT/HCPCS: 80048; 85025

== ENCOUNTER 2019-07-27 00:57 | Outpatient (CLI) | payer OTHER, SELFPAY ==
--- NOTE | 2019-07-27 14:16 | DI.CT_ITS ---
EXAM: CT CHEST WO CLINICAL HISTORY: CHRONIC OBSTRUCTIVE LUNG DISEASE,J44.9. TECHNIQUE: Imaging protocol: Axial computed tomography images were obtained and coronal and sagittal reformatted images were created and reviewed. CONTRAST MATERIAL: Intravenous: Omnipaque 350 Contrast volume:0 mL contrast route:IV - Oral: No COMPARISON: CT CHEST PE CTA from 11/22/2018 FINDINGS: Tracheobronchial tree: Patent where visualized. Mediastinum and Tati: No dominant adenopathy or fluid collection. Pulmonary parenchyma: No consolidation or dominant measurable mass. Emphysematous changes are seen in the lungs. There is a small infiltrate in the left lower lobe. This may represent atelectasis, scarr ing or pneumonia. No pulmonary nodules are present. There is scarring seen in the right upper lobe. Pleura: No effusion or pneumothorax. Heart/Aorta: Atherosclerosis. No aneurysmal dilatation. The heart is not dilated. Coronary artery c alcifications are present. No pericardial effusion. Upper abdomen: There is diverticulosis seen in the colon. Lymph nodes: Within normal limits. Bones: Degenerative changes are seen in the spine. IMPRESSION: 1. Pulmonary emphysematous changes. 2. Small infiltrate in the left lower lobe. This may represent atelectasis, scarring or pneumonia. 3. Atherosclerosis and coronary artery calcifications. 4. Colonic diverticulosis. DATA REPOSITORY: All CT scans at this facility are submitted to the National Radiology Data Registry (NRDR) Dose Index Registry (DIR) with the [employer] (ACR). RADIATION OPTIMIZATION: All CT scans at this facility use at least one of these dose optimization te chniques: automated exposure control; mA and/or kV adjustment per patient size (includes targeted exa ms where dose is matched to clinical indication); or iterative reconstruction.
== END 2019-07-27 01:17 ==
PROVIDERS: PCP Specialist/Technologist Athletic Trainer; Visit Provider Internal Medicine
DX: J44.9 Chronic obstructive pulmonary disease, unspecified (principal); J98.4 Other disorders of lung; R91.8 Other nonspecific abnormal finding of lung field; I25.10 Atherosclerotic heart disease of native coronary artery without angina pectoris; K57.30 Diverticulosis of large intestine without perforation or abscess without bleeding
CPT/HCPCS: 71250

== ENCOUNTER 2019-10-02 14:00 | Outpatient (RCR) | payer OTHER, SELFPAY | END 2019-10-03 23:59 | disposition home or self-care (01) | LOC: PRC 14:00 | PROVIDERS: PCP Specialist/Technologist Athletic Trainer; Visit Provider Family Medicine | DX: J44.9 Chronic obstructive pulmonary disease, unspecified (principal); Z51.89 Encounter for other specified aftercare | CPT/HCPCS: G0424 ==

== ENCOUNTER 2019-10-09 14:00 | Outpatient (RCR) | payer OTHER, SELFPAY | END 2019-11-03 23:59 | disposition home or self-care (01) | LOC: PRC 14:00 | PROVIDERS: PCP Specialist/Technologist Athletic Trainer; Visit Provider Family Medicine | DX: J44.9 Chronic obstructive pulmonary disease, unspecified (principal); Z51.89 Encounter for other specified aftercare | CPT/HCPCS: G0424 ==

== ENCOUNTER 2019-12-11 13:49 | Outpatient (REF) | payer OTHER, SELFPAY ==
[2019-12-11 19:15] LABS: Anion Gap 6.5 mmol/L (3-11); BUN 35 mg/dL (7-18); CO2 29.5 mmol/L (21.0-32.0); Calcium 10.1 mg/dL (8.5-10.1); Chloride 105 mmol/L (98-107); Estimated GFR 40.26 (mL/min/1.73m2); Glucose 92 mg/dL (74-106); Potassium 4.5 mmol/L (3.5-5.1); Sodium 141 mmol/L (136-145); TSH 0.08 uIU/mL (0.36-3.74)
== END 2019-12-11 14:09 ==
LOC: NCHCN 13:49
PROVIDERS: PCP Specialist/Technologist Athletic Trainer; Visit Provider Nurse Practitioner Family
DX: E03.9 Hypothyroidism, unspecified (principal); J44.9 Chronic obstructive pulmonary disease, unspecified
CPT/HCPCS: 80048; 84443

== ENCOUNTER 2019-12-30 01:08 | Outpatient (CLI) | payer OTHER, SELFPAY ==
--- NOTE | 2019-12-30 | DI.MAMMO_ITS ---
EXAM: MAMMO SCREENING CLINICAL HISTORY: SCREENING, Z12.31 TECHNIQUE: Mammograms were interpreted according to the usual protocol including computer analysis w [employer] CAD system, tomosynthesis and C-view imaging. COMPARISON: 2010 through 2017 FINDINGS: The breasts are composed of heterogeneously dense fibroglandular densities, Breast Density category C . No suspicious masses or suspicious microcalcifications are seen. No skin thickening or abnormal axillary lymph nodes are seen. There has been no significant change from prior exams. A biopsy marker clip is again noted in the rig ht breast. IMPRESSION: BI-RADS Category 1: Negative mammogram. Yearly screening mammography is recommended. Breast density category C, heterogeneously dense tissue which decreases the sensitivity of the mammog lalit. The mammogram demonstrates the patient's breast tissue is dense. Dense breast tissue is very common a nd is not abnormal but dense breast tissue can make it harder to find cancer on a mammogram. Also, de nse breast tissue may increase breast cancer risk. This information about the result of the mammogram report was provided to the patient to raise their awareness. Use this report when you speak with the patient about their risks for breast cancer, which includes their family history. At that time, you may recommend additional screening tests (Ultrasound or MRI) as they might be useful based on their r isk. A negative radiographic report should not delay biopsy if a dominant or clinically suspicious mass is present. Up to ten percent of cancers are not identified on mammography. A negative report may reinforce clinical impression. Adenosis and dense breasts may obscure an underlying neoplasm. False positive reports average 6 to 10%.
--- NOTE | 2019-12-30 | DI.US_ITS ---
EXAM: US RENAL CLINICAL HISTORY: URINARY RETENTION,R33.9. TECHNIQUE: Galaviz scale, color and spectral Doppler were used. COMPARISON: CT CT CHEST PE CTA from 11/22/[address] CHEST WO from 07/27/2019 FINDINGS: Renal length in cm: Right: 8.5 left: 8.6 Echogenicity: Normal Hydronephrosis: No Cyst or mass: No Nephrolithiasis: No Other findings: None Bladder:Nearly empty, not well evaluated l Prevoid vol:21 cc Postvoid vol:1 cc IMPRESSION: Mild renal parenchymal atrophy. No evidence of hydronephrosis. The bladder was not well evaluated due to inadequate distension on pre void images.. DATA REPOSITORY:
== END 2019-12-30 01:28 ==
PROVIDERS: PCP Nurse Practitioner Family; Visit Provider Nurse Practitioner Family
DX: R33.9 Retention of urine, unspecified (principal); Z12.31 Encounter for screening mammogram for malignant neoplasm of breast
CPT/HCPCS: 76770; 77063; 77067

== ENCOUNTER 2020-02-01 12:52 | Outpatient (REF) | payer OTHER, SELFPAY ==
[2020-02-01 20:34] LABS: Anion Gap 10.1 mmol/L (3-11); BUN 37 mg/dL (7-18); CO2 27.9 mmol/L (21.0-32.0); CREATININE 1.78 mg/dL (0.55-1.02); Calcium 10.2 mg/dL (8.5-10.1); Chloride 106 mmol/L (98-107); Estimated GFR 28.02 (mL/min/1.73m2); Glucose 112 mg/dL (74-106); Potassium 3.9 mmol/L (3.5-5.1); Sodium 144 mmol/L (136-145); TSH (W/Ref FT4) 0.67 uIU/mL (0.36-3.74)
== END 2020-02-01 13:12 ==
LOC: NCHCN 12:52
PROVIDERS: PCP Nurse Practitioner Family; Visit Provider Nurse Practitioner Family
DX: E03.9 Hypothyroidism, unspecified (principal); J44.9 Chronic obstructive pulmonary disease, unspecified
CPT/HCPCS: 80048; 84443

== ENCOUNTER 2020-06-02 15:17 | Outpatient (REF) | payer OTHER, SELFPAY ==
[2020-06-02 18:57] LABS: HCT 40.7 % (36.0-46.0); HGB 13.6 g/dL (11.2-15.7); MCH 31.3 pg (27.0-33.0); MCHC 33.4 % (32.0-36.0); MCV 93.6 fL (80-95); MPV 11.2 fL (8.0-11.0); Platelet Count 276 10^3/uL (130-400); RBC 4.35 10^6/uL (3.93-5.22); RDW 13.2 % (11.7-14.6); RDW-SD 45.4 fL; WBC 8.02 10^3/uL (4.4-10.8)
[2020-06-02 19:23] LABS: Anion Gap 10.1 mmol/L (3-11); BUN 31 mg/dL (7-18); CO2 24.9 mmol/L (21.0-32.0); CREATININE 1.31 mg/dL (0.55-1.02); Calcium 10.2 mg/dL (8.5-10.1); Chloride 106 mmol/L (98-107); Estimated GFR 39.91 (mL/min/1.73m2); Glucose 122 mg/dL (74-106); Sodium 141 mmol/L (136-145)
[2020-06-02 21:19] LABS: Vitamin D 25 Total 111.4 ng/ml (30-100)
== END 2020-06-02 15:37 ==
LOC: NCHCN 15:17
PROVIDERS: PCP Nurse Practitioner Family; Visit Provider Nurse Practitioner Family
DX: Z86.2 Personal history of diseases of the blood and blood-forming organs and certain disorders involving the immune mechanism (principal); Z02.89 Encounter for other administrative examinations; E03.9 Hypothyroidism, unspecified; R53.83 Other fatigue
CPT/HCPCS: 80048; 82306; 85027; 84443

== ENCOUNTER 2020-07-13 01:03 | Outpatient (CLI) | payer OTHER, SELFPAY ==
--- NOTE | 2020-07-13 | DI.CTLCSR_ITS ---
EXAM: CT CHEST LUNG CANCER SCREEN CLINICAL HISTORY: SCREENING FOR LUNG CA,FORMER SMOKER, Z87.891. TECHNIQUE: Imaging Protocol: Low-dose protocol. No IV contrast CONTRAST MATERIAL: Intravenous: None COMPARISON: Chest CT scan 07/27/2019 FINDINGS: CHEST: LUNGS: Some scarring in the right lung apex is noted. Also some benign-appearing subpleural infiltra te noted at the junction of the posterior segment of the right upper lobe and superior segment of the right lower lobe. Small nodular infiltrate noted inferiorly in the right upper lobe measuring 7 mil limeters. Mild infiltrate is seen in the medial segment of the right middle lobe adjacent to the rig ht heart border. Small nodular density noted line in the lateral segment of the right lower lobe, th is measuring 4 millimeters. Mild scarring noted in the medial basal segment of the right lower lobe. No right pleural effusion. . In the opposite-left lung there is mild sub apical scarring. Mild infiltrate noted in the inferio r lingular segment. No other upper lobe findings. Mild benign-appearing increased markings noted in the posterior basal and lateral basal segments of left lower lobe. No pleural effusion. No significant focal findings in the trachea and mainstem bronchi. MEDIASTINUM: There is no hilar nor mediastinal adenopathy. CARDIAC: Heart size is normal. There is no significant pericardial effusion.Caliber of the thoracic aorta is within normal limits. OSSEOUS: No significant osseous lesions.. IMPRESSION: 1. Right lung findings as described above, requiring appropriate follow-up no pleural effusions. No obvious intrathoracic adenopathy.. 2. No pleural effusions LungRads Category: 3- six month follow-up CT scan recommended. RADIATION DOSE DELIVERED: 74.29mGy.cm Total DLP DATA REPOSITORY: All CT scans at this facility are submitted to the National Radiology Data Registry (NRDR) Dose Index Registry (DIR) with the [employer] (ACR). RADIATION OPTIMIZATION: All CT scans at this facility use at least one of these dose optimization te chniques: automated exposure control; mA and/or kV adjustment per patient size (includes targeted exa ms where dose is matched to clinical indication); or iterative reconstruction.
== END 2020-07-13 01:23 ==
PROVIDERS: PCP Nurse Practitioner Family; Visit Provider Internal Medicine
DX: Z87.891 Personal history of nicotine dependence (principal); R91.8 Other nonspecific abnormal finding of lung field
CPT/HCPCS: G0297

== ENCOUNTER 2020-08-01 14:48 | Outpatient (REF) | payer OTHER, SELFPAY ==
[2020-08-01 19:58] LABS: PHOSPHORUS 3.4 mg/dL (2.6-4.7)
[2020-08-03 09:55] LABS: Parathyroid Hormone,Intact 56 pg/mL (19-88)
== END 2020-08-01 15:08 ==
LOC: NCHCN 14:48
PROVIDERS: PCP Nurse Practitioner Family; Visit Provider Nurse Practitioner Family
DX: R53.83 Other fatigue (principal); E03.9 Hypothyroidism, unspecified; M25.59 Pain in other specified joint; Z79.899 Other long term (current) drug therapy
CPT/HCPCS: 82306; 83970; 84100; 84443

== ENCOUNTER 2020-12-29 01:10 | Outpatient (CLI) | payer OTHER, SELFPAY ==
--- NOTE | 2020-12-29 | DI.US_ITS ---
Exam(s) US SOFT TISS ABD WALL/LOW BACK EXAM: US SOFT TISS ABD WALL/LOW BACK CLINICAL HISTORY: LT SIDED RIB PAIN, R07.81,PALPABLE SOFT TISSUE MASS. TECHNIQUE: Ultrasound was performed using standard protocol. COMPARISON: US US RENAL from 12/30/2019 FINDINGS: Ultrasound of the area of concern on the left anterior chest wall was performed. There is a relatively well-defined subcutaneous finding which is slightly hyperechoic compared to bryson rounding tissue and measures approximately 5.8 x 4.9 x 1.2 cm. This exactly corresponds to the palpa ble lump. This finding as appearance of a probable lipoma. Exhibits minimal vascularity. 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 Recommend rescanning to ensure stability in 6 months, earlier if clinically indicated. DATA REPOSITORY:
== END 2020-12-29 01:30 ==
PROVIDERS: PCP Nurse Practitioner Family; Visit Provider Nurse Practitioner Family
DX: R07.81 Pleurodynia (principal); R22.2 Localized swelling, mass and lump, trunk; D17.39 Benign lipomatous neoplasm of skin and subcutaneous tissue of other sites
CPT/HCPCS: 76705

== ENCOUNTER 2021-03-08 11:30 | Emergency (ER) | payer OTHER, SELFPAY ==
[2021-03-08] VITALS (9 sets, daily range): BP systolic 121; BP diastolic 74; PULSE 85; TEMP 36.8; O2SAT 94–97
--- NOTE | 2021-03-08 11:45 | DI.RAD_ITS ---
Exam(s) XR CHEST 2V PA LATERAL EXAM: XR CHEST 2V PA LATERAL CLINICAL HISTORY: cough, fatigue. TECHNIQUE: 2D digital imaging was performed. COMPARISON: CR XR CHEST 2V PA LATERAL from 11/22/2018 FINDINGS: Heart size is normal. The mediastinum is not widened. Lungs are clear. No infiltrates nor pleural effusions. The previously present left lower lobe infiltrate seen on the November 2018 chest x-ray is no longer pre sent. Again noted is a healed fracture of the right 7th rib. No obvious acute fractures. No pneumothorax. IMPRESSION: No acute pulmonary findings. DATA REPOSITORY: RADIATION DOSE DELIVERED:
--- NOTE | 2021-03-08 11:45 | RT.EKG_ITS ---
APPROVED REPORT Exam: Resting ECG Reason for Exam: fatigue Patient Location: E HR:64 bpm ECG Measurements Heart Rate 64 AXIS HI 153 P 76 QRSd 104 QRS 67 QT 421 T 61 QTc 433 Conclusion Sinus rhythm...normal P axis, V-rate 60- 99
--- NOTE | 2021-03-08 12:34 | W.ED.GENAD ---
Discharge Plan Disposition Patient Disposition: HOME Condition: Stable Discharge Details Clinical Impression: COPD (chronic obstructive pulmonary disease) Primary Care Provider: Irma Sweeney ED Provider: Cristal Barraza Home Meds and New Rx's Prescriptions: Continued Trelegy Ellipta 100-62.5-25 mcg blister with device 1 inh IH DAILY RF: 0 trazodone 50 MG tablet 50 mg PO HS RF: 0 levothyroxine 25 MCG tablet 75 mcg PO DAILY RF: 0 albuterol sulfate [ProAir HFA] 200 PUFF HFA aerosol inhaler 2 inh Inhalation Q4H PRN PRNRF: 0 multivitamin [Daily Multiple] 1 EACH tablet 1 ea PO DAILY RF: 0 cholecalciferol (vitamin D3) 1,000 UNITS tablet 1,000 unit PO DAILY RF: 0 calcium carbonate-vitamin D3 1 EACH capsule 1 ea PO DAILY RF: 0 Probiotic and Acidophilus 300-250 million cell-mg Capsule 1 cap PO DAILY RF: 0 guaifenesin [Mucinex] 600 mg Tablet Extended Release 12hr 600 mg PO BID PRN PRN (Reason: cough) Qty: 30 RF: 0 Discharge Instructions Instructions: COPD (Chronic Obstructive Pulmonary Disease) (ED) Additional Instructions: Please go to your appointment tomorrow at 8:00 and discuss your depression and anxiety with your doctor, this is very important Please let her know you are evaluated in the emergency room and she should be able to review all the diagnostic tests that we ordered Please follow-up with the tracer bullet charging machine operator, I have placed a referral for you Please return earlier should you have new or worsening complaints including chest pain, shortness of breath, dizziness, weakness, or if you have any new or worsening complaints Referrals: Irma Sweeney [Primary Care Provider] - (appt tomorrow 03/09/21 at 8 am) Nicole Lyons MD [ [facility] STAFF PHYSICIAN] - 1 week Medical Decision Making Chest x-ray does not show acute abnormality per my review and radiology interpretation EKG is normal sinus rhythm Diagnostic labs do not show acute abnormality, specifically thyroid remainder of imaging normal No evidence of adrenal crisis No evidence of pneumonia, neural evidence of COPD exacerbation, on baseline oxygenation, 97% actually removed her oxygen while at rest in room and oxygen 97% on room air She is given referral to pulmonology as she no longer has a tracer bullet charging machine operator locally I think that patient also has some underlying depression and found like she is very frustrated regarding her need for oxygen and bringing this into activities that she and her recent past did not need Suspect an element depression and anxiety I do not see an obvious medical reason for her reported fatigue although she has been alert, oriented, interactive throughout this entire evaluation Patient's primary care physician was consulted and will see patient at 8:00 tomorrow, patient discharged home in stable condition with stable vitals Medical Records Medical records reviewed: Yes I reviewed the patient's medical records. Lab Data Lab results reviewed: Yes I reviewed the patient's lab results. HPI General Mode of arrival: ambulatory. Date/Time Provider Initiated Documentation: 03/08/21 11:31. Limitations to Documentation: no limitations. Information obtained by: patient. HPI Narrative: Very pleasant 75-year-old female with past medical history of adrenal disease, COPD, pulmonary nodule, oxygen dependency, hypothyroidism presents with report of 1 month of feeling very tired with intermittent cough, no fevers. Patient states she came in today secondary to being concerned about her sleeping most of the day the past 4 days. Patient states her shortness of breath is at her baseline. She uses oxygen with any sort of exertion and this is not new for her. She does states she is having intermittent cough which is productive of phlegm but states that this is not dramatically changed. She denies any chest discomfort, fever, chills, urinary symptoms. She denies any abdominal pain, nausea, or vomiting. She did call her doctor today and they recommended she have some diagnostic labs checked She denies any traumatic change in her symptoms over the course of the past month. She does not feel like she is using her oxygen more frequently. She denies any new medications. Related Data Home Medications Medication Instructions Recorded Confirmed albuterol sulfate [ProAir HFA] 2 inh INHALATION Q4H PRN PRN 06/26/15 02/11/19 levothyroxine 75 mcg PO DAILY 06/26/15 02/11/19 trazodone 50 mg PO HS 06/26/15 02/11/19 calcium carbonate-vitamin D3 1 ea PO DAILY 10/15/17 02/11/19 cholecalciferol (vitamin D3) 1,000 unit PO DAILY 10/15/17 02/11/19 multivitamin [Daily Multiple] 1 ea PO DAILY 10/15/17 02/11/19 Probiotic and Acidophilus 1 cap PO DAILY 11/22/18 02/11/19 guaifenesin [Mucinex] 600 mg PO BID PRN PRN #30 tab 11/27/18 02/11/19 fluticasone fur. 100 mcg-umeclid 1 inh IH DAILY 02/11/19 02/11/19 62.5 mcg-vilant 25 mcg inhalat.powder Previous Rx's Medication Instructions Recorded guaifenesin [Mucinex] 600 mg PO BID PRN PRN #30 tab 11/27/18 Allergies Allergy/AdvReac Type Severity Reaction Status Date / Time No Known Allergies Allergy Unverified 03/08/21 11:41 General Stated Complaint: GenMedical OLIVIER: 3 Review of Systems All systems reviewed & are unremarkable except as noted in HPI and below PFSH Medical History (Updated 03/08/21 @ 14:07 by SUE Dangelo) COPD (chronic obstructive pulmonary disease) Diverticulosis Diverticulosis History of tobacco abuse Hypothyroid Osteopenia Psoriasis Pulmonary nodules Surgical History (Updated 03/01/21 @ 16:18 by Jade Humphrey RN) Colonoscopy - [facility] (06/22/16) Hx of tonsillectomy Family History (Updated 03/01/21 @ 16:19 by Jade Humphrey RN) Father No problems noted. 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 What is your relationship status?: Panel score (0-1 are the most socially isolated patients): 1 Do you feel safe at home: Yes Do you feel safe in your relationship?: Yes Exam Const General: cooperative and no acute distress HENMT Mouth: oral mucosae normal Eyes Sclera: sclerae normal Resp Effort & Inspection: normal respiratory effort Auscultation: no wheezes Cardio Rate: regular rate Rhythm: regular rhythm GI Other: Soft, nontender Skin General skin exam: no rashes or lesions noted Neuro General: patient alert and patient oriented x3 Cranial Nerves: CN's II-XI intact bilaterally Cognition: normal cognition Speech: speech normal Gait: normal gait Extrem Other: No calf swelling or or tenderness appreciated Psych Speech and Movement: speech and movement normal Attitude: cooperative Course Vital Signs Vital signs: Vital Signs Temperature 36.8 C 03/08/21 11:32 Pulse 85 03/08/21 11:32 Blood Pressure 121/74 03/08/21 11:32 Pulse Oximetry 97 03/08/21 11:32 Temperature 36.8 C 03/08/21 11:32 Temperature Source Temporal Artery Scan 03/08/21 11:32 Pulse 85 03/08/21 11:32 Respiratory Effort Incrsd Work of Breathing 03/08/21 11:40 Blood Pressure 121/74 03/08/21 11:32 Blood Pressure Position Sitting 03/08/21 11:32 Pulse Oximetry 97 03/08/21 11:32 Oxygen Delivery Method Nasal Cannula 03/08/21 11:32 Oxygen Flow Rate 3 03/08/21 11:32 Pain Level 2 03/08/21 11:32 Comment 03/08/21 11:32
[2021-03-08 12:42] LABS: Abs Immature Grans 0.03 10^3/uL (0.0-0.06); Absolute Basophil Count 0.06 10^3/uL (0.0-0.2); Absolute Lymphocyte Count 2.67 10^3/uL (1.2-3.4); Absolute Monocyte Count 0.87 10^3/uL (0.1-0.8); Absolute Neutrophil Count 4.49 10^3/uL (1.2-6.7); Basophils % 0.7; Eosinophils % 4.7; HCT 43.3 % (36.0-46.0); HGB 13.9 g/dL (11.2-15.7); Immature Grans % 0.4; Lymphocytes % 31.3; MCH 31.1 pg (27.0-33.0); MCHC 32.1 % (32.0-36.0); MCV 96.9 fL (80-95); MPV 10.2 fL (8.0-11.0); Monocytes % 10.2; Neutrophils % 52.7; Nucleated RBC 0 %; Platelet Count 295 10^3/uL (130-400); RBC 4.47 10^6/uL (3.93-5.22); RDW 12.8 % (11.7-14.6); RDW-SD 45.8 fL; WBC 8.52 10^3/uL (4.4-10.8)
--- OUTSIDE RECORDS SUMMARY | 2021-03-08 13:02 | XMS_ITS ---
:1945 Author Care Team Providers Name Role Phone GARIMA JUNE MD [employer] [phone] [facility] Primary Care Provider [phone] [facility] Primary Care Provider [phone] Allergies Code Code System Name Reaction Severity Status Onset NKDA ? Medications Name Status Start Date Stop Date ? ? Calcium 600 + D(3) Completed ? 09/23/2020 2 daily guaifenesin Completed ? 07/09/2019 1 tablet daily ipratropium 0.5 mg-albuterol 2.5 mg/2.5 mL solution for nebu lization Completed ? 07/09/2019 Inhale twice a day by inhalation route. levothyroxine 75 mcg tablet Active ? Not available Take 1 tablet every day by oral route. Mucinex Fast-Max DM Max Active ? Not avai lable prn multivitamin Active ? Not available 1 daily oxygen Active ? Not available 2L per min nc prednisone 10 mg tablet Active ? Not avai lable Take 4 tablets every day by oral route for 3 days, then take 3 tablets every day by oral route for 3 days, then take 2 tablets every day by oral route for 3 days, and then take 1 tablet every day by oral route for 3 days. ProAir HFA 90 mcg/actuation aerosol inhaler Active ? Not available Inhale 2 puffs every 4 hours by inhalation route as needed. Probiotic Active ? Not available daily trazodone 50 mg tablet Active ? Not avail able Take 1 tablet every day by oral route at bedtime. Trelegy Ellipta 100 mcg-62.5 mcg-25 mcg powder for inhalation Ac tive ? Not available Inhale 1 puff every day by inhalation route. Vitamin D3 25 mcg (1,000 unit) capsule Completed ? 09/23/2020 Take by oral route. Zithromax Z-Mehran 250 mg tablet Active ? No t available TAKE 2 TABLETS (500 MG) BY ORAL ROUTE O NCE DAILY FOR 1 DAY THEN 1 TABLET (250 MG) BY ORAL ROUTE ONCE DAILY FOR 4 DAYS Problems Name Status Onset Date Source ? Hypothyroidism Active 06/03/2019 ? Tobacco Dependence Syndrome Active 06/03/2019 ? Chronic Obstructive Lung Disease Active 06/03/2019 ? Xerostomia Active 06/03/2019 ? Diverticular Disease Active 06/03/2019 ? Psoriasis Active 06/03/2019 ? Actinic Keratosis Active 06/03/2019 ? Skin Lesion Active 06/03/2019 ? Osteopenia Active 06/03/2019 ? Tachycardia Active 06/03/2019 ? ESR Raised Active 06/03/2019 ? Elevated C-reactive Protein Active 06/03/2019 ? Abnormal Findings on Diagnostic Imaging of Active 06/03 ? Lung History of Anemia Active 06/03/2019 ? Fitting of Hearing Aid Active 06/03/2019 ? Procedures Date Name Performed by ? ? Cataract Surgery Information not avai lable 07/09/2019 CT, Chest, W/o Contrast Xray [facility] [address] [place], [place] [address] ([address]) 08/13/2019 LDCT, Chest, for Lung Cancer [facility]ray [facility] [address] [place], [place] [address] ([facility] [address]) 09/23/2020 LDCT, Chest, for Lung Cancer Xray [facility] [address] [place], [place] [address] ([address]) Results Lab Results Date Name Specimen Result Interpretation Description Value Range Status Address ? 07/09/2019 Alpha-1 ? No observation ? ? ? Antitrypsin (Aat) recorded. Mutation, Blood/tissue Past Encounters 09/23/2020 Chronic Obstructive Lung Disease; Tobacc o Dependence Syndrome Garima June MD: [address] [place] [address] Dr payton Lamb [address] [place] [phone], Ph. 02/26/2020 Chronic Obstructive Lung Disease Garima June MD: [address] [place] [address] Dr payton Lamb [address] [place] [phone], Ph. Social History Tobacco Smoking Status Former Smoker Notes: quit , smoked for 55 years 1 ppd Vaccine List Vaccine Type influenza, trivalent, adjuvanted 06/12/2019 pneumococcal conjugate PCV 13 04/28/2015 pneumococcal polysaccharide PPV23 08/05/2007 09/16/2015 Plan of Care Reminders Provider Appointments None ? ? recorded. Lab None ? ? recorded. Referral None ? ? recorded. Procedures None ? ? recorded. Surgeries None ? ? recorded. Imaging None ? ? recorded. Vitals 09/23/2020 11:30AM Office 30 Height 149.86 cm 02/26/2020 02:30PM Office 15 Height Weight BMI Blood Pressure 149.86 cm 45.9 kg 20.4 kg/m2 118/60 mm[Hg] 08/13/2019 10:15AM Office 30 Height Weight BMI Blood Pressure 149.86 cm 45.8 kg 20.4 kg/m2 110/70 mm[Hg] 07/09/2019 01:30PM Consult 45 Height Weight BMI Blood Pressure 149.86 cm 43 kg 19.1 kg/m2 117/62 mm[Hg]
[2021-03-08 13:05] LABS: Magnesium 2.1 mg/dL (1.8-2.4)
[2021-03-08 13:07] LABS: ALT 24 U/L (14-59); AST 15 U/L (15-37); Albumin 3.4 g/dL (3.4-5.0); Alkaline Phosphatase 72 U/L (46-116); Anion Gap 4.6 mmol/L (3-11); BUN 29 mg/dL (7-18); Bilirubin, Total 0.4 mg/dL (0.2-1.0); CO2 30.4 mmol/L (21.0-32.0); CREATININE 1.1 mg/dL (0.55-1.02); Calcium 9.5 mg/dL (8.5-10.1); Chloride 109 mmol/L (98-107); Estimated GFR 48.69 (mL/min/1.73m2); Glucose 106 mg/dL (74-106); Sodium 144 mmol/L (136-145); TSH (W/Ref FT4) 1.34 uIU/mL (0.36-3.74); Total Protein 6.7 g/dL (6.4-8.2)
[2021-03-08 13:08] LABS: Troponin I < 0.05 ng/mL (<0.06)
--- NOTE | 2021-03-08 14:12 | NUR.NOTE ---
referral to cm for pulomology
--- NOTE | 2021-03-09 11:22 | CMPROGNOTE_ITS ---
- If Service Date Differs Date of service: 03/09/21 Time of Service: 11:22 Care Management Progress Note Lisbeth is seen in the ED for symptoms of COPD. At the request of ED provider, CM coordinates a referral to [facility] Pulmonology.
== END 2021-03-08 14:20 | disposition home or self-care (01) ==
PROVIDERS: Emergency Provider Physician Assistant; PCP Nurse Practitioner Family
DX: J44.9 Chronic obstructive pulmonary disease, unspecified (principal); R53.83 Other fatigue; R05 Cough; Z99.81 Dependence on supplemental oxygen
CPT/HCPCS: 36415; 80053; 93005; 99284; 71046; 81003; 83735; 84443; 84484; 85025; 93010

== ENCOUNTER 2021-04-05 01:17 | Outpatient (CLI) | payer OTHER, SELFPAY ==
--- NOTE | 2021-04-05 08:30 | DI.CT_ITS ---
Exam(s) CT CHEST WO EXAM: CT CHEST WO CLINICAL HISTORY: f/u CT 07/2020 right nodules seen,R91.8. TECHNIQUE: Imaging protocol: Axial computed tomography images were obtained and coronal and sagittal reformatted images were created and reviewed. COMPARISON: CT CT CHEST LUNG CANCER SCREEN from 07/13/2020 FINDINGS: Tracheobronchial tree: Patent where visualized. Pulmonary parenchyma: No consolidation or dominant measurable mass. The lungs are hyperlucent and hyp erexpanded consistent with underlying COPD. There is a stable 4 mm nodule in the right lower lobe. No new pulmonary nodules are present. Mediastinum and Tati: No dominant adenopathy or fluid collection. Pleura: No effusion or pneumothorax. Heart: The heart is not dilated. Mild coronary artery calcification. No pericardial effusion. Aorta: Thoracic aorta non-dilated. Atherosclerosis. Upper abdomen: Unremarkable. Lymph nodes: Within normal limits. Soft tissues: Unremarkable. Bones:Within normal limits for the patient's age. IMPRESSION: Stable pulmonary nodule. In high risk patient, (history of smoking or other risk factors) a follow-u p CT scan in 12 months is recommended. RADIATION DOSE DELIVERED: 331.85mGy.cm Total DLP 331.85mGy.cm Total DLP DATA REPOSITORY: All CT scans at this facility are submitted to the National Radiology Data Registry (NRDR) Dose Index Registry (DIR) with the [employer] (ACR). RADIATION OPTIMIZATION: All CT scans at this facility use at least one of these dose optimization te chniques: automated exposure control; mA and/or kV adjustment per patient size (includes targeted exa ms where dose is matched to clinical indication); or iterative reconstruction.
== END 2021-04-05 01:37 ==
PROVIDERS: PCP Nurse Practitioner Family; Visit Provider Student in an Organized Health Care Education/Training Program
DX: R91.8 Other nonspecific abnormal finding of lung field (principal); R91.1 Solitary pulmonary nodule
CPT/HCPCS: 71250

== ENCOUNTER 2021-07-06 03:09 | Outpatient (CLI) | payer MEDICARE, SELFPAY ==
[2021-07-06] MEDS: Inhaler, Assist Device 1 EACH MC (14:19)
[2021-07-06] MEDS: Albuterol HFA 18 GM 200 PUFF INH IH (14:20)
--- NOTE | 2021-07-10 10:14 | W.PFT ---
Date of service: 07/06/21 Time of Service: 13:01 Pulmonary Function Test Result Requesting Provider Elyo Indications: Dyspnea, COPD Interpretation Spirometry: There is severe airflow limitation. There is a reduced FVC. There is no significant bronchodilator response Lung Volumes: There is significant hyperinflation and air trapping Diffusion Capacity: The diffusion is significantly reduced. Airway Pressure: Airways resistance is elevated Impression Severe airflow obstruction with air trapping and hyperinflation with a reduced diffusion. In the correct clinical context, this may represent COPD with emphysema. Clinical Correlation therefore is recommended.
== END 2021-07-06 03:10 | disposition home or self-care (01) ==
PROVIDERS: PCP Nurse Practitioner Family; Visit Provider Student in an Organized Health Care Education/Training Program
DX: J44.9 Chronic obstructive pulmonary disease, unspecified (principal); R06.09 Other forms of dyspnea; Z87.891 Personal history of nicotine dependence; R94.2 Abnormal results of pulmonary function studies
CPT/HCPCS: 94060; 94726; 94729

== ENCOUNTER 2021-09-11 01:28 | Outpatient (CLI) | payer MEDICARE, SELFPAY ==
--- NOTE | 2021-09-11 | DI.MAMMO_ITS ---
Exam(s) MAMMO SCREENING EXAM: MAMMO SCREENING CLINICAL HISTORY: SCREENING, Z12.31,Z12.39. TECHNIQUE: Bilateral full field digital CC and MLO mammographic images were obtained with 3D tomosyn thesis and utilizing computer aided detection (CAD). COMPARISON: Prior mammograms were reviewed, the most recent being December 2019. FINDINGS: There has been no significant change in the appearance and distribution of the fibroglandular tissue. There are no new spiculated masses nor malignant appearing microcalcification groups. No significant findings in immediate vicinity biopsy marker clip located in the right breast.. No ne w spiculated masses nor malignant-appearing microcalcification groups in either breast. There is a s kin mole on the left side again noted. There is no significant architectural distortion nor skin thickening-retraction. IMPRESSION: Stable benign findings. No radiographic evidence of malignancy. BI-RADS Category 2 - Benign Findings Breast Density - Category C - Heterogeneously dense Breast density Category C or D implies that the patient has dense breast tissue. Dense breast tissue can make it harder to find cancer on a mammogram. Dense breast tissue is also associated with an incr eased risk of breast cancer. This information about the result of the mammogram report was provided to the patient to raise their awareness. Use this report when you speak with the patient about their risks for breast cancer, which includes their family history. At that time, you may recommend additional screening tests (Ultrasoun d or MRI) as these tests may add significant information. A negative radiographic report should not delay biopsy if a dominant or clinically suspicious mass is present. Up to ten percent of cancers are not identified on mammography. A negative report may reinforce clinical impression. Adenosis and dense breasts may obscure an underlying neoplasm. False positive reports average 6 to 10%. Patient will receive a letter notifying them of these results.
== END 2021-09-11 01:48 ==
PROVIDERS: PCP Nurse Practitioner Family; Visit Provider Nurse Practitioner Family
DX: Z12.31 Encounter for screening mammogram for malignant neoplasm of breast (principal)
CPT/HCPCS: 77063; 77067

== ENCOUNTER → 2022-01-12 00:12 | Outpatient (CLI) | payer MEDICARE, SELFPAY ==
--- NOTE | 2022-01-12 13:00 | DI.US_ITS ---
Exam(s) US SOFT TISS ABD WALL/LOW BACK EXAM: US SOFT TISS ABD WALL/LOW BACK CLINICAL HISTORY: LIPOMA, D17.9, LT ANTERIOR AREA; F/U 12/29/2020 US. TECHNIQUE: Ultrasound was performed using standard protocol. COMPARISON: No exams were available for comparison FINDINGS: Sonographic assessment utilizing grayscale and color Doppler imaging was performed and targeted to th e area of clinical concern. There are at least 3 well-circumscribed solid ovoid hyperechoic masses in the subcutaneous tissues of the anterior left chest wall. The largest measures 5.1 x 2 x 5.2 cm. The others that are documente d measure 2.9 x 1.1 x 2.9 cm and 1.6 x 0.9 x 1.8 cm. Sonographically these are most consistent with lipomas. IMPRESSION: Findings consistent with subcutaneous lipomas. The largest measures 5.1 x 2 x 5.2 cm. DATA REPOSITORY:
== END ==
PROVIDERS: PCP Nurse Practitioner Family; Visit Provider Nurse Practitioner Family
DX: R22.2 Localized swelling, mass and lump, trunk (principal); D17.1 Benign lipomatous neoplasm of skin and subcutaneous tissue of trunk
CPT/HCPCS: 76705

== ENCOUNTER 2022-04-30 13:22 | Outpatient (REF) | payer MEDICARE, SELFPAY ==
[2022-04-30 16:35] LABS: Anion Gap 9.4 mmol/L (3-11); BUN 21 mg/dL (7-18); CO2 27.6 mmol/L (21.0-32.0); Calcium 9.5 mg/dL (8.5-10.1); Chloride 106 mmol/L (98-107); Estimated GFR 59.12 (mL/min/1.73m2); Glucose 92 mg/dL (74-106); Sodium 143 mmol/L (136-145)
== END 2022-04-30 13:23 | disposition home or self-care (01) ==
LOC: NCHCN 13:22
PROVIDERS: PCP Nurse Practitioner Family; Visit Provider Nurse Practitioner Family
DX: E03.9 Hypothyroidism, unspecified (principal); N18.9 Chronic kidney disease, unspecified
CPT/HCPCS: 80048; 84443

== ENCOUNTER → 2022-05-02 01:55 | Outpatient (CLI) | payer MEDICARE, SELFPAY ==
--- NOTE | 2022-05-02 08:00 | DI.CTLCSR_ITS ---
Exam(s) CT CHEST LUNG CANCER SCREEN EXAM: CT CHEST LUNG CANCER SCREEN CLINICAL HISTORY: Screening for lung cancer,former smoker, z87.891 TECHNIQUE: CT examination of the chest was performed utilizing low-dose lung cancer screening protoc ol. COMPARISON: CT CT CHEST WO from 04/05/2021 FINDINGS: Images obtained through the upper abdomen show unremarkable appearance of visualized portions of the liver, spleen, pancreas, adrenals, and kidneys.. Note is made of coronary artery calcification. There is no mediastinal or hilar adenopathy. Mediastinal vascular structures appear intact by noncon trast criteria. Tracheobronchial tree appears intact. There is new area triangular shaped increased radiodensity measuring up to about 2.6 cm in diameter a ssociated with the inner lobar fissure on the left, adjacent to the left cardiac border. This may re present an area of atelectasis or consolidation period possibility of underlying pulmonary mass not e xcluded. These findings were not present on prior CT examination of April 2021. Follow-up CT re commended in 6-8 weeks to evaluate the persistence of this finding. No other significant intrapulmonary mass or nodule Identified. IMPRESSION: New finding of indeterminate radiodensity associated with inner lobar fissure on the left, possibilit y of underlying mass not excluded although this may represent an area of atelectasis or consolidation . Follow-up chest CT recommended in 6-8 weeks, if the findings do not resolve, additional evaluation would be recommended. Lung RADS Cat 4A - Suspicious: Findings for which additional diagnostic testing and/or tissue samplin g recommended Lung-RADS 1.0 CATEGORIES: Category 0 - Prior chest CT exam(s) being located for comparison. Category 1 - Annual screening in 12 months. No nodules or definitely benign nodules. Category 2 - Annual screening in 12 months. Benign appearance. Nodules with low likelihood of becomin g active cancer. Category 3 - 6-month follow-up. Probably benign. Short-term follow-up suggested. Nodules with low lik elihood of becoming active cancer. Category 4A - 3-month follow-up and CT/PET if >8 mm in size. Suspicious finding. Findings which requi re additional testing. Category 4B - Findings which require additional testing and tissue sampling. Suspicious finding. Category 4X - Category 3 or 4 nodules with additional features or imaging findings that increases the suspicion of malignancy. Modifier S- Potentially clinically significant finding. (Non lung cancer) RADIATION DOSE DELIVERED: 72.53mGy.cmTotal DLP 1.84mGy CTDIvol 72.53mGy.cm Total DLP !Error CTDIvol DATA REPOSITORY: All CT scans at this facility are submitted to the National Radiology Data Registry (NRDR) Dose Index Registry (DIR) with the [employer] (ACR). RADIATION OPTIMIZATION: All CT scans at this facility use at least one of these dose optimization te chniques: automated exposure control; mA and/or kV adjustment per patient size (includes targeted exa ms where dose is matched to clinical indication); or iterative reconstruction.
== END ==
PROVIDERS: PCP Nurse Practitioner Family; Visit Provider Student in an Organized Health Care Education/Training Program
DX: Z87.891 Personal history of nicotine dependence (principal); Z12.2 Encounter for screening for malignant neoplasm of respiratory organs; R91.8 Other nonspecific abnormal finding of lung field
CPT/HCPCS: 71271

== ENCOUNTER → 2022-06-18 01:33 | Outpatient (CLI) | payer MEDICARE, SELFPAY ==
--- NOTE | 2022-06-18 07:35 | DI.CT_ITS ---
Exam(s) CT CHEST WO EXAM: CT CHEST WO CLINICAL HISTORY: f/u new radiodensity EDDIE,multiple pulmonary nodules,r91.8 TECHNIQUE: Imaging Protocol: Axial computed tomography images with coronal and sagittal reformatted images were created and reviewed CONTRAST MATERIAL: Noncontrast. COMPARISON: CT CT CHEST LUNG CANCER SCREEN from 05/02/2022 FINDINGS: Tracheobronchial tree: No bronchiectasis or mucous plugging. Mediastinum and Tati: No dominant adenopathy or fluid collection. Pulmonary parenchyma: Severe emphysematous changes, greater in the upper lobes. Stable triangular ar ea atelectasis in the lingula, adjacent to the heart border. No mass is visible. Pleura: No effusion or pneumothorax. Heart: The heart is not dilated. Mild coronary artery calcifications are seen. Aorta: Thoracic aorta non-dilated. Mild atherosclerotic changes. Upper abdomen: Unremarkable. Lymph nodes: Within normal limits. Bones: Milddegenerative changes. Soft tissues: Unremarkable. IMPRESSION: Stable area atelectasis in the lingula, adjacent to the fissure. No visible mass. RADIATION DOSE DELIVERED: 345.22mGy.cm Total DLP DATA REPOSITORY: All CT scans at this facility are submitted to the National Radiology Data Registry (NRDR) Dose Index Registry (DIR) with the [employer] (ACR). RADIATION OPTIMIZATION: All CT scans at this facility use at least one of these dose optimization te chniques: automated exposure control; mA and/or kV adjustment per patient size (includes targeted exa ms where dose is matched to clinical indication); or iterative reconstruction.
== END ==
PROVIDERS: PCP Nurse Practitioner Family; Visit Provider Student in an Organized Health Care Education/Training Program
DX: R91.8 Other nonspecific abnormal finding of lung field (principal); J98.11 Atelectasis
CPT/HCPCS: 71250

== ENCOUNTER 2022-09-27 00:43 | Outpatient (CLI) | payer MEDICARE, SELFPAY ==
--- NOTE | 2022-09-27 | DI.DEXA_ITS ---
Exam(s) XR DEXA BONE DENSITY W/WO KAYLEY EXAM: XR DEXA BONE DENSITY W/WO KAYLEY CLINICAL HISTORY: OSTEOPENIA, M85.80, POSTMENOPAUSAL STATUS, Z78.0 TECHNIQUE: COMPARISON: No exams were available for comparison FINDINGS: Lateral Spine Image: Unremarkable. No compression deformities identified. Left hip: Total T-Score: -2.0 Total Z-Score: -0.2 T- and Z-scores: Findings are consistent with osteopenia. Lumbar Spine: Total T-Score: -1.5 Total Z-Score: 0.9 T- and Z-scores: Findings are consistent with osteopenia. IMPRESSION: Osteopenia in the lumbar spine and left hip.
--- NOTE | 2022-09-27 | DI.MAMMO_ITS ---
Exam(s) MAMMO SCREENING EXAM: MAMMO SCREENING CLINICAL HISTORY: SCREENING, Z12.31 TECHNIQUE: Bilateral full field digital CC and MLO mammographic images were obtained with 3D tomosyn thesis and utilizing computer aided detection (CAD). COMPARISON: Available for comparison. FINDINGS: Masses/Architectural Distortion: None seen. Microcalcifications: No suspicious pleomorphic-type are seen. Skin Thickening/Nipple Retraction: None. IMPRESSION: 1. No significant interval change with no specific features of malignancy noted. 2. Unless there is more urgent need, screening mammography is recommended, as per [employer] guidelines. BI-RADS Category 1 - Negative Breast Density - Category C - Heterogeneously dense Breast density category C or D implies that the patient has dense breast tissue. Dense breast tissue is very common and is not abnormal but dense breast tissue can make it harder to find cancer on a ma mmogram. Also, dense breast tissue may increase their breast cancer risk. This information about the result of the mammogram report was provided to the patient to raise their awareness. Use this report when you speak with the patient about their risks for breast cancer, which includes their family hist ory. At that time, you may recommend for more screening tests (Ultrasound or MRI) as they might be us eful based on their risk. A negative radiographic report should not delay biopsy if a dominant or clinically suspicious mass is present. Up to ten percent of cancers are not identified on mammography. A negative report may reinforce clinical impression. Adenosis and dense breasts may obscure an underlying neoplasm. False positive reports average 6 to 10%. Patient will receive a letter notifying them of these results.
== END 2022-09-27 01:03 ==
LOC: DI 00:43
PROVIDERS: PCP Nurse Practitioner Family; Visit Provider Nurse Practitioner Family
DX: Z12.31 Encounter for screening mammogram for malignant neoplasm of breast (principal); Z78.0 Asymptomatic menopausal state; M85.88 Other specified disorders of bone density and structure, other site
CPT/HCPCS: 77063; 77067; 77080

== ENCOUNTER 2022-10-14 19:23 | Emergency (ER) | payer MEDICARE, SELFPAY ==
[2022-10-14 19:28] VITALS: BP 102/59; PULSE 91; RESP 20; TEMP 36.4; O2SAT 98
--- NOTE | 2022-10-14 19:39 | DI.CT_ITS ---
Exam(s) CT ABDOMEN PELVIS WO/W EXAM: CT ABDOMEN PELVIS WO/W CLINICAL HISTORY: left flank pain, hematuria TECHNIQUE: Imaging Protocol: Axial computed tomography images with coronal and sagittal reformatted images were created and reviewed CONTRAST MATERIAL: Intravenous: Omnipaque 350 Contrast volume:75 mL Oral: No COMPARISON: CT CT CHEST PE CTA from 11/22/2018 FINDINGS: ABDOMEN: Lung Bases: Normal where visualized. Liver: Normal density. No measurable mass. Portal, Superior Mesenteric, and Splenic Veins: Unremarkable. Gallbladder and Biliary Tract: No radiodense calculus or dilation. Pancreas: Normal density, no abnormal calcifications or inflammatory process. Spleen: Normal. Adrenals: No masses seen. Kidneys: Normal size, contour and axis. No evidence of nephrolithiasis. There is a 2 mm stone seen i n the urinary bladder. There is dilatation of the left renal collecting system and mild perinephric stranding. This may represent a recently passed stone. No masses seen. Abdominal Aorta: Abdominal portion non-dilated. Atherosclerosis is present. Bowel: No obstruction or bowel wall thickening. There is diverticulosis seen in the colon but no evid ence of acute diverticulitis. No evidence of appendicitis. Peritoneal Cavity: No ascites, collection or mesenteric inflammatory response. No free air. Lymph Nodes: Within normal limits. Bones: Within normal limits for the patient's age. There is a left convex scoliosis. Soft Tissues: Unremarkable. PELVIS: Bladder: Symmetric distention, no gross wall thickening. There is a 2 mm stone in the dependent porti on of the urinary bladder. Reproductive Organs: Unremarkable as visualized. Lymph Nodes: Within normal limits. Bones: Within normal limits for the patient's age. IMPRESSION: Moderate left hydronephrosis. There is a 2-3 mm stone in the dependent portion of the urinary bladde r which likely reflects a recently passed stone from the left renal collecting system. RADIATION DOSE DELIVERED: 1,912.66mGy.cm Total DLP 1,912.66mGy.cm Total DLP DATA REPOSITORY: All CT scans at this facility are submitted to the National Radiology Data Registry (NRDR) Dose Index Registry (DIR) with the [employer] (ACR). RADIATION OPTIMIZATION: All CT scans at this facility use at least one of these dose optimization te chniques: automated exposure control; mA and/or kV adjustment per patient size (includes targeted exa ms where dose is matched to clinical indication); or iterative reconstruction.
--- NOTE | 2022-10-14 19:40 | ED.GENADUL_ITS ---
Discharge Plan Discharge Details Chief Complaint: Urinary Primary Care Provider: Irma Sweeney ED Provider: Lincoln Tineo Home Meds and New Rx's Prescriptions: No Action melatonin 3 mg capsule 9 mg PO HS PRN levothyroxine 75 mcg capsule 75 mcg PO DAILY gabapentin 100 mg capsule 200 mg PO QHS Qty: 30 3RF mirtazapine 7.5 mg tablet 7.5 mg PO QHS trazodone 50 mg tablet 150 mg PO HS (DME) Oxygen Tank See Rx Instructions .ROUTE .MEDSUPPLY Qty: 1 Rx Instructions: portable concentrator setting #3 Trelegy Ellipta 100-62.5-25 mcg blister with device 1 inh IH DAILY Qty: 3 12RF Rx Instructions: Provide 3 month supply please albuterol sulfate [ProAir HFA] 90 mcg/actuation HFA aerosol inhaler 2 inh Inhalation Q4H PRN PRN (Reason: shortness of breath or wheezing) Qty: 8.5 12RF azithromycin 250 mg tablet 250 mg PO DAILY Qty: 90 8RF acetylcysteine 600 mg capsule See Rx Instructions .ROUTE .COMPLEX Qty: 180 12RF Dose Instruction: TAKE 1 CAPSULE BY MOUTH TWICE DAILY FOR COPD Rx Instructions: TAKE 1 CAPSULE BY MOUTH TWICE DAILY FOR COPD multivitamin [Daily Multiple] 1 EACH tablet 1 ea PO DAILY Probiotic and Acidophilus 300-250 million cell-mg Capsule 1 cap PO DAILY guaifenesin [Mucinex] 600 mg Tablet Extended Release 12hr 600 mg PO BID PRN PRN (Reason: cough) Qty: 30 0RF Medical Decision Making 77-year-old female presents with left flank pain and hematuria over the past 3 days. Resting comfortably hemodynamically stable afebrile. Denies fevers or chills nausea or vomiting. Denies history of abdominal surgery. Normal bowel movement within the last 2 days. Nontoxic well-appearing. Consider UTI versus kidney stone versus less likely pyelonephritis must also consider given age pelvic malignancy. Screening labs CT abdomen pelvis with contrast patient does not want any analgesia at this time disposition pending results and imaging HPI General Date/Time Provider Initiated Documentation: 10/14/22 19:26 . HPI Narrative: 77-year-old female presents with left flank discomfort and hematuria over the past several days, blood-tinged urine multiple times over the last 3 days. Den ies fevers or chills nausea or vomiting. Denies history of abdominal surgery. Denies history of kidney stone Related Data Home Medications Medication Instructions Recorded Confirmed multivitamin (Daily Multiple 1 ea PO DAILY 10/15/17 10/14/22 tablet) Lactobacillus comb 1 cap PO DAILY 11/22/18 10/14/22 [id number] 300 million cell-250 mg capsule (Probiotic and Acidophilus) guaifenesin 600 mg tablet, 600 mg PO BID PRN PRN cough #30 11/27/18 10/14/22 extended release 12 hr (Mucinex) tabs albuterol sulfate 90 mcg/actuation 2 inh inhalation Q4H PRN PRN 08/25/21 10/14/22 aerosol inhaler (ProAir HFA) shortness of breath or wheezing #8.5 grams levothyroxine 75 mcg capsule 75 mcg PO DAILY 10/20/21 10/14/22 melatonin 3 mg capsule 9 mg PO HS PRN 10/20/21 10/14/22 Oxygen #1 ea 01/25/22 10/14/22 gabapentin 100 mg capsule 200 mg PO QHS #30 caps 01/25/22 10/14/22 mirtazapine 7.5 mg tablet 7.5 mg PO QHS 01/25/22 10/14/22 trazodone 50 mg tablet 150 mg PO HS 01/25/22 10/14/22 fluticasone fur. 100 mcg-umeclid 1 inh inhalation DAILY #3 ea 06/20/22 10/14/22 62.5 mcg-vilant 25 mcg inhalat.powder (Trelegy Ellipta) azithromycin 250 mg tablet 250 mg PO DAILY COPD #90 tabs 07/31/22 10/14/22 acetylcysteine 600 mg capsule See Rx Instructions .Route 10/05/22 10/14/22 .COMPLEX #180 caps Previous Rx's Medication Instructions Recorded guaifenesin 600 mg tablet, 600 mg PO BID PRN PRN cough #30 11/27/18 extended release 12 hr (Mucinex) tabs albuterol sulfate 90 mcg/actuation 2 inh inhalation Q4H PRN PRN 08/25/21 aerosol inhaler (ProAir HFA) shortness of breath or wheezing #8.5 grams gabapentin 100 mg capsule 200 mg PO QHS #30 caps 01/25/22 fluticasone fur. 100 mcg-umeclid 1 inh inhalation DAILY #3 ea 06/20/22 62.5 mcg-vilant 25 mcg inhalat.powder (Trelegy Ellipta) azithromycin 250 mg tablet 250 mg PO DAILY COPD #90 tabs 07/31/22 acetylcysteine 600 mg capsule See Rx Instructions .Route 10/05/22 .COMPLEX #180 caps Allergies Allergy/AdvReac Type Severity Reaction Status Date / Time No Known Allergies Allergy Verified 10/14/22 19:39 General Stated Complaint: Urinary OLIVIER: 3 Review of Systems Narrative: Review of Systems Constitutional: negative Eyes: negative ENT: negative Cardiovascular: negative Respiratory: negative Gastrointestinal: negative : Hematuria Musculoskeletal: negative Skin: negative Neurologic: negative Psych: negative PFSH All Active Problems Impacted cerumen, left ear (Acute) Respiratory failure with hypoxia (Acute) Insomnia (Acute) Elevated C-reactive protein (CRP) (Acute) Anemia (Chronic) Polyarthralgia (Acute) Constipation (Acute) Sleep disturbance (Acute) Basal cell carcinoma (Acute) 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) Fatigue (Acute) Chronic kidney disease (Chronic) Sensorineural hearing loss, bilateral (Acute) Conductive hearing loss, external ear (Acute) Impacted cerumen, bilateral (Acute) COPD (chronic obstructive pulmonary disease) (Chronic) Hx of tonsillectomy (Chronic) Diverticulosis (Acute) Psoriasis (Chronic) Pulmonary nodules (Acute) Macrocytic anemia (Acute) DVT prophylaxis (Acute) Discharge planning issues (Acute) Adrenal insufficiency (Acute) HCAP (healthcare-associated pneumonia) (Acute) COPD exacerbation (Acute) Pneumonia (Acute) Colon cancer screening (Acute) Medical History COPD (chronic obstructive pulmonary disease) Diverticulosis History of tobacco abuse Hypothyroid Osteopenia Surgical History Colonoscopy - MAC (06/22/16) Family History Father No problems noted. 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 What is your relationship status?: Panel score (0-1 are the most socially isolated patients): 1 Do you feel safe at home: Yes Do you feel safe in your relationship?: Yes Exam Narrative Exam Narrative: Physical Examination General: alert, awake, cooperative, resting comfortably, no acute distress HEENT: normocephalic, atraumatic; PERRL, EOM intact, conjunctiva normal; no nasal discharge; moist mucous membranes, oral and pharyngeal mucosa normal, tolerating secretions Neck: supple, trachea midline; full ROM Chest: normal to inspection Respiratory: normal respiratory effort, speaking in full sentences, clear to auscultation, no wheezing, rales or rhonchi Cardiac: regular rate, regular rhythm, S1S2 intact, no murmurs rubs or gallops GI: abdomen soft, non-tender, non-distended; no palpable mass or hepatosplenomegaly Skin: no lesions, rashes or trauma appreciated Neuro: AAOx3, normal speech, moving all extremities Psych: Appropriate mood and affect Course Vital Signs Vital signs: Vital Signs Temperature 36.4 C 10/14/22 19:28 Pulse 91 H 10/14/22 19:28 Respiratory Rate 20 10/14/22 19:28 Blood Pressure 102/59 L 10/14/22 19:28 Pulse Oximetry 98 10/14/22 19:28 Temperature 36.4 C 10/14/22 19:28 Temperature Source Oral 10/14/22 19:28 Pulse 91 H 10/14/22 19:28 Respiratory Rate 20 10/14/22 19:28 Respiratory Effort Normal 10/14/22 19:36 Blood Pressure 102/59 L 10/14/22 19:28 Blood Pressure Position Supine 10/14/22 19:28 Pulse Oximetry 98 10/14/22 19:28 Oxygen Delivery Method Nasal Cannula 10/14/22 19:28 Oxygen Flow Rate 3 10/14/22 19:28 Pain Level 5 10/14/22 19:36
[2022-10-14 19:50] LABS: Abs Immature Grans 0.05 10^3/uL (0.0-0.06); Absolute Basophil Count 0.07 10^3/uL (0.0-0.2); Absolute Eosinophil Count 0.45 10^3/uL (0.0-0.7); Absolute Lymphocyte Count 2.32 10^3/uL (1.2-3.4); Absolute Neutrophil Count 10.52 10^3/uL (1.2-6.7); Basophils % 0.5; Eosinophils % 3.1; HCT 41.2 % (36.0-46.0); HGB 13.7 g/dL (11.2-15.7); Immature Grans % 0.3; Lymphocytes % 15.9; MCH 31.4 pg (27.0-33.0); MCHC 33.3 % (32.0-36.0); MCV 95 fL (80-95); MPV 10.3 fL (8.0-11.0); Monocytes % 8.2; Platelet Count 310 10^3/uL (130-400); RBC 4.36 10^6/uL (3.93-5.22); WBC 14.61 10^3/uL (4.4-10.8)
[2022-10-14 19:59] LABS: Bilirubin Negative (Negative); Blood Large (Negative); Clarity Clear (Clear); Glucose Negative (Negative); Ketones Negative (Negative); Leukocyte Esterase Negative (Negative); Nitrite Negative (Negative); Specific Gravity 1.025 (1.005-1.025); Urobilinogen 0.2 mg/dL (Up to 0.2); pH 5.5 (5-8)
[2022-10-14 20:05] LABS: ALT 25 U/L (14-59); AST 23 U/L (15-37); Albumin 3.5 g/dL (3.4-5.0); Alkaline Phosphatase 86 U/L (46-116); Anion Gap 12.3 mmol/L (3-11); BUN 23 mg/dL (7-18); Bilirubin, Total 0.4 mg/dL (0.2-1.0); CO2 21.7 mmol/L (21.0-32.0); CREATININE 1.2 mg/dL (0.55-1.02); Calcium 9.6 mg/dL (8.5-10.1); Chloride 109 mmol/L (98-107); Estimated GFR 47.21 (mL/min/1.73m2); Glucose 119 mg/dL (74-106); Potassium 4.1 mmol/L (3.5-5.1); Sodium 143 mmol/L (136-145)
[2022-10-14] MEDS: Normal Saline 250 ML IV (20:12)
[2022-10-14 20:13] LABS: Bacteria Negative HPF (Negative); C & S Indicated? No; Casts Negative LPF (Negative); Crystals Negative HPF (Negative); Epithelial Cells Rare HPF (Negative); Mucus Negative (Negative); Other Cells Negative (Negative); RBC >50 HPF (0-2); WBC 0-2 HPF (0-5)
--- NOTE | 2022-10-14 20:17 | W.EDPROG ---
Date of service: 10/14/22 Time of Service: 20:18 Medical Decision Making I received signout on this 77-year-old female with left-sided flank pain. She is pending a CT urogram. She has no history of recent dysuria nor frequency. No history of ureterolithiasis in the past. Urinalysis significant for hematuria. 9:[address] patient was found to have moderate left perinephric stranding with mild left pelvicaliectasis and ureterectasis and a 3 mm stone in the urinary bladder which likely recently passed from the left ureter. I met with the patient. She continued having no pain. She denied any nausea and vomiting. As result I felt that the patient was appropriate for an empiric trial of expectant outpatient management with primary care follow-up and return indications including any nausea vomiting or any fevers. She understood her return indications and discharge. Sign Out Sign Out Data: Sign Out Comment: left flank pain, hematuria; consider kidney stone v uti v early pyelo v pelvic malignancy? pending labs and imaging Last updated by Lincoln Tineo MD at 10/14/22 19:57 Discharge Plan Disposition Patient Disposition: Home Discharge Details Clinical Impression: Pelvicaliectasis, Ureterectasis, Kidney stone Primary Care Provider: Irma Sweeney ED Provider: Rj Mendez Home Meds and New Rx's Prescriptions: Continued melatonin 3 mg capsule 9 mg PO HS PRN levothyroxine 75 mcg capsule 75 mcg PO DAILY gabapentin 100 mg capsule 200 mg PO QHS Qty: 30 3RF mirtazapine 7.5 mg tablet 7.5 mg PO QHS trazodone 50 mg tablet 150 mg PO HS (DME) Oxygen Tank See Rx Instructions .ROUTE .MEDSUPPLY Qty: 1 Rx Instructions: portable concentrator setting #3 Trelegy Ellipta 100-62.5-25 mcg blister with device 1 inh IH DAILY Qty: 3 12RF Rx Instructions: Provide 3 month supply please albuterol sulfate [ProAir HFA] 90 mcg/actuation HFA aerosol inhaler 2 inh Inhalation Q4H PRN PRN (Reason: shortness of breath or wheezing) Qty: 8.5 12RF azithromycin 250 mg tablet 250 mg PO DAILY Qty: 90 8RF acetylcysteine 600 mg capsule See Rx Instructions .ROUTE .COMPLEX Qty: 180 12RF Dose Instruction: TAKE 1 CAPSULE BY MOUTH TWICE DAILY FOR COPD Rx Instructions: TAKE 1 CAPSULE BY MOUTH TWICE DAILY FOR COPD multivitamin [Daily Multiple] 1 EACH tablet 1 ea PO DAILY Probiotic and Acidophilus 300-250 million cell-mg Capsule 1 cap PO DAILY guaifenesin [Mucinex] 600 mg Tablet Extended Release 12hr 600 mg PO BID PRN PRN (Reason: cough) Qty: 30 0RF Discharge Instructions Instructions: Kidney Stones (ED) Additional Instructions: Please read all of the information that accompanies these instructions. You were seen in the emergency department for your flank pain. You had a kidney stone which has passed into your bladder. Please take pain medications as below as you may experience slight increased pain as the kidney stone leaves your bladder for your urethra. Please schedule an appointment with your primary care provider later this week. Please return to the emergency department if you develop fevers cannot eat or drink or if you have any worsening pain. For your pain please take medications as follows: 1. Take acetaminophen (Tylenol), 1,000 mg (two 500 mg tabs) every 6 hours
[2022-10-14] MEDS: Omnipaque 350 MG/ML 100 ML BTL IJ (20:26)
[2022-10-14] MEDS: Normal Saline - Diluent 50 ML VIAL IJ (20:26)
--- NOTE | 2022-10-14 21:23 | DI.VRAD_ITS ---
PROCEDURE INFORMATION: Exam: CT Abdomen And Pelvis Without And With Contrast; Urography Exam date and time: 10/14/2022 8:23 PM Age: 77 years old Clinical indication: Abdominal pain; Left; Patient HX: L flank pain, hematuria TECHNIQUE: Imaging protocol: Computed tomography of the abdomen and pelvis without and with intravenous contrast. Exam focused on the kidneys and ureters. COMPARISON: US SOFT TISS ABD WALL/LOW BACK 01/12/2022 1:03 PM FINDINGS: Kidneys and ureters: There is mild left pelvicaliectasis and ureterectasis, with no ureteral stones present currently. There is a 3 mm stone in the dependent urinary bladder which likely recently passed from the left ureter. There is moderate left perinephric stranding. The right kidney and right collecting system are unremarkable. Urinary bladder: Urinary bladder is otherwise unremarkable. Lungs: Mild-moderate emphysematous changes in the visualized lung bases. Mild bandlike atelectasis or fibrosis in the peripheral left lung base. Heart: Heart size normal. Mild coronary artery calcification in the RCA distribution. Mediastinal space: The visualized distal esophagus is largely contracted without gross abnormality. Liver: Normal contour. No mass lesions. No intrahepatic biliary ductal dilatation. Gallbladder and bile ducts: Gallbladder is moderately distended but otherwise unremarkable. Common bile duct is nondilated for patient's age. Pancreas: Mild pancreatic atrophy without acute abnormality. No pancreatic ductal dilatation. Spleen: Normal. No splenomegaly. Adrenals: Normal. No adrenal mass. Stomach and bowel: The stomach is largely contracted. The small bowel is nondilated with no gross abnormality. No acute colonic abnormalities. Moderate proximal colonic stool.Mild diverticulosis involving the distal colon without evidence of acute diverticulitis. Appendix: The appendix is normal in caliber and demonstrates no evidence of appendicitis. Intraperitoneal space: No free fluid or air. Lymph nodes: No adenopathy. Vasculature: No acute process. No abdominal aortic aneurysm. Moderate calcific atherosclerosis. Reproductive: Unremarkable as visualized. Bones/joints: No acute osseous abnormalities. Moderate leftward convexity lumbar scoliosis. Mild-moderate disc space narrowing L4-L5. Soft tissues: Very small fatty umbilical hernia . No evidence of associated bowel herniation or strangulation. IMPRESSION: 1. There is moderate left perinephric stranding with mild left pelvicaliectasis and ureterectasis and a 3 mm stone in the urinary bladder which likely recently passed from the left ureter. 2. Additional nonemergent findings detailed above. Dictated and Authenticated by: Rj Guzman MD. Ordering:PBARBER Stark MD
[2022-10-14 21:39] VITALS: BP 117/58; PULSE 82; RESP 22; O2SAT 96
== END 2022-10-14 21:40 | disposition home or self-care (01) ==
PROVIDERS: Emergency Medicine; Emergency Provider Emergency Medicine; PCP Nurse Practitioner Family
DX: N20.0 Calculus of kidney (principal); N13.4 Hydroureter; J44.9 Chronic obstructive pulmonary disease, unspecified; E06.9 Thyroiditis, unspecified; Z79.51 Long term (current) use of inhaled steroids
CPT/HCPCS: 36415; 80053; 96360; 99285; 74178; 81003; 81015; 85025; 99284; J3490

== ENCOUNTER 2023-04-15 17:47 | Outpatient (REF) | payer MEDICARE, SELFPAY ==
[2023-04-15 15:43] LABS: Abs Immature Grans 0.03 10^3/uL (0.0-0.06); Absolute Basophil Count 0.05 10^3/uL (0.0-0.2); Absolute Eosinophil Count 0.46 10^3/uL (0.0-0.7); Absolute Lymphocyte Count 3.06 10^3/uL (1.2-3.4); Absolute Monocyte Count 0.56 10^3/uL (0.1-0.8); Absolute Neutrophil Count 4.33 10^3/uL (1.2-6.7); Basophils % 0.6; Eosinophils % 5.4; HCT 41.5 % (36.0-46.0); HGB 13.5 g/dL (11.2-15.7); Immature Grans % 0.4; MCH 31.4 pg (27.0-33.0); MCHC 32.5 % (32.0-36.0); MCV 97 fL (80-95); MPV 10.2 fL (8.0-11.0); Monocytes % 6.6; Platelet Count 318 10^3/uL (130-400); RDW 13.1 % (11.7-14.6); RDW-SD 46.2 fL; WBC 8.49 10^3/uL (4.4-10.8)
[2023-04-15 16:02] LABS: ALT 26 U/L (14-59); AST 26 U/L (15-37); Alkaline Phosphatase 77 U/L (46-116); Anion Gap 9.8 mmol/L (3-11); BUN 18 mg/dL (7-18); Bilirubin, Total 0.4 mg/dL (0.2-1.0); CO2 23.2 mmol/L (21.0-32.0); Calcium 8.8 mg/dL (8.5-10.1); Calculated LDL 182 mg/dL (<100); Chloride 109 mmol/L (98-107); Cholesterol 283 mg/dL (<200); Estimated GFR 58.75 (mL/min/1.73m2); Glucose 123 mg/dL (74-106); HDL Cholesterol 70 mg/dL (40-60); Potassium 3.3 mmol/L (3.5-5.1); Sodium 142 mmol/L (136-145); TSH 1.17 uIU/mL (0.36-3.74); Total Protein 6.7 g/dL (6.4-8.2); Triglyceride 158 mg/dL (<150)
[2023-04-15 17:08] LABS: Hemoglobin A1C 5.2 % (<5.7); Vitamin D 25 Total 54.6 ng/mL (30-100)
== END 2023-04-15 17:48 | disposition home or self-care (01) ==
LOC: NCHCN 17:47
PROVIDERS: PCP Nurse Practitioner Family; Visit Provider Nurse Practitioner Family
DX: E03.9 Hypothyroidism, unspecified (principal); N18.9 Chronic kidney disease, unspecified; R79.89 Other specified abnormal findings of blood chemistry; M85.88 Other specified disorders of bone density and structure, other site
CPT/HCPCS: 80053; 80061; 82306; 83036; 84443; 85025

== ENCOUNTER → 2023-04-24 01:09 | Outpatient (CLI) | payer MEDICARE, SELFPAY ==
--- NOTE | 2023-04-24 14:28 | DI.US_ITS ---
Exam(s) US SOFT TISS ABD WALL/LOW BACK EXAM: US SOFT TISS ABD WALL/LOW BACK CLINICAL HISTORY: MONITOR SIZE LIPOMA LT ANTERIOR ABDOMINAL WALL, PAIN WITH PALPATION. TECHNIQUE: Ultrasound was performed using standard protocol. COMPARISON: No exams were available for comparison FINDINGS: Sonographic assessment utilizing grayscale and color Doppler imaging was performed and targeted to th e area of clinical concern anterior abdominal wall. Multiple lipomas are noted in the anterior abdominal wall the largest measuring 5.8 cm in greatest di mension. Multiple other smaller lipomas are seen. Multiple new lipomas were identified in the left abdominal wall ranging in size from 1.7-3.7 cm.. IMPRESSION: Multiple lipomas. No suspicious features noted by ultrasound.. DATA REPOSITORY:
== END ==
PROVIDERS: PCP Nurse Practitioner Family; Visit Provider Nurse Practitioner Family
DX: E88.2 Lipomatosis, not elsewhere classified (principal)
CPT/HCPCS: 76705

== ENCOUNTER → 2023-06-10 00:19 | Outpatient (CLI) | payer MEDICARE, SELFPAY ==
--- NOTE | 2023-06-10 14:06 | DI.CTLCSR_ITS ---
Exam(s) CT CHEST LUNG CANCER SCREEN EXAM: CT CHEST LUNG CANCER SCREEN CLINICAL HISTORY: Screening for lung cancer,former smoker, z87.891 TECHNIQUE: Imaging Protocol: Axial computed tomography images with coronal and sagittal reformatted images were created and reviewed COMPARISON: CT CT CHEST LUNG CANCER SCREEN from 05/02/[address] CHEST WO from 06/18/2022 FINDINGS: Tracheobronchial tree: Patent where visualized. Pulmonary parenchyma: No consolidation or dominant measurable mass. Emphysematous changes are present in the lungs. The triangular opacity in the left lingula appears stable. This may represent scar. Lung Nodules: There is an area of nodularity in the lateral aspect of the left upper lobe. The large st nodule measures 4 mm. Mediastinum and Tati: No dominant adenopathy or fluid collection. The esophagus is unremarkable. Thyroid gland: Unremarkable. Pleura: No effusion or pneumothorax. Heart: The heart is not dilated. Coronary artery calcifications are present. No pericardial effusion . Aorta: Thoracic aorta non-dilated.Atherosclerosis. Upper abdomen: Unremarkable. Soft Tissues: Unremarkable. Bones: Within normal limits. IMPRESSION: New small area of nodularity in the lateral aspect of the left upper lobe. The largest nodule measur es 4 mm. Lung RADS Cat 3 - Probably Benign: Probably benign finding(s) - short term follow-up suggested; inclu de nodules with a low likelihood of becoming a clinically active cancer. Lung-RADS 1.0 CATEGORIES: Category 0 - Prior chest CT exam(s) being located for comparison. Category 1 - Annual screening in 12 months. No nodules or definitely benign nodules. Category 2 - Annual screening in 12 months. Benign appearance. Nodules with low likelihood of becomin g active cancer. Category 3 - 6-month follow-up. Probably benign. Short-term follow-up suggested. Nodules with low lik elihood of becoming active cancer. Category 4A - 3-month follow-up and CT/PET if >8 mm in size. Suspicious finding. Findings which requi re additional testing. Category 4B - Findings which require additional testing and tissue sampling. Suspicious finding. Category 4X - Category 3 or 4 nodules with additional features or imaging findings that increases the suspicion of malignancy. Modifier S- Potentially clinically significant finding. (Non lung cancer) RADIATION DOSE DELIVERED: Total DLP Total DLP DATA REPOSITORY: All CT scans at this facility are submitted to the National Radiology Data Registry (NRDR) Dose Index Registry (DIR) with the [employer] (ACR). RADIATION OPTIMIZATION: All CT scans at this facility use at least one of these dose optimization te chniques: automated exposure control; mA and/or kV adjustment per patient size (includes targeted exa ms where dose is matched to clinical indication); or iterative reconstruction.
== END ==
PROVIDERS: PCP Nurse Practitioner Family; Visit Provider Student in an Organized Health Care Education/Training Program
DX: Z87.891 Personal history of nicotine dependence (principal); Z12.2 Encounter for screening for malignant neoplasm of respiratory organs; R91.8 Other nonspecific abnormal finding of lung field
CPT/HCPCS: 71271

== ENCOUNTER → 2023-06-19 09:45 | Outpatient (BNVA) | payer MEDICARE, SELFPAY | PROVIDERS: PCP Nurse Practitioner Family; Referring Provider Nurse Practitioner Family; Visit Provider Physician Assistant Surgical | DX: J44.9 Chronic obstructive pulmonary disease, unspecified (principal); Z79.51 Long term (current) use of inhaled steroids; Z79.899 Other long term (current) drug therapy; R91.8 Other nonspecific abnormal finding of lung field; J96.91 Respiratory failure, unspecified with hypoxia; Z99.81 Dependence on supplemental oxygen; Z87.891 Personal history of nicotine dependence | CPT/HCPCS: 99214 ==

== ENCOUNTER 2023-10-11 14:54 | Outpatient (REF) | payer MEDICARE, SELFPAY ==
[2023-10-11 17:17] LABS: Anion Gap 8.6 mmol/L (3-11); BUN 22 mg/dL (7-18); CO2 24.4 mmol/L (21.0-32.0); CREATININE 1.4 mg/dL (0.55-1.02); Calcium 9.5 mg/dL (8.5-10.1); Chloride 110 mmol/L (98-107); Estimated GFR 38.99 (mL/min/1.73m2); Glucose 111 mg/dL (74-106); Potassium 4.5 mmol/L (3.5-5.1); Sodium 143 mmol/L (136-145); TSH 2.24 uIU/Ml (0.36-3.74); Vitamin B12 623 pg/mL (193-986)
[2023-10-11 17:22] LABS: Folate > 20.0 ng/mL (8.6-20.0)
== END 2023-10-11 14:55 | disposition home or self-care (01) ==
LOC: NCHCN 14:54
PROVIDERS: PCP Nurse Practitioner Family; Referring Provider Nurse Practitioner Family; Visit Provider Nurse Practitioner Family
DX: E03.9 Hypothyroidism, unspecified (principal); R41.3 Other amnesia; E87.6 Hypokalemia; M79.671 Pain in right foot
CPT/HCPCS: 80048; 82607; 82746; 84443

== ENCOUNTER → 2023-11-25 02:08 | Outpatient (CLI) | payer MEDICARE, SELFPAY ==
--- NOTE | 2023-11-25 08:45 | DI.CT_ITS ---
Exam(s) CT CHEST WO EXAM: CT CHEST WO CLINICAL HISTORY: follow up new pulmonary nodule,r91.8. TECHNIQUE: Imaging protocol: Axial computed tomography images were obtained and coronal and sagittal reformatted images were created and reviewed. COMPARISON: CT CT CHEST WO from 06/18/[address] CHEST LUNG CANCER SCREEN from 06/10/2023 FINDINGS: Tracheobronchial tree: There is focal bronchiectasis in the medial aspect of the right middle lobe wi th adjacent scarring and atelectasis. Pulmonary parenchyma: There is stable scarring in the left lingula. There are peripheral nodular are a in the left upper lobe is no longer visualized. No suspicious pulmonary nodules are present. Mediastinum and Tati: No dominant adenopathy or fluid collection. The esophagus is unremarkable. Thyroid gland: Unremarkable. Pleura: No effusion or pneumothorax. Heart: The heart is not dilated. Coronary artery calcifications are present. No pericardial effusion. Aorta: Thoracic aorta non-dilated. Atherosclerotic calcification of the thoracic aorta is present. Upper abdomen: Unremarkable. Lymph nodes: Within normal limits. Soft tissues: Unremarkable. Bones:Within normal limits for the patient's age. IMPRESSION: 1. No suspicious pulmonary nodules. 2. No acute pulmonary process. RADIATION DOSE DELIVERED: 353.19mGy.cm Total DLP 353.19mGy.cm Total DLP DATA REPOSITORY: All CT scans at this facility are submitted to the National Radiology Data Registry (NRDR) Dose Index Registry (DIR) with the [employer] (ACR). RADIATION OPTIMIZATION: All CT scans at this facility use at least one of these dose optimization te chniques: automated exposure control; mA and/or kV adjustment per patient size (includes targeted exa ms where dose is matched to clinical indication); or iterative reconstruction.
== END ==
PROVIDERS: PCP Nurse Practitioner Family; Visit Provider Physician Assistant Surgical
DX: R91.8 Other nonspecific abnormal finding of lung field (principal); J98.4 Other disorders of lung
CPT/HCPCS: 71250

== ENCOUNTER → 2023-12-31 12:56 | Outpatient (BNVA) | payer MEDICARE, SELFPAY | PROVIDERS: PCP Nurse Practitioner Family; Referring Provider Nurse Practitioner Family; Visit Provider Student in an Organized Health Care Education/Training Program | DX: J44.9 Chronic obstructive pulmonary disease, unspecified (principal); J96.91 Respiratory failure, unspecified with hypoxia; R91.8 Other nonspecific abnormal finding of lung field | CPT/HCPCS: 99214 ==

== ENCOUNTER → 2024-06-29 12:38 | Outpatient (BNVA) | payer MEDICARE, SELFPAY | PROVIDERS: PCP Nurse Practitioner Family; Referring Provider Nurse Practitioner Family; Visit Provider Physician Assistant Surgical | DX: J44.9 Chronic obstructive pulmonary disease, unspecified (principal); J96.91 Respiratory failure, unspecified with hypoxia; R91.8 Other nonspecific abnormal finding of lung field; Z87.891 Personal history of nicotine dependence | CPT/HCPCS: 36415; 99214 ==

== ENCOUNTER 2024-06-29 15:25 | Outpatient (REF) | payer MEDICARE, SELFPAY ==
--- OUTSIDE RECORDS SUMMARY | 2024-06-29 15:27 | XMS_ITS | Encounter Summary ---
Author Organization [facility] [place] [address] Care Team Providers Care Lithopone Charger Name Role Phone AshleyhilaryjulietaMartita Irma Primary Care Provider [phone] Encounter Details Date Type Department Care Team (Late st Contact Info) Description 08/07/2021 11:15 AM EST Office Visit Dermatology at [address] [place] [id number] Cornell Aldana MD [address] [facility] [place] [address] Chondrodermatitis nodularis helicis of left ear; History of basal cell carcinoma; Xerosis cutis Social History Tobacco Use Types Packs/Day Years Used Date Smoking Tobacco: Never Smokeless Tobacco: Never Alcohol Use Standard Drinks/Week Comments Not Currently 0 (1 standard drink = 0.6 oz pur e alcohol) Sex and Gender Information Value Date Recorded Sex Assigned at Not on file Gender Identity Not on file Sexual Orientation Not on file documented as of this encounter Progress Notes * Cornell Aldana MD - 08/07/2021 11:15 AM EST Problem: 1. ??History of extensive sun exposure, annual skin checkup 2. 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 ??Previously followed by a manager of maintenance in [place], now lives on [facility] 4. ??Seborrheic dermatitis of scalp well-controlled with head and shoulders shampoo 5. ??History of BCCA left anterior lateral base of neck in July 2016 6. ??History of BCCA right mid castañeda, central lower forehead July 2018 7. Patient with significant COPD on nasal cannula O2 Lisbeth follows up today for a yearly check. The area of CNH has healed well. She is here today with her Lincoln for her yearly skin checkup. She complains about her skin being very dry. She will use a CeraVe cream she has at home perhaps 2 or 3 times a week. Because of her COPD it is physically exhausting do simple things like apply CeraVe all of her body on a daily regular basis. Taking ashower is very exhausting so she washes with a washcloth in front of the sink. She uses Dove soap. Physical examination reveals a pleasant 76-year-old woman who has no active CNH of the left helicalrim. She has a benign examination of the face and neck chest back hands arms and forearms. She has an irritated hyperkeratotic papule on the left medial medial canthus clinically consistent with a seborrheic keratosis. She does have moderate xerosis cutis of the upper extremities and torso and more severe xerosis cutis of the lower extremities bilaterally. Assessment plan: Irritated seborrheic keratosis left upper medial canthus, rule out cutaneous malignancy 1. After obtaining consent site was anesthetized and shave biopsy was performed to rule out cutaneous malignancy 2. Specimen was submitted for pathologic analysis 3. Wound care instructions and supplies given Benign skin examination 1. Patient reassured about her benign skin examination 2. Return to clinic in 1 year for repeat check. Xerosis cutis 1. Consider use of CeraVe cream particular to legs as this is the worst area for dryness to controlthis problem. 2. Recommend using a daily basis. Her states that he will help her with this. CC: Serenity Sweeney documented in this encounter Plan of Treatment Upcoming Encounters Date Type Department Care Team (Late st Contact Info) Description 03/04/2025 3:15 PM EDT Office Visit Dermatology at [place] [address] [facility] [place] [phone] Cornell Aldana MD [address] [facility] [place] [address] documented as of this encounter Visit Diagnoses Diagnosis Chondrodermatitis nodularis helicis of left ear History of basal cell carcinoma Personal history of other malignant neoplasm of skin Xerosis cutis Other specified disease of sebaceous glands documented in this encounter Care Teams Lithopone Charger Relationship Specialty Start Date End Date Irma Sweeney [address] [place] [address] PCP - General Family Medicine 08/04/20 documented as of this encounter
--- OUTSIDE RECORDS SUMMARY | 2024-06-29 15:27 | XMS_ITS | Encounter Summary ---
Author Organization [facility] [address] Care Team Providers Care Aircraft Machinist Name Role Phone AshleyhilaryjulietaMartita Irma Primary Care Provider +1 [phone] Reason for Visit * Reason Comments Follow-up Encounter Details Date Type Department Care Team (Late st Contact Info) Description 08/13/2022 2:30 PM EST Procedure visit Dermatology at [address] [place] [address] Cornell Aldana MD [address] [facility], [place] [address] History of basal cell carcinoma Social History Tobacco Use Types Packs/Day Years [...] Progress Notes * Cornell Aldana MD - 08/13/2022 2:30 PM EST Clinical impression: Probable BCCA infiltrative type, right forehead Size: 1.5 cm Deep suture: 4-0 Vicryl Surface suture: 4-0 Ethilon Follow-up: In 1 week for suture removal and biopsy results Indications for surgery, possible adverse outcomes, and activity restrictions discussed. Informed verbal consent was obtained. Skin surface was prepared with 4% chlorhexidine and draped in the usual sterile manner. Local anesthesia with 1% lidocaine, 1 100,000 epinephrine and 0.1 mEq/mL bicarbonate. Using a 15 blade, and 3 mm margins, an elliptical excision was carried out around the lesion. Undermining performed peripherally. Hemostasis with education. Layered closure performed, specimen to pathology. Wound dressed, wound care reviewed. End length suture line was 3 cm. Follow-up in 1 week for suture removal and biopsy results. CC: Irma Mcginnis documented in this encounter Plan of Treatment Upcoming Encounters Date Type Department Care Team (Late st Contact Info) Description 03/04/2025 3:15 PM EDT Office Visit Dermatology at [place] [address] [place] [phone] Cornell Aldana MD 580 [facility], [place] [address] documented as of this encounter Visit Diagnoses Diagnosis History of basal cell carcinoma Personal history of other malignant neoplasm of skin documented in this encounter Care Teams Aircraft Machinist Relationship Specialty Start Date End Date Irma Sweeney [address] [place] [address] PCP - General Family Medicine 08/04/20 documented as of this encounter
--- OUTSIDE RECORDS SUMMARY | 2024-06-29 15:27 | XMS_ITS | Encounter Summary ---
Author Organization [facility] [place] [address] Care Team Providers Care College Athletic Director Name Role Phone Irma Sweeney Primary Care Provider +1- [phone] Reason for Visit * Reason Comments Annual Exam Encounter Details Date Type Department Care Team (Late st Contact Info) Description 08/13/2023 11:00 AM EST Office Visit Dermatology at [address] [phone] Cornell Aldana MD 580 [facility], [place] [address] History of basal cell carcinoma; Xerosis cutis; AK (actinic keratosis) Social History Tobacco Use Types Packs/Day Years [...] Progress Notes * Cornell Aldana MD - 08/13/2023 11:00 AM EST Problem: 1. History of extensive sun exposure, annual skin checkup 2. 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 Seborrheic dermatitis of scalp well-controlled with head and shoulders shampoo 5. 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 History of BCCA right mid castañeda, central lower forehead July 2018 7. History of BCCA right forehead August 2022 8. Patient with significant COPD on nasal cannula O2 Lisbeth follows up for her yearly skin checkup. She has not noted any particular lesions of concern. Physical examination reveals a pleasant 78-year-old woman who has partially desquamated seborrheic keratosis 1 x 2 cm in size on her left flank. She has 2 smaller seborrheic keratoses on her left lateral cheek. She has had excellent Healing of the right upper forehead BCC excision site from last August. On the right latter-day today she has a pearly plaque 1 cm in diameter concerning for a new probable BCCA. Otherwise examination of the head and the neck the chest the back the hands arms forearms thighs and calves is unmarkable. Assessment plan: Probable BCCA right latter-day 1. After obtaining informed consent, the site was anesthetized and removed with shave C&D 2. Triple antibiotic ointment and bandage placed. After curettage site measured 1 cm in diameter. 3. Wound care instructions and supplies given 4. Return to clinic in a year for repeat check. History of multiple nonmelanoma cutaneous malignancies 1. No evidence of recurrence at prior treatment sites. Irritated seborrheic keratoses left cheek and left flank 1. Could consider LN2 for these sites. CC: Irma Mcginnis APRN documented in this encounter Plan of Treatment Upcoming Encounters Date Type Department Care Team (Late st Contact Info) Description 03/04/2025 3:15 PM EDT Office Visit Dermatology at [place] [address] [facility] [place] [phone] Cornell Aldana MD 580 [facility], [place] [address] documented as of this encounter Visit Diagnoses Diagnosis History of basal cell carcinoma Personal history of other malignant neoplasm of skin Xerosis cutis Other specified disease of sebaceous glands AK (actinic keratosis) Actinic keratosis documented in this encounter Care Teams College Athletic Director Relationship Specialty Start Date End Date Irma Sweeney [address] [place] [address] PCP - General Family Medicine 08/04/20 documented as of this encounter
--- OUTSIDE RECORDS SUMMARY | 2024-06-29 15:27 | XMS_ITS | Encounter Summary ---
Author Organization [facility] [place] [address] Care Team Providers Care Tile Burner Name Role Phone Irma Sweeney Primary Care Provider +1- [phone] Encounter Details Date Type Department Care Team (Latest Contact Info) Description 02/28/2024 Travel Social History Tobacco Use Types Packs/Day Years Used Date Smoking Tobacco: Never Smokeless Tobacco: Never Alcohol Use Standard Drinks/Week Comments Not Currently 0 (1 standard drink = 0.6 oz pur e alcohol) Sex and Gender Information Value Date Recorded Sex Assigned at Not on file Gender Identity Not on file Sexual Orientation Not on file documented as of this encounter Plan of Treatment Upcoming Encounters Date Type Department Care Team (Late st Contact Info) Description 03/04/2025 3:15 PM EDT Office Visit Dermatology at [address] [place] [phone] Cornell Aldana MD [address] [facility] [address], [place] [address] documented as of this encounter Visit Diagnoses Not on filedocumented in this encounter Care Teams Tile Burner Relationship Specialty Start Date End Date Irma Sweeney [address] [place], [place] [id number] PCP - General Family Medicine 08/04/20 documented as of this encounter
--- OUTSIDE RECORDS SUMMARY | 2024-06-29 15:27 | XMS_ITS | Encounter Summary ---
Author Organization [facility] [place] [address] Care Team Providers Care Bilingual Call Center Representative Name Role Phone Jude Nino Primary Care Provider [phone] [phone] Reason for Visit * Reason Comments Skin Check Encounter Details Date Type Department Care Team (Late st Contact Info) Description 07/16/2016 10:15 AM EST Office Visit Dermatology at [address] [address] Cornell Aldana MD [address] [place] [address], [facility] [place] [address] Basal cell carcinoma; AK (actinic keratosis); Seborrheic dermatitis; Seborrheic keratosis Social History Tobacco Use Types Packs/Day Years Used Date Smoking Tobacco: Never Sex and Gender Information Value Date Recorded Sex Assigned at Not on file Gender Identity Not on file Sexual Orientation Not on file documented as of this encounter Progress Notes * Cornell Aldana MD - 07/16/2016 10:15 AM EST PROBLEMS: 1. Skin checkup. 2. History of extensive sun exposure. 3. Patient is followed by a bow string maker in [place]. 4. Dermatitis of the scalp well controlled with Head and Shoulders and T-Cell shampoo. Lisbeth is a 70-year-old woman who retired with her about 2 years ago to [facility] after living in [place] for almost 40 years. Her is originally from the [facility]. She has had a fair amount of sun exposure and would like to have some skin lesions checked. Has a considerable amount of new lesions on her legs. The patient is referred today by Jude Nino. PHYSICAL EXAMINATION: Reveals seborrheic keratosis present, 3 on the left anterior castañeda, 1 on the right dorsal thigh, 1 on the right upper forehead. She also has a pearly papule on the left upper presternal chest and the left anterolateral base of the neck, below the clavicle. Otherwise examination of the face, the neck, the back, the chest, hands, forearms, thighs and calves is benign. One of the patient's left anterior castañeda actinic keratosis is hyperkeratotic. ASSESSMENT AND PLAN: 1. Actinic keratosis. a. LN2 x2 applied to each of 6 sites today. 2. Probable BCCA left anterolateral base of neck. a. After obtaining consent, the site was anesthetized and removed with shave C and D. b. Triple antibiotic ointment was placed. Wound care and supplies given. Recommend return to clinic in another year for a repeat check. 3. Seborrheic dermatitis of the scalp. a. Continue Head and Shoulders and T-Cell, which is working well for patient. CC: Jude Nino PA-C ADDENDUM: Please add to the dictation for Lisbeth Taylor that note, after curettage the left anterior lateral base of neck biopsy site measured 1.5 cm in diameter. documented in this encounter Plan of Treatment Upcoming Encounters Date Type Department Care Team (Late st Contact Info) Description 03/04/2025 3:15 PM EDT Office Visit Dermatology at [place] 580 [facility] [place] [address] Cornell Aldana MD 580 [facility], [place] [address] documented as of this encounter Visit Diagnoses Diagnosis Basal cell carcinoma Basal cell carcinoma of skin, site unspecified AK (actinic keratosis) Actinic keratosis Seborrheic dermatitis Seborrheic dermatitis, unspecified Seborrheic keratosis Other seborrheic keratosis documented in this encounter Care Teams Bilingual Call Center Representative Relationship Specialty Start Date End Date Jude Nino PA [address] [place] [address] PCP - General General Internal Medicine 03/30/16 documented as of this encounter
--- OUTSIDE RECORDS SUMMARY | 2024-06-29 15:27 | XMS_ITS | Encounter Summary ---
Author Organization [facility] [place] [address] Care Team Providers Care Chief Librarian Music Department Name Role Phone Irma Sweeney Primary Care Provider +1- [phone] Encounter Details Date Type Department Care Team (Latest Contact Info) Description 08/21/2022 Travel Social History Tobacco Use Types Packs/Day [...] 3:15 PM EDT Office Visit Dermatology at [address] [place] [phone] Cornell Aldana MD [address] [facility] [address], [place] [address] documented as of this encounter Visit Diagnoses Not on filedocumented in this encounter Care Teams Chief Librarian Music Department Relationship Specialty Start Date End Date Irma Sweeney [address] [place] [address] PCP - General Family Medicine 08/04/20 documented as of this encounter
--- OUTSIDE RECORDS SUMMARY | 2024-06-29 15:27 | XMS_ITS | Encounter Summary ---
Author Organization [facility] [place] [address] Care Team Providers Care Power Line Lineman Name Role Phone Irma Sweeney Primary Care Provider +1- [phone] Encounter Details Date Type Department Care Team (Latest Contact Info) Description 08/26/2023 Travel Social History Tobacco Use Types Packs/Day [...] PM EDT Office Visit Dermatology at [address] [place] [phone] Cornell Aldana MD [address] [facility] [address], [place] [address] documented as of this encounter Visit Diagnoses Not on filedocumented in this encounter Care Teams Power Line Lineman Relationship Specialty Start Date End Date Irma Sweeney [address] [place], [place] [phone] PCP - General Family Medicine 08/04/20 documented as of this encounter
--- OUTSIDE RECORDS SUMMARY | 2024-06-29 15:27 | XMS_ITS | Encounter Summary ---
Author Organization [facility] [place] [address] Care Team Providers Care Power Shovel Mechanic Name Role Phone Jude Nino Primary Care Provider +1 [phone] Reason for Visit * Reason Comments Follow-up Encounter Details Date Type Department Care Team (Late st Contact Info) Description 08/25/2018 9:30 AM EST Office Visit Dermatology at [address] [address] Corenll Aldana MD 580 [facility] [address] History of basal cell carcinoma; Seborrheic dermatitis; Xerosis cutis Social History Tobacco Use Types Packs/Day Years Used Date Smoking Tobacco: Never Smokeless Tobacco: Never Sex and Gender Information Value Date Recorded Sex Assigned at Not on file Gender Identity Not on file Sexual Orientation Not on file documented as of this encounter Progress Notes * Cornell Aldana MD - 08/25/2018 9:30 AM EST Problem: 1. Follow-up for treatment of milia Lisbeth follows up and is here for treatment of her milia. She has 5 present on the face. Physical examination reveals a pleasant 73-year-old woman who has 5 milia present over the malar cheeks bilaterally. Assessment plan: Milia 1. After obtaining consent sites were anesthetized and removed with a 18-gauge needle. 2. Hemo-stasis obtained with aluminum chloride 3. Return to clinic in another year July 2019 for repeat skin checkup. Note the patient points out that the shave C&D biopsy site from her last visit are healing slowly. She still has erythema at the central lower forehead site, and a crust scab still present on theright mid castañeda. Patient reassured about these. Expect complete healing and fading of erythema within the next several months. CC: Jude ROGERS documented in this encounter Plan of Treatment Upcoming Encounters Date Type Department Care Team (Late st Contact Info) Description 03/04/2025 3:15 PM EDT Office Visit Dermatology at [place] [address] [place] [address] Cornell Aldana MD 580 [facility] [place] [address] documented as of this encounter Visit Diagnoses Diagnosis History of basal cell carcinoma Personal history of other malignant neoplasm of skin Seborrheic dermatitis Seborrheic dermatitis, unspecified Xerosis cutis Other specified disease of sebaceous glands documented in this encounter Care Teams Power Shovel Mechanic Relationship Specialty Start Date End Date Jude Nino PA [address] [place] [address] PCP - General General Internal Medicine 03/30/16 documented as of this encounter
--- OUTSIDE RECORDS SUMMARY | 2024-06-29 15:27 | XMS_ITS | Encounter Summary ---
Author Organization [facility] [place] [address] Care Team Providers Care Noise Tester Name Role Phone Irma Sweeney Primary Care Provider +1- [phone] Encounter Details Date Type Department Care Team (Latest Contact Info) Description 09/03/2023 Travel Social History Tobacco Use Types Packs/Day [...] 3:15 PM EDT Office Visit Dermatology at [address] [place] [phone] Cornell Aldana MD [address] [facility] [address], [place] [address] documented as of this encounter Visit Diagnoses Not on filedocumented in this encounter Care Teams Noise Tester Relationship Specialty Start Date End Date Irma Sweeney [address] [place], [place] [id number] PCP - General Family Medicine 08/04/20 documented as of this encounter
--- OUTSIDE RECORDS SUMMARY | 2024-06-29 15:27 | XMS_ITS | Encounter Summary ---
Author Organization [facility] [place] [address] Care Team Providers Care Internal Communications Manager Name Role Phone Irma Sweeney Primary Care Provider +1- [phone] Encounter Details Date Type Department Care Team (Late Contact Info) Description 09/05/2023 Telephone Dermatology at [place] [address] [facility] [place] [address] Kyleigh Ho LPN Social History Tobacco Use Types Packs/Day Years Used Date Smoking Tobacco: Never Smokeless Tobacco: Never Alcohol Use Standard Drinks/Week Comments Not Currently 0 (1 standard drink = 0.6 oz pur e alcohol) Sex and Gender Information Value Date Recorded Sex Assigned at Not on file Gender Identity Not on file Sexual Orientation Not on file documented as of this encounter Miscellaneous Notes * Telephone Encounter - Kyleigh Ho LPN - 09/05/2023 4:47 PM EST 08/26/23 Right pentecostalism skin excision Diagnosis: BCCa No further treatment necessary, return to clinic in six months. Appointment has been scheduled. Reviewed biopsy results and Dr. Celaya recommendations with patient. She voiced understanding. documented in this encounter Plan of Treatment Upcoming Encounters Date Type Department Care Team (Late Contact Info) Description 03/04/2025 3:15 PM EDT Office Visit Dermatology at [place] [address] [facility] [place] [address] Cornell Aldana MD [address] [facility] [address], [place] [address] documented as of this encounter Visit Diagnoses Not on filedocumented in this encounter Care Teams Internal Communications Manager Relationship Specialty Start Date End Date Irma Sweeney [address] [place] [address] PCP - General Family Medicine 08/04/20 documented as of this encounter
--- OUTSIDE RECORDS SUMMARY | 2024-06-29 15:27 | XMS_ITS | Encounter Summary ---
Author Organization [facility] [address] Care Team Providers Care Solar Project Engineer Name Role Phone Irma Sweeney Primary Care Provider [phone]- [phone] Reason for Visit * Reason Comments Skin Check history basal cell c arcinoma Skin Lesion painful left ear upp er pinna * Consultation (Routine) - Closed Specialty Diagnoses / Procedures Referred By Liz guillory Referred To Contact Dermatology Diagnoses Disorder of the skin and subcutaneous tissue, unspecified Personal history of other malignant neoplasm of skin Abnormal Skin Lesion, HX of BCCa; Est. Patient-Notes Received Procedures Consult Irma Sweeney [address] [place] [address] Cornell Aldana MD [address] [place] [address], [facility] [place] [address] Referral ID Status Reason Start Date Expiration Date V isits Requested Visits Authorized [id number] Closed Consult, Test & Treat PCP Updated and/or Approved 12/01/2020 12/01/2021 12 12 Encounter Details Date Type Department Care Team (Late st Contact Info) Description 12/05/2020 3:00 PM EDT Office Visit Dermatology at [address] [address] Cornell Aldana MD [address] [place] [address], [facility] [place] [address] Chondrodermatitis nodularis helicis of left ear Social History Tobacco Use Types Packs/Day Years [...] Progress Notes * Cornell Aldana MD - 12/05/2020 3:00 PM EDT Problem: 1. ??New skin lesion of concern, nonhealing lesion left ear. 2. ??History of extensive sun exposure 3. ??Previously followed by a sat act instructor in [place], now lives on [facility] 4. ??Seborrheic dermatitis of scalp well-controlled with head and shoulders shampoo 5. ??History of BCCA left anterior lateral base of neck in July 2016 6. ??History of BCCA right mid castañeda, central lower forehead July 2018 Lisbeth follows up after last being seen in July. Over the last 3 months she has developed a painful area on the left superior lateral helical rim. She is here today with her , Lincoln. Physical examination reveals a pleasant 75-year-old woman who has an extremely painful small crust scab on the left upper lateral helical rim consistent with CNH. There is no surrounding induration. Assessment plan: Chondrodermatitis nodularis helicis 1. Discussed diagnosis with patient and with her , Lincoln. 2. Recommend keeping pressure off of this area to allow it to heal. 3. Reassured her that this does not represent skin cancer. 4. Return to clinic in another year as already scheduled for regular skin checkup. CC: Irma Mcginnis documented in this encounter Plan of Treatment Upcoming Encounters Date Type Department Care Team (Late st Contact Info) Description 03/04/2025 3:15 PM EDT Office Visit Dermatology at [place] [address] [facility] [place] [address] Cornell Aldana MD 580 [facility], [facility] [place] [address] documented as of this encounter Visit Diagnoses Diagnosis Chondrodermatitis nodularis helicis of left ear documented in this encounter Care Teams Solar Project Engineer Relationship Specialty Start Date End Date Irma Sweeney [address] [place] [address] PCP - General Family Medicine 08/04/20 documented as of this encounter
--- OUTSIDE RECORDS SUMMARY | 2024-06-29 15:27 | XMS_ITS | Encounter Summary ---
Author Organization [facility] Address [facility] [place] [address] Care Team Providers Care Production Proofreader Name Role Phone AshleyhilaryjulietaIrma Anders Primary Care Provider [phone]- [phone] Reason for Visit * Reason Comments Suture / Staple Removal Encounter Details Date Type Department Care Team (Late st Contact Info) Description 09/03/2023 2:30 PM EST Office Visit Dermatology at [address] [place] [phone] Cornell Aldana MD 580 [facility], [facility] A DERMATOLOGY [place], [place] [phone] Visit for suture removal Social History Tobacco Use Types Packs/Day Years [...] Progress Notes * Cornell Aldana MD - 09/03/2023 2:30 PM EST Problem: Follow-up for suture removal and biopsy results Lisbeth follows up and had an uneventful postoperative course. Things have healed well. We are still waiting on the biopsy report from the right hoahaoism BCC excision. Physical examination reveals a pleasant 78-year-old woman who has mild erythema still along the excision right hoahaoism. Appears to be healing quite well. Assessment and plan: Status post excision BCCA right hoahaoism 1. Sutures removed 2. DC wound care instructions 3. Return to clinic in a year for repeat skin checkup. CC: Irma Sweeney APRN documented in this encounter Plan of Treatment Upcoming Encounters Date Type Department Care Team (Late st Contact Info) Description 03/04/2025 3:15 PM EDT Office Visit Dermatology at [place] [address] [facility] [place] [address] Cornell Aldana MD [address], [place] [address] documented as of this encounter Visit Diagnoses Diagnosis Visit for suture removal Encounter for removal of sutures documented in this encounter Care Teams Production Proofreader Relationship Specialty Start Date End Date Irma Sweeney [address] [place] [address] PCP - General Family Medicine 08/04/20 documented as of this encounter
--- OUTSIDE RECORDS SUMMARY | 2024-06-29 15:27 | XMS_ITS | Clinical Summary ---
Author Organization [facility] Address [facility] [place] [address] Care Team Providers Care Furnace Repairer Helper Name Role Phone Irma Sweeney Primary Care Provider +1- [phone] Allergies No known active allergies Medications Medication Sig Dispensed Refills Start Date End Date Status traZODone (DESYREL) 50 mg Tablet 07/12/2016 Active Trelegy Ellipta 100-62.5-25 mcg Disk with Device 2020 Active levothyroxine (Synthroid) 50 mcg Tablet Take 75 mcg by mouth daily. 07/21/2020 Active Miscellaneous Medical Supply Misc 1 L by [place].(Non-Drug; Combo Route) route Continuous (Device). Oxygen - portable and home concentrator by nasal cannula continuously Active guaiFENesin ER (Mucinex) 600 mg Tablet Extended Release 12hr Take 600 mg by mouth 2 times daily. As needed for cough Active lactobacillus rhamnosus, GG, (CULTURELLE) 10 billion cell Capsule Take 1 capsule by mouth daily. Active multivitamin (THERAGRAN) Tablet Take 1 tablet by mouth daily. Active albuteroL 90 mcg/actuation HFA Aerosol Inhaler Inhale 2 puffs into the lungs every 4 hours as needed for Wheezing. Use with spacer Active gabapentin (Neurontin) 100 mg Capsule TAKE 1 CAPSULE BY MOUTH AT BEDTIME NEEDED MAY INCREASE TO 2 CAPSULES AT BEDTIME IF NEEDED 07/03/2022 Active mupirocin (Bactroban) 2 % Ointment APPLY A SMALL AMOUNT OF OINTMENT TOPICALLY TO AFFECTED AREA TWICE DAILY 06/02/2022 Active mirtazapine (Remeron) 15 mg Tablet Take 15 mg by mouth nightly. 06/20/2022 Active cetirizine (ZyrTEC) 10 mg tablet Take 1 tablet by mouth Daily at Noon. 08/01/2023 Active morphine 20 mg/mL Solution TAKE 0.25ML TO 0.5ML (5 TO 10MG) EVERY 4 HOURS. MAXIMUM OF 3ML PER DAY FOR SHORTNESS OF BREATH 07/26/2023 Active potassium chloride (Klor-Con, K-Tab) 20 mEq ER tablet Take 1 tablet by mouth Daily at Noon. 07/15/2023 Active predniSONE (Deltasone) 10 mg tablet TAKE 4 TABLETS BY MOUTH ONCE DAILY FOR 4 DAYS, THEN 3 TABS ONCE DAILY FOR 3 DAYS, THEN 2 TABS ONCE DAILY FOR 3 DAYS, THEN 1 TAB ONCE DAILY FOR 3 DAYS THEN 1/2 (ONE-HALF) TAB ONCE DAILY FOR 3 DAYS 07/16/2023 Active Active Problems Problem Noted Date Diagnosed Date Hyperglycemia 12/05/2020 Hypertension 12/05/2020 Adrenal insufficiency 12/05/2020 DVT prophylaxis 12/05/2020 Macrocytic anemia 12/05/2020 Dependence on continuous supplemental oxygen 10/2020 COPD exacerbation 10/29/2018 History of basal cell carcinoma 07/19/2017 Xerosis cutis 07/19/2017 Basal cell carcinoma 07/16/2016 AK (actinic keratosis) 07/16/2016 Seborrheic dermatitis 07/16/2016 Resolved Problems Problem Noted Date Diagnosed Date Resolved Date Pneumonia 12/05/2020 12/05/2020 Social History Tobacco Use Types Packs/Day Years Used Date Smoking Tobacco: Never Smokeless Tobacco: Never Alcohol Use Standard Drinks/Week Comments Not Currently 0 (1 standard drink = 0.6 oz pur e alcohol) Sex and Gender Information Value Date Recorded Sex Assigned at Not on file Gender Identity Not on file Sexual Orientation Not on file Plan of Treatment Upcoming Encounters Date Type Department Care Team (Late st Contact Info) Description 03/04/2025 3:15 PM EDT Office Visit Dermatology at [place] [address] [facility] [place] [address] Cornell Aldana MD [address] [facility], [place] [address] Health Maintenance Due Date Last Done Comments Pneumoccocal Vaccine: 65+ (1 of 2 - PCV) 1953 Hepatitis C Screening 1965 Tetanus/Diphtheria/Pertussis Vaccines (1 - Tdap) 08/03 Zoster vaccine (1 of 2) 1997 Advance Directive 2002 Bone Density Scan 2012 RSV Vaccine (1 - 1-dose 75+ series) 2022 Covid-19 Vaccine (1 - season) 2024 Influenza (Flu) vaccine (1 o f 1 - Influenza standard series) 04/05/2024 Care Teams Furnace Repairer Helper Relationship Specialty Start Date End Date Irma Sweeney [address] [place], [place] [id number] PCP - General Family Medicine 08/04/20
--- OUTSIDE RECORDS SUMMARY | 2024-06-29 15:27 | XMS_ITS | Encounter Summary ---
Author Organization [facility] [place] [address] Care Team Providers Care Colon And Rectal Surgeon Name Role Phone GualbertoMartitaIrma Primary Care Provider +1- [phone] Encounter Details Date Type Department Care Team (Late st Contact Info) Description 08/11/2020 Telephone Dermatology at [address] [address] Kyleigh Ho LPN Social History Tobacco Use Types Packs/Day Years Used Date Smoking Tobacco: Never Smokeless Tobacco: Never Sex and Gender Information Value Date Recorded Sex Assigned at Not on file Gender Identity Not on file Sexual Orientation Not on file documented as of this encounter Miscellaneous Notes * Telephone Encounter - Kyleigh Ho LPN - 08/11/2020 10:54 AM EST 08/04/2021 Shave biopsy left caodaism Dx: BCCA No further treatment necessary Return to clinic 08/07/21 Reviewed above information with . He voiced understanding and will advise Lisbeth. documented in this encounter Plan of Treatment Upcoming Encounters Date Type Department Care Team (Late st Contact Info) Description 03/04/2025 3:15 PM EDT Office Visit Dermatology at [address] [address] Cornell Aldana MD [address] [place] [address], NICHOLAS A DERMATOLOGY [place], [place] [id number] documented as of this encounter Visit Diagnoses Not on filedocumented in this encounter Care Teams Colon And Rectal Surgeon Relationship Specialty Start Date End Date Irma Sweeney [address] [place] [address] PCP - General Family Medicine 08/04/20 documented as of this encounter
--- OUTSIDE RECORDS SUMMARY | 2024-06-29 15:27 | XMS_ITS | Encounter Summary ---
Author Organization [facility] Address [address] [place] [address] Care Team Providers Care Dovetailer Name Role Phone Unavailable Primary Care Provider Unavailabl e Encounter Details Date Type Department Care Team (Late st Contact Info) Description 08/02/2020 Lab Requisition [facility] Pathology & Laboratory Medicine - [facility] [address] [place] [address] Outr Resulting Lab, Provider Social History Tobacco Use Types Packs/Day Years Used Date Smoking Tobacco: Never Assessed Interpersonal Safety Answer Date Record ed Physically Hurt Never 2020 Verbally Threaten Not on file 2020 Comments Unknown Sex and Gender Information Value Date Recorded Sex Assigned at Not on file Legal Sex Female 11:32 EST Gender Identity Not on file Sexual Orientation Not on file documented as of this encounter Plan of Treatment Not on file documented as of this encounter Procedures Procedure Name Priority Date/Time Associated Diagnosis Comments PTH INTACT Routine 08/01/2020 10:20 EST documented in this encounter Results * PTH INTACT (08/01/2020 10:20 EST) Intact PTH 56 19 - 88 pg/mL 2020 9:[address] [facility] Blood VENOUS BLOOD / Unknown 08/01/2020 10:20 EST 08/02/2020 15:55 EST us Provider Outr Resulting Lab CHEMISTRY & BLOOD GA S ORDERABLES Final Result [facility] [address] [place] [address] documented in this encounter Visit Diagnoses Not on filedocumented in this encounter
--- OUTSIDE RECORDS SUMMARY | 2024-06-29 15:27 | XMS_ITS | Clinical Summary ---
Author Organization [facility] Address [address] [place] [address] Care Team Providers Care Beach Attendant Name Role Phone Unavailable Primary Care Provider Unavailabl e Social History Tobacco Use Types Packs/Day Years Used Date Smoking Tobacco: Never Assessed Interpersonal Safety Answer Date Record ed Physically Hurt Never 2020 Verbally Threaten Not on file 2020 Comments Unknown Sex and Gender Information Value Date Recorded Sex Assigned at Not on file Legal Sex Female 11:32 EST Gender Identity Not on file Sexual Orientation Not on file Plan of Treatment Health Maintenance Due Date Last Done Comments Hepatitis C Screen 1945 Fall Risk Screening 2012 RSV Immunization ( o r 60+ Years) (1 - 1-dose 75+ series) 2022 COVID-19 Vaccine ( season) 2024
--- OUTSIDE RECORDS SUMMARY | 2024-06-29 15:27 | XMS_ITS | Encounter Summary ---
Author Organization [facility] [place] [address] Care Team Providers Care Processing Analyst Name Role Phone Irma Sweeney Primary Care Provider +1- [phone] Encounter Details Date Type Department Care Team (Latest Contact Info) Description 08/13/2023 10:04 PM EST - 08/13/2023 11:59 PM EST Hospital [place] [phone] Discharge Disposition: Home Social History Tobacco Use Types Packs/Day Years Used Date Smoking Tobacco: Never Smokeless Tobacco: Never Alcohol Use Standard Drinks/Week Comments Not Currently 0 (1 standard drink = 0.6 oz pur e alcohol) Sex and Gender Information Value Date Recorded Sex Assigned at Not on file Gender Identity Not on file Sexual Orientation Not on file documented as of this encounter Medications at Time of Discharge Medication Sig Dispensed Refills Start Date End Date cetirizine (ZyrTEC) 10 mg tablet Take 1 tablet by mouth Daily at Noon. 08/01/2023 morphine 20 mg/mL Solution TAKE 0.25ML TO 0.5ML (5 TO 10MG) EVERY 4 HOURS. MAXIMUM OF 3ML PER DAY FOR SHORTNESS OF BREATH 07/26/2023 potassium chloride (Klor-Con, K-Tab) 20 mEq ER tablet Take 1 tablet by mouth Daily at Noon. 07/15/2023 predniSONE (Deltasone) 10 mg tablet TAKE 4 TABLETS BY MOUTH ONCE DAILY FOR 4 DAYS, THEN 3 TABS ONCE DAILY FOR 3 DAYS, THEN 2 TABS ONCE DAILY FOR 3 DAYS, THEN 1 TAB ONCE DAILY FOR 3 DAYS THEN 1/2 (ONE-HALF) TAB ONCE DAILY FOR 3 DAYS 07/16/2023 gabapentin (Neurontin) 100 mg Capsule TAKE 1 CAPSULE BY MOUTH AT BEDTIME NEEDED MAY INCREASE TO 2 CAPSULES AT BEDTIME IF NEEDED 07/03/2022 mupirocin (Bactroban) 2 % Ointment APPLY A SMALL AMOUNT OF OINTMENT TOPICALLY TO AFFECTED AREA TWICE DAILY 06/02/2022 mirtazapine (Remeron) 15 mg Tablet Take 15 mg by mouth nightly. 06/20/2022 guaiFENesin ER (Mucinex) 600 mg Tablet Extended Release 12hr Take 600 mg by mouth 2 times daily. As needed for cough lactobacillus rhamnosus, GG, (CULTURELLE) 10 billion cell Capsule Take 1 capsule by mouth daily. multivitamin (THERAGRAN) Tablet Take 1 tablet by mouth daily. albuteroL 90 mcg/actuation HFA Aerosol Inhaler Inhale 2 puffs into the lungs every 4 hours as needed for Wheezing. Use with spacer [facility] 1 L by [facility].(Non-Drug; Combo Route) route Continuous (Device). Oxygen - portable and home concentrator by nasal cannula continuously Trelegy Ellipta 100-62.5-25 mcg Disk with Device 2020 levothyroxine (Synthroid) 50 mcg Tablet Take 75 mcg by mouth daily. 07/21/2020 traZODone (DESYREL) 50 mg Tablet 07/12/2016 buPROPion XL (Wellbutrin XL) 150 mg XL 24 hr tablet Take 150 mg by mouth every morning. 06/20/2023 02/28/2024 azithromycin (Zithromax) 250 mg Tablet TAKE 1 TABLET BY MOUTH ONCE DAILY FOR COPD 08/02/2022 02/28/2024 documented as of this encounter Plan of Treatment Upcoming Encounters Date Type Department Care Team (Late st Contact Info) Description 03/04/2025 3:15 PM EDT Office Visit Dermatology at [place] [address] [facility] [place] [address] Cornell Aldana MD [address] [facility], NICHOLAS [place] [address] documented as of this encounter Procedures Procedure Name Priority Date/Time Associated Diagnosis Comments SURGICAL PATHOLOGY REPORT Routine 08/13/2023 11:35 AM EST documented in this encounter Results * (ABNORMAL) Surgical Pathology Report (08/13/2023 11:35 AM EST) Final Diagnosis [id number] ? Location: [facility] The signing pathologist has (i) examined the relevant preparation(s) for the specimen(s) and (ii) rendered or confirmed the diagnosis(es). . ?Surgical Pathology DIAGNOSIS Right evangelical, skin shave biopsy ED&C: - ??Basal cell carcinoma, superficial, nodular and infiltrating types, ?present at the peripheral and deep specimen edges Electronically signed by: ?Rosa WELLS, PhD, Jesus Moise Verified: ??08/21/2023 14:07 ??Dermatopatholo gist, Bone & Soft Tissue Pathologist Performed at: ??-[facility] Dept. of Pathology, [place] [address] Insurance Examiner: Alesia Coughlin MD, AP, ??CLIA Certificate: [id number] DISCUSSION THIS RESULT REQUIRES PHYSICIAN/A.P.P. FOLLOW UP SPECIMEN(S) SUBMITTED A - R evangelical, skin shave ED&C Referring Identifier: ?(not provided) CLINICAL INFORMATION 1 cm pearly plaque; infiltrative BCC/SCC SPECIMEN PROCESSING A - Labeled/Fixative : Patient demographics, formalin. Quantity/Size: ??Single, 1.2 x 0.8 x 0.1 cm. Tissue Description: Shave of a pink-white skin plaque. Sections/Process ing: Inked, quadrisected and entirely submitted in 1 cassette labeled A1. ??sns(A) 08/21/2023 2:07 PM EST [facility] SPECIMEN FROM SKIN / Unknown 08/13/2023 11:35 AM EST 08/13/2023 11:35 AM EST Cornell Aldana MD PATHOLOGY/CYTOLOGY O [facility] [place] [place] [address] [facility] [place] [address] documented in this encounter Visit Diagnoses Not on filedocumented in this encounter Care Teams Processing Analyst Relationship Specialty Start Date End Date Irma Sweeney [address] [place] [address] PCP - General Family Medicine 08/04/20 documented as of this encounter
--- OUTSIDE RECORDS SUMMARY | 2024-06-29 15:27 | XMS_ITS | Encounter Summary ---
Author Organization [facility] [place] [address] Care Team Providers Care Teletype Telegrapher Name Role Phone RileyjulietaIrma Anders Primary Care Provider +1- [phone] Reason for Visit * Reason Comments Annual Exam Encounter Details Date Type Department Care Team (Late st Contact Info) Description 08/09/2022 11:15 AM EST Office Visit Dermatology at [address] [phone] Cornell Aldana MD [address] [facility], [place] [address] History of basal cell carcinoma; Xerosis cutis; [...] Progress Notes * Cornell Aldana MD - 08/09/2022 11:15 AM EST Problem: 1. ??History of extensive sun exposure, annual skin checkup 2. 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 ??Previously followed by a job specification writer in [place], now lives on [facility] 4. ??Seborrheic dermatitis of scalp well-controlled with head and shoulders shampoo 5. ??History of BCCA left anterior lateral base of neck in July 2016 6. ??History of BCCA right mid castañeda, central lower forehead July 2018 7. Patient with significant COPD on nasal cannula O2 Lisbeth follows up for her yearly skin checkup. She continues to struggle with her COPD. She is unable to shower so mostly now does bird baths to clean her skin. She complains of itching and dry skinparticular on her back and on her legs Physical examination reveals a pleasant 77-year-old woman who has an actinic keratosis on her rightcheek, and a 1 cm diameter whitish sclerotic probable BCCA with infiltrative features on her right forehead. Examination of the head and the neck the chest the back the hands arms forearms thighs andcalves is otherwise benign. She has xerosis cutis of her lower extremities but also of her back as well as retention keratosis from her lack of ability to shower regularly. Assessment plan: Actinic keratosis right cheek 1. LN 2 x 2 applied to single site Probable BCCA, infiltrative type, right forehead 1. We will schedule a 45-minute appointment for excision of this in the near future. Otherwise benign skin examination 1. Patient reassured about the remainder of her benign skin examination 2. No evidence of recurrence at prior treatment sites. 3. Return to clinic in a year for repeat check. Pruritus back and legs 1. Due to xerosis cutis 2. Continue to try to use her CeraVe cream on a more regular daily basis. cc: MINDY Chacon documented in this encounter Plan of Treatment Upcoming Encounters Date Type Department Care Team (Late st Contact Info) Description 03/04/2025 3:15 PM EDT Office Visit Dermatology at [place] [address] [facility] [place] [address] Cornell Aldana MD [address] [facility] [place] [address] documented as of this encounter Visit Diagnoses Diagnosis History of basal cell carcinoma Personal history of other malignant neoplasm of skin Xerosis cutis Other specified disease of sebaceous glands AK (actinic keratosis) Actinic keratosis documented in this encounter Care Teams Teletype Telegrapher Relationship Specialty Start Date End Date TitusIrma Mcginnis [address] [place] [address] PCP - General Family Medicine 08/04/20 documented as of this encounter
--- OUTSIDE RECORDS SUMMARY | 2024-06-29 15:27 | XMS_ITS | Encounter Summary ---
Author Organization [facility] [place] [address] Care Team Providers Care Field Service Representative Name Role Phone Irma Sweeney Primary Care Provider +1- [phone] Encounter Details Date Type Department Care Team (Latest Contact Info) Description 08/13/2022 Travel Social History Tobacco Use Types Packs/Day [...] 3:15 PM EDT Office Visit Dermatology at [address] [place] [phone] Cornell Aldana MD [address] [address], [place] [address] documented as of this encounter Visit Diagnoses Not on filedocumented in this encounter Care Teams Field Service Representative Relationship Specialty Start Date End Date Irma Sweeney [address] [place] [address] PCP - General Family Medicine 08/04/20 documented as of this encounter
--- OUTSIDE RECORDS SUMMARY | 2024-06-29 15:27 | XMS_ITS | Encounter Summary ---
Author Organization [facility] [place] [address] Care Team Providers Care Social Services Analyst Name Role Phone Irma Sweeney Primary Care Provider +1- [phone] Reason for Visit * Reason Comments Annual Exam Encounter Details Date Type Department Care Team (Late st Contact Info) Description 08/04/2020 11:15 AM EST Office Visit Dermatology at [address] [phone] Cornell Aldana MD [address] [facility], [place] [address] History of basal cell carcinoma; Seborrheic dermatitis; Xerosis cutis Social History Tobacco Use Types Packs/Day Years Used Date Smoking Tobacco: Never Smokeless Tobacco: Never Sex and Gender Information Value Date Recorded Sex Assigned at Not on file Gender Identity Not on file Sexual Orientation Not on file documented as of this encounter Progress Notes * Cornell Aldana MD - 08/04/2020 11:15 AM EST Problem: 1. ??Skin lesions of concern, yearly skin checkup 2. ??History of extensive sun exposure 3. ??Previously followed by a space engineer in [place], now lives on [facility] 4. ??Seborrheic dermatitis of scalp well-controlled with head and shoulders shampoo 5. ??History of BCCA left anterior lateral base of neck in July 2016 6. History of BCCA right mid castañeda, central lower forehead July 2018 ?? Lisbeth follows up for her yearly skin checkup. She has been doing well, continuing to still fight her COPD. She is bothered very much by seborrheic keratoses on her back and cheeks but wonders about some rough areas on her face as well. She is also bothered by dry skin and wonders what she should beusing. She has been using a CeraVe pump lotion. Physical examination reveals a pleasant 75-year-old woman who has a pearly papule on the left church concerning for possible BCCA. It appears to be arising up and out of a seborrheic keratosis at that location. She has irritated skin tag on the right upper forehead at the hairline and a couple of irritated seborrheic keratosis on her right cheek. Fortunately otherwise careful examination of the head and the neck the chest to the back of the hands the arms of forearms thighs and the calves is benign. Her skin is diffusely xerotic and quite thin due to her requirement for oral prednisone. Assessment plan: Yearly skin checkup, history of nonmelanoma cutaneous malignancies 1. No evidence of recurrence at previously treated sites Rule out BCCA left church 1. After obtaining informed consent site was anesthetized and removed shave C&D x3 2. Wound ointment and bandage placed. After curettage site measured 7 mm in diameter. 3. Wound care instructions and supplies given 4. Return to clinic in a year for repeat check. We will notify patient of her biopsy results in 1 week. Xerosis cutis 1. Recommend CeraVe cream in the 1 pound jar. CC: Irma Sweeney documented in this encounter Plan of Treatment Upcoming Encounters Date Type Department Care Team (Late st Contact Info) Description 03/04/2025 3:15 PM EDT Office Visit Dermatology at [place] [address] [facility] [place] [address] Cornell Aldana MD [address] [facility] [place] [address] documented as of this encounter Visit Diagnoses Diagnosis History of basal cell carcinoma Personal history of other malignant neoplasm of skin Seborrheic dermatitis Seborrheic dermatitis, unspecified Xerosis cutis Other specified disease of sebaceous glands documented in this encounter Care Teams Social Services Analyst Relationship Specialty Start Date End Date Irma Sweeney [address] [place] [address] PCP - General Family Medicine 08/04/20 documented as of this encounter
--- OUTSIDE RECORDS SUMMARY | 2024-06-29 15:27 | XMS_ITS | Encounter Summary ---
Author Organization [facility] [place] [address] Care Team Providers Care Rat Breeder Name Role Phone Irma Sweeney Primary Care Provider +1- [phone] Encounter Details Date Type Department Care Team (Latest Contact Info) Description 08/13/2023 Travel Social History Tobacco Use Types Packs/Day [...] 3:15 PM EDT Office Visit Dermatology at [address] [place] [phone] Cornell Aldana MD [address] [facility] [address], [place] [address] documented as of this encounter Visit Diagnoses Not on filedocumented in this encounter Care Teams Rat Breeder Relationship Specialty Start Date End Date Irma Sweeney [address] [place], [place] [id number] PCP - General Family Medicine 08/04/20 documented as of this encounter
--- OUTSIDE RECORDS SUMMARY | 2024-06-29 15:27 | XMS_ITS | Encounter Summary ---
Author Organization [facility] [place] [address] Care Team Providers Care Mail Officer Name Role Phone Jude Nino Primary Care Provider [phone] Reason for Visit * Reason Comments Annual Exam * Consultation (Routine) - Specialty Diagnoses / Procedures Referred By Contheron t Referred To Contact Dermatology Diagnoses Skin Lesion on right castañeda Jude Nino PA [address] [place] [address] [facility] Dermatology [address] [place] [phone] Referral ID Status Reason Start Date Expiration Date V isits Requested Visits Authorized [id number] 02/12/2019 02/12/2020 6 6 Encounter Details Date Type Department Care Team (Late st Contact Info) Description 2019 10:30 AM EST Office Visit Dermatology at [address] [address] Cornell Aldana MD [address] [place] [address], [place] [address] History of basal cell carcinoma; Seborrheic dermatitis; Xerosis cutis Social History Tobacco Use Types Packs/Day Years Used Date Smoking Tobacco: Never Smokeless Tobacco: Never Sex and Gender Information Value Date Recorded Sex Assigned at Not on file Gender Identity Not on file Sexual Orientation Not on file documented as of this encounter Progress Notes * Cornell Aldana MD - 2019 10:30 AM EST Problem: 1. Skin lesions of concern, yearly skin checkup 2. History of extensive sun exposure 3. Previously followed by a auto damage trainee in [place], now lives on [facility] 4. Seborrheic dermatitis of scalp well-controlled with head and shoulders shampoo 5. 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 Is been doing well. Has not noted any lesions of concern.She continues to fight her COPD, and is bothered by seborrheic keratosis that are developing on number of places on the cheeks both medially and laterally Physical examination reveals a pleasant 74-year-old man who has excellent result and no evidence ofrecurrent BCCA at the 2 prior treatment sites from her last visit here. She has benign examination of the head and the neck the chest the back the hands the arms of forearms thighs and the calves. Assessment and plan: Yearly skin checkup, history of nonmelanoma cutaneous malignancies 1. Patient reassured about today's benign skin examination 2. Return to clinic will be in a year for repeat check, sooner for any lesions of concern 3. Continue sun avoidance precautions. CC: SUE Durand documented in this encounter Plan of Treatment Upcoming Encounters Date Type Department Care Team (Late st Contact Info) Description 03/04/2025 3:15 PM EDT Office Visit Dermatology at [place] [address] [place] [phone] Cornell Aldana MD 580 [facility], [place] [address] documented as of this encounter Visit Diagnoses Diagnosis History of basal cell carcinoma Personal history of other malignant neoplasm of skin Seborrheic dermatitis Seborrheic dermatitis, unspecified Xerosis cutis Other specified disease of sebaceous glands documented in this encounter Care Teams Mail Officer Relationship Specialty Start Date End Date Jude Nino PA [address] [place] [address] PCP - General General Internal Medicine 03/30/16 documented as of this encounter
--- OUTSIDE RECORDS SUMMARY | 2024-06-29 15:27 | XMS_ITS | Encounter Summary ---
Author Organization [facility] [place] [address] Care Team Providers Care Plans Examiner Name Role Phone Jude Nino Primary Care Provider [phone] Reason for Visit * Reason Comments Skin Check Follow-up Encounter Details Date Type Department Care Team (Late st Contact Info) Description 07/19/2017 10:15 AM EST Office Visit Dermatology at [address] [phone] Cornell Aldana MD 580 [facility] [place] [address] History of basal cell carcinoma; Seborrheic dermatitis; Xerosis cutis Social History Tobacco Use Types Packs/Day Years Used Date Smoking Tobacco: Never Smokeless Tobacco: Never Sex and Gender Information Value Date Recorded Sex Assigned at Not on file Gender Identity Not on file Sexual Orientation Not on file documented as of this encounter Progress Notes * Cornell Aldana MD - 07/19/2017 10:15 AM EST PROBLEMS: 1. Repeat yearly skin checkup. 2. History of extensive sun exposure. 3. Patient previously followed by a nutrition partner in [place]. Now lives on [facility]. 4. Seborrheic dermatitis of the scalp well controlled with Head and Shoulders shampoo. 5. History of BCCA left anterolateral base of neck 07/2016. Lisbeth follows up is now 71. She continues to fight her COPD. She has been otherwise doing well. She is enjoying residential on [facility] where they moved about three years ago after living in [place] for almost 40 years. The patient showers every other day to avoid excessive xerosis. She is using CeraVe cream as an emollient. She uses a mild soap. She likes the CeraVe cream. Physical examination reveals a pleasant 71-year-old woman who has a benign examination of the scalp with minimal to no seborrhea, no scaling. Benign examination of the face, the ears, the neck, the chest, the back. There is no evidence of any recurrent BCCA at the shave C and D site last year on the left anterolateral base of the neck. Examination of the hands, arms, forearms, thighs and the calves reveals just mild xerotic skin and a few seborrheic keratoses. Skin examination is benign. A/P: 1. Benign skin examination. a. The patient reassured about benign skin examination. b. No actinic keratoses seen today. 2. History of BCCA left anterolateral base of neck. a. No history of recurrence, patient reassured. 3. Seborrheic dermatitis of the scalp. a. Doing well. b. Continue Head and Shoulders, which is working well for the patient. She is no longer using T-Julio César. Return to clinic in one year. cc: Jude Nino PA-C documented in this encounter Plan of Treatment Upcoming Encounters Date Type Department Care Team (Late st Contact Info) Description 03/04/2025 3:15 PM EDT Office Visit Dermatology at [place] [address] [place] [address] Cornell Aldana MD 580 [facility], [place] [address] documented as of this encounter Visit Diagnoses Diagnosis History of basal cell carcinoma Personal history of other malignant neoplasm of skin Seborrheic dermatitis Seborrheic dermatitis, unspecified Xerosis cutis Other specified disease of sebaceous glands documented in this encounter Care Teams Plans Examiner Relationship Specialty Start Date End Date Jude Nino PA [address] [place] [address] PCP - General General Internal Medicine 03/30/16 documented as of this encounter
--- OUTSIDE RECORDS SUMMARY | 2024-06-29 15:27 | XMS_ITS | Encounter Summary ---
Author Organization [facility] [place] [address] Care Team Providers Care Watch And Clock Repairer Name Role Phone AshleyhilaryjulietaMartita Irma Primary Care Provider [phone] Reason for Visit * Reason Comments Follow-up Encounter Details Date Type Department Care Team (Late st Contact Info) Description 08/26/2023 2:15 PM EST Procedure visit Dermatology at [address] [place] [address] Cornell Aldana MD 580 [facility], [place] [address] History of basal cell carcinoma Social History [...] Progress Notes * Cornell Aldana MD - 08/26/2023 2:15 PM EST Clinical impression: BCCA right restorationist, shave biopsy-proven Site: Right restorationist Size: 2 cm Deep suture: 3-0 Vicryl Surface suture: 4-0 Ethilon Follow-up: In 1 week for suture removal and biopsy results Indications for surgery, possible adverse outcomes, and activity restrictions discussed. Informed verbal consent was obtained. Skin surface was prepared with 4% chlorhexidine and draped in the usual sterile manner. Local anesthesia with 1% lidocaine, 1 100,000 epinephrine 0.1 mEq Bicarbonate. Using a 15 blade, 3 mm Margins, an elliptical excision carried out around the lesion. Undermining performed peripherally. Hemostasis with electrodesiccation. Layered closure performed, specimen to pathology. Wound dressed,wound care reviewed. End length of suture line was 4.5 cm. Follow-up in 1 week for suture removal and biopsy results. cc: Serenity Sweeney DEEP SUBMERGENCE VEHICLE CREWMEMBER documented in this encounter Plan of Treatment Upcoming Encounters Date Type Department Care Team (Late st Contact Info) Description 03/04/2025 3:15 PM EDT Office Visit Dermatology at [place] [address] [place] [phone] Cornell Aldana MD 580 [facility], [place] [address] documented as of this encounter Visit Diagnoses Diagnosis History of basal cell carcinoma Personal history of other malignant neoplasm of skin documented in this encounter Care Teams Watch And Clock Repairer Relationship Specialty Start Date End Date Irma Sweeney [address] [place] [address] PCP - General Family Medicine 08/04/20 documented as of this encounter
--- OUTSIDE RECORDS SUMMARY | 2024-06-29 15:27 | XMS_ITS | Encounter Summary ---
Author Organization [facility] [place] [address] Care Team Providers Care Arts Manager Name Role Phone AshleyhilaryjulietaMartita Irma Primary Care Provider [phone]- [phone] Reason for Visit * Reason Comments Suture / Staple Removal Encounter Details Date Type Department Care Team (Late st Contact Info) Description 08/21/2022 4:30 PM EST Office Visit Dermatology at [address] [place] [phone] Cornell Aldana MD 580 [facility], [place] A DERMATOLOGY [place], [place] [phone] Visit for suture removal Social History Tobacco [...] Progress Notes * Cornell Aldana MD - 08/21/2022 4:30 PM EST Problem: Follow-up suture moved by results Lisbeth follows today with her Power. She had an uneventful postoperative course. The biopsy came back showing BCCA with margins clear. Physical examination reveals excellent healing the biopsy site but there is indeed a pattern of erythema and rectangular area of involvement and even erythema which centers itself over the incision line consistent with either tape irritation or possible irritation from the triple antibiotic bacitracin. It is not pruritic it is not dermatitic. Assessment plan: Status post excision BCCA margins clear 1. Patient congratulated on clear margins 2. May DC wound care instructions. DC ointment. DC Band-Aid 3. Discussed the option of hydrocortisone cream applications to area of erythema but patient would prefer just to wait for this to heal on its own which I agree is appropriate 4. Return to clinic in 1 year for her next skin checkup. cc: Irma Sweeney documented in this encounter Plan of Treatment Upcoming Encounters Date Type Department Care Team (Late st Contact Info) Description 03/04/2025 3:15 PM EDT Office Visit Dermatology at [place] [address] [place] [address] Cornell Aldana MD 580 [facility], [place] [address] documented as of this encounter Visit Diagnoses Diagnosis Visit for suture removal Encounter for removal of sutures documented in this encounter Care Teams Arts Manager Relationship Specialty Start Date End Date Irma Sweeney [address] [place] [address] PCP - General Family Medicine 08/04/20 documented as of this encounter
--- OUTSIDE RECORDS SUMMARY | 2024-06-29 15:27 | XMS_ITS | Encounter Summary ---
Author Organization [facility]ly [facility] [place] [address] Care Team Providers Care Internet E Commerce Specialist Name Role Phone TitusRasIrma Primary Care Provider [phone]- [phone] Encounter Details Date Type Department Care Team (Late Contact Info) Description 08/21/2022 Telephone Dermatology at [address] [address] Kyleigh Ho LPN Social History [...] Telephone Encounter - Kyleigh Ho LPN - 08/21/2022 2:28 PM EST 08/13/22 Excision right forehead Bx: BCCa Margins clear, no further treatment necessary Return to clinic 08/21/22 for suture removal then 08/13/23. Reviewed biopsy results and Dr. Celaya recommendations with patient. She voiced understanding. documented in this encounter Plan of Treatment Upcoming Encounters Date Type Department Care Team (Late Contact Info) Description 03/04/2025 3:15 PM EDT Office Visit Dermatology at [address] [address] Cornell Aldana MD [address] [facility] [address], [place] [address] documented as of this encounter Visit Diagnoses Not on filedocumented in this encounter Care Teams Internet E Commerce Specialist Relationship Specialty Start Date End Date Irma Sweeney [address] [place] [address] PCP - General Family Medicine 08/04/20 documented as of this encounter
--- OUTSIDE RECORDS SUMMARY | 2024-06-29 15:27 | XMS_ITS | Encounter Summary ---
Author Organization [facility] [place] [address] Care Team Providers Care Supervisor Stave Cutting Name Role Phone Jude Nino Primary Care Provider [phone] Reason for Visit * Reason Comments Annual Exam Encounter Details Date Type Department Care Team (Late st Contact Info) Description 07/22/2018 11:00 AM EST Office Visit Dermatology at [address] [address] Cornell Aldana MD [address] [facility] [place] [address] History of basal cell carcinoma; Seborrheic dermatitis; Xerosis cutis Social History Tobacco Use Types Packs/Day Years Used Date Smoking Tobacco: Never Smokeless Tobacco: Never Sex and Gender Information Value Date Recorded Sex Assigned at Not on file Gender Identity Not on file Sexual Orientation Not on file documented as of this encounter Progress Notes * Cornell Aldana MD - 07/22/2018 11:00 AM EST Problem: 1. Skin lesions of concern, yearly skin checkup 2. History of extensive sun exposure 3. Previously followed by a corporate director of pharmacy in [place], now lives on [facility] 4. Seborrheic dermatitis of scalp well-controlled with head and shoulders shampoo 5. 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 She has noted a new lesion on her forehead one right anterior castañeda. Also she has 3 milia on her face she would like to have removed. Physical examination reveals a pleasant 72-year-old woman who has continues to fight her COPD. She has a pearly papule concerning for BCC on the central lower forehead, site A, and crusting scabbing nonhealing lesion on the right mid castañeda of 1 years duration, site B. Otherwise examination of the head and the neck the chest the back of the hands arms forearms the thighs and calf is benign. Assessment plan: Rule out BCCA's central lower forehead site A and right mid castañeda of leg site B 1. After obtaining informed consent sites were anesthetized and shave C and D x2 performed after curettage site a measured 8 mm in diameter and site B measured 1.2 cm in diameter. 2. Wound care instruction supplies given 3. Return to clinic here in another year for repeat skin checkup Jacobo facial 1. Could schedule a 15-minute appointment for removal of these with anesthesia and 18-gauge needle extraction. CC: Jude ROGERS documented in this encounter Plan of Treatment Upcoming Encounters Date Type Department Care Team (Late st Contact Info) Description 03/04/2025 3:15 PM EDT Office Visit Dermatology at [address] [phone] Cornell Aldana MD [address] [facility], [place] [address] documented as of this encounter Visit Diagnoses Diagnosis History of basal cell carcinoma Personal history of other malignant neoplasm of skin Seborrheic dermatitis Seborrheic dermatitis, unspecified Xerosis cutis Other specified disease of sebaceous glands documented in this encounter Care Teams Supervisor Stave Cutting Relationship Specialty Start Date End Date Jude Nino PA [address] [place] [address] PCP - General General Internal Medicine 03/30/16 documented as of this encounter
--- OUTSIDE RECORDS SUMMARY | 2024-06-29 15:27 | XMS_ITS | Encounter Summary ---
Author Organization [facility] [place] [address] Care Team Providers Care Customs Director Name Role Phone Irma Sweeney Primary Care Provider [phone]- [phone] Encounter Details Date Type Department Care Team (Latest Contact Info) Description 08/09/2022 Travel Social History Tobacco Use Types Packs/Day [...] 3:15 PM EDT Office Visit Dermatology at [address] [place] [phone] Cornell Aldana MD [address] [facility] [address], [place] [address] documented as of this encounter Visit Diagnoses Not on filedocumented in this encounter Care Teams Customs Director Relationship Specialty Start Date End Date Irma Sweeney [address] [place] [address] PCP - General Family Medicine 08/04/20 documented as of this encounter
--- OUTSIDE RECORDS SUMMARY | 2024-06-29 15:27 | XMS_ITS | Encounter Summary ---
Author Organization [facility] [place] [address] Care Team Providers Care Fruit Grader Operator Name Role Phone Jude Nino Primary Care Provider [phone]- [phone] Encounter Details Date Type Department Care Team (Latest Contact Info) Description 07/22/2018 9:27 PM EST - 07/22/2018 11:59 PM EST Hospital [place] [phone] Discharge Disposition: Home Social History Tobacco Use Types Packs/Day Years Used Date Smoking Tobacco: Never Smokeless Tobacco: Never Sex and Gender Information Value Date Recorded Sex Assigned at Not on file Gender Identity Not on file Sexual Orientation Not on file documented as of this encounter Medications at Time of Discharge Medication Sig Dispensed Refills Start Date End Date traZODone (DESYREL) 50 mg Tablet 07/12/20 16 SPIRIVA RESPIMAT 2.5 mcg/actuation Mist 1 12/05/2020 levothyroxine (SYNTHROID) 75 mcg Tablet 1 08/10/2016 08/04/2020 PROAIR HFA 90 mcg/actuation HFA Aerosol Inhaler 06/04/2016 12/05/2020 SYMBICORT 160-4.5 mcg/actuation HFA Aerosol Inhaler 06/04/2016 12/05/2020 FLUZONE HIGH-DOSE 2015-17, PF, 180 mcg/0.5 mL Syringe 06/09/2016 COMBIVENT RESPIMAT 20-100 mcg/actuation Mist 06/04/2016 08/07/2021 polyethylene glycol (MIRALAX) 17 gram/dose Powder 06/18/2016 08/09/2022 documented as of this encounter Plan of Treatment Upcoming Encounters Date Type Department Care Team (Late st Contact Info) Description 03/04/2025 3:15 PM EDT Office Visit Dermatology at [place] [address] [facility] [address] [place] [address] Cornell Aldana MD [address], [place] [address] documented as of this encounter Procedures Procedure Name Priority Date/Time Associated Diagnosis Comments SURGICAL PATHOLOGY REPORT Routine 07/22/2018 12:00 PM EST documented in this encounter Results * Surgical Pathology Report (07/22/2018 12:00 PM EST) Final Diagnosis [id number] ? Location: [facility] The signing pathologist has (i) examined the relevant preparation(s) for the specimen(s) and (ii) rendered or confirmed the diagnosis(es). . ?Surgical Pathology DIAGNOSIS A - Skin, central lower forehead, ED&C: - Basal cell carcinoma, superficial and nodular types, present at the peripheral and deep specimen edges B - Skin, right mid castañeda of leg, shave ED&C: - ??Basal cell carcinoma, superficial, nodular and infiltrating types, ?present at the peripheral and deep specimen edges Electronically signed by: ??Salas WELLS, PhD, Tari Verified: ??07/25/2018 ?Dermatopatholo gist Performed at: ??-[facility] [facility] [place], [place], [place] CLINICAL INFORMATION Specimen Submitted: A - Skin, central lower forehead, ED & C (1) B - Skin, R mid castañeda of leg, shave ED & C (1) Clinical History and Diagnosis: Pearly papules, treated with shave C&D; BCCA/SCCA x2 Referring Identifier: ?(not provided) SPECIMEN PROCESSING A - Labeled/Fixative : A, formalin. Quantity/Size: ??Single, 0.8 x 0.6 x 0.1 cm. Tissue Description: Shave of armendariz-white to castrejon-white skin. Sections/Process ing: Inked, trisected and entirely submitted in 1 cassette labeled A1. B - Labeled/Fixative : B, formalin. Quantity/Size: ??Single, 1.3 x 0.9 x 0.1 cm. Tissue Description: Shave of armendariz-white skin with a eccentric, brown-red crust. Sections/Process ing: Inked, serially sectioned and entirely submitted in 2 cassettes as follows: ? B1: ??Tips. ? B2: ??Body. ??apb 07/25/2018 1:36 PM EST [facility] SPECIMEN FROM SKIN / Unknown 07/22/2018 12:00 PM EST 07/22/2018 12:00 PM EST SPECIMEN FROM SKIN / Unknown 07/22/2018 12:00 PM EST 07/22/2018 12:00 PM EST Cornell Aldana MD PATHOLOGY/CYTOLOGY O RDERABLES [facility] [place] [address] documented in this encounter Visit Diagnoses Not on filedocumented in this encounter Care Teams Fruit Grader Operator Relationship Specialty Start Date End Date Jude Nino PA [address] [place] [address] PCP - General General Internal Medicine 03/30/16 documented as of this encounter
--- OUTSIDE RECORDS SUMMARY | 2024-06-29 15:27 | XMS_ITS | Referral Summary ---
Author Organization [facility] Address [address] [place] [address] Care Team Providers Care Assembler Wire Mesh Gate Name Role Phone Unavailable Primary Care Provider [...] Orientation Not on file Plan of Treatment Not on file
--- OUTSIDE RECORDS SUMMARY | 2024-06-29 15:27 | XMS_ITS | Encounter Summary ---
Author Organization [facility] [place] [address] Care Team Providers Care Admissions Manager Rn Name Role Phone GualbertoMartitaIrma Primary Care Provider [phone]- [phone] Encounter Details Date Type Department Care Team (Late st Contact Info) Description 08/22/2023 Telephone Dermatology at [address] [address] Kyleigh Ho LPN Social History [...] Telephone Encounter - Kyleigh Ho LPN - 08/22/2023 3:20 PM EST 08/13/23 Right jainism, skin shave biopsy ED&C Bx: BCCa, Dr. Aldana recommends excision to completely remove it. Reviewed biopsy results and Dr. Celaya recommendations with patient and . Answered all questions. They both voiced understanding. Appointment scheduled for 08/26/23 at 2:15 documented in this encounter Plan of Treatment Upcoming Encounters Date Type Department Care Team (Late st Contact Info) Description 03/04/2025 3:15 PM EDT Office Visit Dermatology at [address] [address] Cornell Aldana MD [address], NICHOLAS A DERMATOLOGY [place], [place] [address] documented as of this encounter Visit Diagnoses Not on filedocumented in this encounter Care Teams Admissions Manager Rn Relationship Specialty Start Date End Date Irma Sweeney [address] [place] [address] PCP - General Family Medicine 08/04/20 documented as of this encounter
--- OUTSIDE RECORDS SUMMARY | 2024-06-29 15:27 | XMS_ITS | Encounter Summary ---
Author Organization [facility] [place] [address] Care Team Providers Care Paper Finisher Name Role Phone Irma Sweeney Primary Care Provider [phone]- [phone] Encounter Details Date Type Department Care Team (Latest Contact Info) Description 08/26/2023 9:47 PM EST - 08/26/2023 11:59 PM EST Hospital [place] [id number] Discharge Disposition: Home Social History Tobacco Use [...] as needed for Wheezing. Use with spacer [facility] 1 L by [facility].(Non-Drug; Combo Route) route Continuous (Device). Oxygen - [...] 3:15 PM EDT Office Visit Dermatology at [place] [address] [facility] [place] [address] Cornell Aldana MD [address], NICHOLAS [place] [address] documented as of this encounter Procedures Procedure Name Priority Date/Time Associated Diagnosis Comments SURGICAL PATHOLOGY REPORT Routine 08/26/2023 2:15 PM EST documented in this encounter Results * (ABNORMAL) Surgical Pathology Report (08/26/2023 2:15 PM EST) Final Diagnosis [id number] ? Location: OPW The signing pathologist has (i) examined the relevant preparation(s) for the specimen(s) and (ii) rendered or confirmed the diagnosis(es). . ?Surgical Pathology DIAGNOSIS Right hinduism, skin excision: - Residual basal cell carcinoma, peripheral margin positive for carcinoma - ??Seborrheic keratosis, inflamed - ??Actinic keratosis Electronically signed by: ?Radha WELLS, Jaswinder Murguia Verified: ??09/05/2023 12:02 ??Dermatopathol ogist Performed at: ??-[facility] [place], [place] [address] Soil Technologist: Alesia Coughlin MD, AP, ??CLIA Certificate: [id number] DISCUSSION THIS RESULT REQUIRES PHYSICIAN/A.P.P . FOLLOW UP ADDITIONAL STUDIES Multiple step-leveled sections are examined to evaluate the margin. SPECIMEN(S) SUBMITTED A - Right [place], Excision CLINICAL INFORMATION Excision of shave biopsy proven BCC ([id number]) ; scar SPECIMEN PROCESSING A - Labeled/Fixativ e: Patient demographics, formalin. Quantity/Size: ??Single, 3.3 x 1.6 x 0.5 cm. Tissue Description: Elliptical excision of white skin with a 1.3 x 1.0 cm ink shave biopsy site Sections/Proces sing: Inked and entirely submitted in 5 cassettes as follows: ?A1: ??tips ?A2-A5: ??body ??sns(A) 09/05/2023 12:02 PM EST [facility] SPECIMEN FROM SKIN / Unknown 08/26/2023 2:15 PM EST 08/26/2023 2:15 PM EST Cornell Aldana MD PATHOLOGY/CYTOLOGY [facility] [place] [address] [facility] [place] [address] documented in this encounter Visit Diagnoses Not on filedocumented in this encounter Care Teams Paper Finisher Relationship Specialty Start Date End Date Irma Sweeney [address] [place] [address] PCP - General Family Medicine 08/04/20 documented as of this encounter
--- OUTSIDE RECORDS SUMMARY | 2024-06-29 15:27 | XMS_ITS | Encounter Summary ---
Author Organization [facility] Address [facility] [place] [address] Care Team Providers Care Director Ship Name Role Phone Irma Sweeney Primary Care Provider [phone]- [phone] Encounter Details Date Type Department Care Team (Late st Contact Info) Description 08/14/2021 Telephone Dermatology at [address] [address] Ally Bearden RN Social History Tobacco Use Types Packs/Day Years [...] encounter Miscellaneous Notes * Telephone Encounter - Ally Bearden RN - 08/14/2021 12:07 PM EST Pt had a shave biopsy performed on 08/07/2021. Pt called today and was given the results. Left medial canthus was seborrheic keratosis/benign mole. Per Dr. Aldana no further treatment is needed. Pt stated that she understood. Pt has been recommended to return to the clinic in 1 year. Pt is scheduled a follow up appointment 08/09/2022. Pt was reminded of her follow up appointment. Pt informed if shefeels she needs to be seen sooner to contact the clinic. Pt stated no questions or concerns at thistime. documented in this encounter Plan of Treatment Upcoming Encounters Date Type Department Care Team (Late st Contact Info) Description 03/04/2025 3:15 PM EDT Office Visit Dermatology at [place] [address] [facility] [place] [id number] Cornell Aldana MD [address], SEL[place] [address] documented as of this encounter Visit Diagnoses Not on filedocumented in this encounter Care Teams Director Ship Relationship Specialty Start Date End Date Irma Sweeney [address] [place] [address] PCP - General Family Medicine 08/04/20 documented as of this encounter
--- OUTSIDE RECORDS SUMMARY | 2024-06-29 15:27 | XMS_ITS | Encounter Summary ---
Author Organization [facility] [place] [address] Care Team Providers Care Paraprofessional Aide Teacher Name Role Phone Irma Sweeney Primary Care Provider +1- [phone] Reason for Visit * Reason Comments Follow-up Encounter Details Date Type Department Care Team (Late st Contact Info) Description 02/28/2024 2:15 PM EDT Office Visit Dermatology at [address] [place] [phone] Cornell Aldana MD [address] [facility], [place] [address] History of basal cell carcinoma; Xerosis cutis; [...] Progress Notes * Cornell Aldana MD - 02/28/2024 2:15 PM EDT Problem: 1. History of extensive sun exposure, annual skin checkup 2. 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 Previously followed by a sous chef in [place], now lives on [facility] 4. Seborrheic dermatitis of scalp well-controlled with head and shoulders shampoo 5. History of BCCA left anterior lateral base of neck in July no new lesions of concern seen. History of BCCA right mid castañeda, central lower forehead July 2018 7. History of BCCA right forehead August 2022 8. Patient with significant COPD on nasal cannula O2 9. History of BCCA, right sabianism, in August 2023 Lisbeth follows up for repeat skin checkup. Physical examination reveals a pleasant 78-year-old woman today has a benign examination of the of the head and the neck the chest and back the hands arms forearms thighs and calves. The right templeBCC excision site is healed beautifully and there is no evidence of recurrence. She has a single seborrheic keratosis is somewhat irritated on the left lateral base of her neck. Assessment plan: History of non melanoma cutaneous malignancies 1. No evidence of recurrence 2. No new lesions of concern seen Seborrheic keratosis left lateral base of neck 1. Could consider LN2 treatment to the site. CC: Irma Sweeney documented in this encounter Plan of Treatment Upcoming Encounters Date Type Department Care Team (Late st Contact Info) Description 03/04/2025 3:15 PM EDT Office Visit Dermatology at [place] [address] [place] [address] Cornell Aldana MD [address] [facility], [place] [address] documented as of this encounter Visit Diagnoses Diagnosis History of basal cell carcinoma Personal history of other malignant neoplasm of skin Xerosis cutis Other specified disease of sebaceous glands AK (actinic keratosis) Actinic keratosis documented in this encounter Care Teams Paraprofessional Aide Teacher Relationship Specialty Start Date End Date Irma Sweeney [address] [place] [address] PCP - General Family Medicine 08/04/20 documented as of this encounter
--- OUTSIDE RECORDS SUMMARY | 2024-06-29 15:27 | XMS_ITS | Encounter Summary ---
Author Organization [facility] [place] [address] Care Team Providers Care Jail Keeper Name Role Phone Jude Nino Primary Care Provider [phone]- [phone] Encounter Details Date Type Department Care Team (Late st Contact Info) Description 07/31/2018 Telephone Dermatology at [address] [address] Kyleigh Ho LPN Social History Tobacco Use Types Packs/Day Years Used Date Smoking Tobacco: Never Smokeless Tobacco: Never Sex and Gender Information Value Date Recorded Sex Assigned at Not on file Gender Identity Not on file Sexual Orientation Not on file documented as of this encounter Miscellaneous Notes * Telephone Encounter - Kyleigh Ho LPN - 07/31/2018 10:49 AM EST 07/22/18 biopsies: A) skin central lower forehead, ED & C - BCCA B) skin right mid castañeda of leg, shave ED & C Reviewed above information with . Will discuss with Lisbeth, any questions she will call. He voiced understanding. documented in this encounter Plan of Treatment Upcoming Encounters Date Type Department Care Team (Late st Contact Info) Description 03/04/2025 3:15 PM EDT Office Visit Dermatology at [address] [address] Cornell Aldana MD [address] [place] [address], [place] [address] documented as of this encounter Visit Diagnoses Not on filedocumented in this encounter Care Teams Jail Keeper Relationship Specialty Start Date End Date Jude Nino PA [address] [place] [address] PCP - General General Internal Medicine 03/30/16 documented as of this encounter
[2024-06-29 15:41] LABS: Abs Immature Grans 0.03 10^3/uL (0.0-0.06); Absolute Basophil Count 0.06 10^3/uL (0.0-0.2); Absolute Eosinophil Count 0.71 10^3/uL (0.0-0.7); Basophils % 0.5 %; Eosinophils % 6.2 %; HCT 42.8 % (36.0-46.0); HGB 13.9 g/dL (11.2-15.7); Immature Grans % 0.3 %; Lymphocytes % 20.9 %; MCH 31.2 pg (27.0-33.0); MCHC 32.5 % (32.0-36.0); MCV 96 fL (80-95); MPV 11.4 fL (8.0-11.0); Monocytes % 7.7 %; Neutrophils % 64.4 %; Platelet Count 361 10^3/uL (130-400); RBC 4.45 10^6/uL (3.93-5.22); RDW 13.3 % (11.7-14.6); RDW-SD 47.2 fL; WBC 11.49 10^3/uL (4.4-10.8)
[2024-06-29 15:45] LABS: Absolute Monocyte Count 0.88 10^3/uL (0.1-0.8)
[2024-06-29 22:02] LABS: IgE 887 IU/mL (<158)
== END 2024-06-29 15:26 | disposition home or self-care (01) ==
LOC: LBN 15:25
PROVIDERS: PCP Nurse Practitioner Family; Visit Provider Physician Assistant Surgical
DX: J44.9 Chronic obstructive pulmonary disease, unspecified (principal)
CPT/HCPCS: 82785; 85025

== ENCOUNTER 2024-10-12 12:57 | Outpatient (REF) | payer BC, SELFPAY ==
[2024-10-12 16:52] LABS: Anion Gap 9.9 mmol/L (3-11); BUN 20 mg/dL (7-18); CO2 27.1 mmol/L (21.0-32.0); CREATININE 1.1 mg/dL (0.55-1.02); Calcium 10.4 mg/dL (8.5-10.1); Chloride 109 mmol/L (98-107); Estimated GFR 51.75 (mL/min/1.73m2); Glucose 114 mg/dL (74-106); Potassium 4.2 mmol/L (3.5-5.1); Sodium 146 mmol/L (136-145); TSH 0.27 uIU/mL (0.36-3.74)
== END 2024-10-12 12:58 | disposition home or self-care (01) ==
LOC: NCHCN 12:57
PROVIDERS: PCP Nurse Practitioner Family; Visit Provider Nurse Practitioner Family
DX: N18.9 Chronic kidney disease, unspecified (principal); E03.9 Hypothyroidism, unspecified
CPT/HCPCS: 80048; 84443

== ENCOUNTER 2024-11-05 00:48 | Outpatient (CLI) | payer MEDICARE, SELFPAY ==
--- NOTE | 2024-11-05 09:15 | DI.CTLCSR_ITS ---
Exam(s) CT CHEST LUNG CANCER SCREEN EXAM: CT CHEST LUNG CANCER SCREEN CLINICAL HISTORY: Screening for lung cancer, former smoker, Z87.891 TECHNIQUE: Imaging Protocol: Axial computed tomography images with coronal and sagittal reformatted images were created and reviewed. Lung Computer Aided Detection (CAD) was utilized. COMPARISON: CT CT CHEST WO from 11/25/2023 FINDINGS: Tracheobronchial tree: Patent where visualized. No bronchiectasis. Pulmonary parenchyma: Emphysematous changes are present in the lungs. There is a stable area of scar ring or atelectasis in the left lingula. No new focal consolidating infiltrates are seen. Lung Nodules: No suspicious pulmonary nodules are present. Mediastinum and Tati: No dominant adenopathy or fluid collection. The esophagus is unremarkable. Lymph nodes: Unremarkable. Pleura: No effusion or pneumothorax. Heart: The heart is not dilated. Two vessel coronary artery calcification is present. No pericardial effusion. Aorta: Thoracic aorta non-dilated.Atherosclerotic calcification is present. Upper abdomen: Unremarkable. Soft Tissues: Unremarkable. Bones: Within normal limits. IMPRESSION: No suspicious pulmonary nodules. Lung RADS Cat 1 - Negative: No nodules and definitely benign nodules Lung-RADS 1.0 CATEGORIES: Category 0 - Prior chest CT exam(s) being located for comparison. Category 1 - Annual screening in 12 months. No nodules or definitely benign nodules. Category 2 - Annual screening in 12 months. Benign appearance. Nodules with low likelihood of becomin g active cancer. Category 3 - 6-month follow-up. Probably benign. Short-term follow-up suggested. Nodules with low lik elihood of becoming active cancer. Category 4A - 3-month follow-up and CT/PET if >8 mm in size. Suspicious finding. Findings which requi re additional testing. Category 4B - Findings which require additional testing and tissue sampling. Suspicious finding. Category 4X - Category 3 or 4 nodules with additional features or imaging findings that increases the suspicion of malignancy. Modifier S- Potentially clinically significant finding. (Non lung cancer) RADIATION DOSE DELIVERED: 20.09mGy.cm Total DLP 20.09mGy.cmTotal DLP DATA REPOSITORY: All CT scans at this facility are submitted to the National Radiology Data Registry (NRDR) Dose Index Registry (DIR) with the [employer] (ACR). RADIATION OPTIMIZATION: All CT scans at this facility use at least one of these dose optimization te chniques: automated exposure control; mA and/or kV adjustment per patient size (includes targeted exa ms where dose is matched to clinical indication); or iterative reconstruction.
== END 2024-11-05 01:08 ==
LOC: DI 00:49
PROVIDERS: PCP Nurse Practitioner Family; Visit Provider Physician Assistant Surgical
DX: Z87.891 Personal history of nicotine dependence (principal); Z12.2 Encounter for screening for malignant neoplasm of respiratory organs
CPT/HCPCS: 71271

== ENCOUNTER 2024-12-16 10:29 | Outpatient (REF) | payer MEDICARE, SELFPAY ==
[2024-12-16 20:08] LABS: TSH 1.13 uIU/mL (0.36-3.74)
== END 2024-12-16 10:30 | disposition home or self-care (01) ==
LOC: NCHCN 10:29
PROVIDERS: PCP Nurse Practitioner Family; Visit Provider Nurse Practitioner Family
DX: E03.9 Hypothyroidism, unspecified (principal)
CPT/HCPCS: 84443

== ENCOUNTER → 2024-12-30 12:40 | Outpatient (BNVA) | payer MEDICARE, SELFPAY | PROVIDERS: PCP Nurse Practitioner Family; Referring Provider Nurse Practitioner Family; Visit Provider Physician Assistant Surgical | DX: J44.9 Chronic obstructive pulmonary disease, unspecified (principal); J96.91 Respiratory failure, unspecified with hypoxia; R91.8 Other nonspecific abnormal finding of lung field; Z91.09 Other allergy status, other than to drugs and biological substances; R76.8 Other specified abnormal immunological findings in serum | CPT/HCPCS: 99214; 36415 ==

== ENCOUNTER 2024-12-30 14:48 | Outpatient (REF) | payer MEDICARE, SELFPAY ==
[2025-01-01 16:10] LABS: Aspergillus Fumigatus IgE 17.5 kU/L (<0.70); Baker's Yeast, IgE 2.37 kU/L (<0.70); Bermuda Grass IgE 1.05 kU/L (<0.70); Candida Albicans (Monilia),IgE 0.63 kU/L (<0.70); Cat Epithelium IgE <0.10 kU/L (<0.70); Cockroach IgE 0.31 kU/L (<0.70); D Farinae IgE 0.29 kU/L (<0.70); D Pteronyssinus IgE 0.22 kU/L (<0.70); Dog Dander IgE 0.13 kU/L (<0.70); Eastern Sycamore IgE 1.28 kU/L (<0.70); Giant Ragweed IgE 1.28 kU/L (<0.70); June Grass IgE 1.05 kU/L (<0.70); Lobster IgE <0.10 kU/L (<0.70); Mouse Serum Protein IgE <0.10 kU/L (<0.70); Oak IgE 0.97 kU/L (<0.70); Penicillin G IgE <0.10 kU/L (<0.70); Penicillin V IgE <0.10 kU/L (<0.70); Penicillium chrysogenum IgE 0.87 kU/L (<0.70); Short Ragweed IgE 0.86 kU/L (<0.70); Silver Birch IgE 0.52 kU/L (<0.70); Spruce, IgE 0.33 kU/L (<0.70); White Pine, IgE 0.49 kU/L (<0.70)
[2025-01-04 11:58] LABS: Aspergillus Niger, IgE 1.23 kU/L (<0.70)
[2025-01-04 12:23] LABS: False Ragweed, IgE 0.35 kU/L (<0.70)
[2025-01-05 12:01] LABS: CLASS 1; Cedar Red IgE 0.68 kU/L (<0.35)
== END 2024-12-30 14:49 | disposition home or self-care (01) ==
LOC: LBN 14:48
PROVIDERS: PCP Nurse Practitioner Family; Visit Provider Physician Assistant Surgical
DX: Z91.09 Other allergy status, other than to drugs and biological substances (principal); R76.8 Other specified abnormal immunological findings in serum
CPT/HCPCS: 86003; 84307

== ENCOUNTER 2025-01-06 13:32 | Emergency (ER) | payer MEDICARE, SELFPAY ==
[2025-01-06 13:35] VITALS: BP 128/75; PULSE 102; RESP 18; TEMP 36.4; O2SAT 98
--- NOTE | 2025-01-06 13:45 | DI.RAD_ITS ---
Exam(s) XR WRIST RT COMPLETE EXAM: XR WRIST RT COMPLETE CLINICAL HISTORY: right wrist. TECHNIQUE: 2D digital imaging was performed of the right wrist. Three views were obtained. PA, lat eral and oblique views were obtained. COMPARISON: No exams were available for comparison FINDINGS: BONES: There is an impacted fracture involving the distal metaphysis of the right radius. No bony de structive lesion is seen. JOINTS: The carpal bones are normally aligned. SOFT TISSUE: Normal. IMPRESSION: There is impacted fracture involving the distal metaphysis of the right radius. DATA REPOSITORY: RADIATION DOSE DELIVERED:
--- NOTE | 2025-01-06 15:01 | ED.GENADUL_ITS ---
Discharge Plan Disposition Patient Disposition: Home Condition: Stable Discharge Details Clinical Impression: Fracture of wrist Primary Care Provider: Irma Sweeney ED Provider: Cristal Barraza Home Meds and New Rx's Prescriptions: Continued levothyroxine 75 mcg capsule 50 mcg PO DAILY gabapentin 100 mg capsule 200 mg PO QHS Qty: 30 3RF (DME) Oxygen Tank See Rx Instructions .ROUTE .MEDSUPPLY Qty: 1 Rx Instructions: portable concentrator setting #3 albuterol sulfate [ProAir HFA] 90 mcg/actuation HFA aerosol inhaler 2 inh Inhalation Q4H PRN PRN (Reason: shortness of breath or wheezing) Qty: 8.5 12RF morphine concentrate 100 mg/5 mL (20 mg/mL) solution 5 - 10 mg PO Q4H MDD 3 mL Qty: 30 0RF Rx Instructions: for SOB, palliative care patient. Lactobacillus acidophilus 10 billion cell capsule 10,000 mmu cells PO DAILY mirtazapine 7.5 mg tablet 15 mg PO QHS potassium chloride 10 mEq tablet,ER particles/crystals 10 meq PO DAILY cetirizine [Zyrtec] 10 mg tablet 10 mg PO DAILY Qty: 90 4RF azithromycin 250 mg tablet 250 mg PO DAILY Qty: 90 4RF Trelegy Ellipta 100-62.5-25 mcg blister with device 1 inh IH DAILY Qty: 3 0RF Rx Instructions: Provide 3 month supply please multivitamin [Daily Multiple] 1 EACH tablet 1 ea PO DAILY guaifenesin [Mucinex] 600 mg Tablet Extended Release 12hr 600 mg PO BID PRN PRN (Reason: cough) Qty: 30 0RF Discharge Instructions Instructions: Wrist Fracture (DC), Common Wrist Injuries ED Additional Instructions: take tylenol as needed for pain Keep your splint in place Follow-up with Dr. Nguyen, orthopedics to schedule an appointment You may adjust your splint as needed Please return with worsening pain or should any new concerns arise Referrals: Hossein Nguyen MD [ [facility] STAFF PHYSICIAN] - 1 week HPI General Date/Time Provider Initiated Documentation: 01/06/25 13:40 . HPI Narrative: 79-year-old female presents with right wrist pain after a fall from a chair. Persistent pain and mild swelling noted. No additional injuries or elbow pain. Related Data Home Medications ?Medication ?Instructions ?Recorded ?Confirmed multivitamin (Daily Multiple 1 ea PO DAILY 10/15/17 01/06/25 tablet) guaifenesin 600 mg tablet, 600 mg PO BID PRN PRN cough #30 11/27/18 01/06/25 extended release 12 hr (Mucinex) tabs Oxygen #1 ea 01/25/22 01/06/25 gabapentin 100 mg capsule 200 mg (2 x 100 mg) PO QHS #30 caps 01/25/22 01/06/25 Lactobacillus acidophilus 10 10,000 mmu cells PO DAILY 03/07/23 01/06/25 billion cell capsule mirtazapine 7.5 mg tablet 15 mg PO QHS 03/07/23 01/06/25 potassium chloride 10 mEq 10 meq PO DAILY 05/02/23 01/06/25 tablet,extended release(part/cryst) albuterol sulfate 90 mcg/actuation 2 inh inhalation Q4H PRN PRN 12/31/23 01/06/25 aerosol inhaler (ProAir HFA) shortness of breath or wheezing #8.5 grams levothyroxine 75 mcg capsule 50 mcg PO DAILY 04/07/24 01/06/25 morphine concentrate 100 mg/5 mL 5 - 10 mg (0.25 - 0.5 mL) PO Q4H 04/24/24 01/06/25 (20 mg/mL) oral solution #30 mL azithromycin 250 mg tablet 250 mg PO DAILY COPD #90 tabs 08/24/24 01/06/25 cetirizine 10 mg tablet (Zyrtec) 10 mg PO DAILY #90 tabs 10/16/24 01/06/25 fluticasone fur. 100 mcg-umeclid 1 inh inhalation DAILY #3 ea 11/09/24 01/06/25 62.5 mcg-vilant 25 mcg inhalat.powder (Trelegy Ellipta) Previous Rx's ?Medication ?Instructions ?Recorded guaifenesin 600 mg tablet, 600 mg PO BID PRN PRN cough #30 11/27/18 extended release 12 hr (Mucinex) tabs gabapentin 100 mg capsule 200 mg (2 x 100 mg) PO QHS #30 caps 01/25/22 albuterol sulfate 90 mcg/actuation 2 inh inhalation Q4H PRN PRN 12/31/23 aerosol inhaler (ProAir HFA) shortness of breath or wheezing #8.5 grams morphine concentrate 100 mg/5 mL 5 - 10 mg (0.25 - 0.5 mL) PO Q4H 04/24/24 (20 mg/mL) oral solution #30 mL azithromycin 250 mg tablet 250 mg PO DAILY COPD #90 tabs 08/24/24 cetirizine 10 mg tablet (Zyrtec) 10 mg PO DAILY #90 tabs 10/16/24 fluticasone fur. 100 mcg-umeclid 1 inh inhalation DAILY #3 ea 11/09/24 62.5 mcg-vilant 25 mcg inhalat.powder (Trelegy Ellipta) Allergies Allergy/AdvReac Type Severity Reaction Status Date / Time No Known Allergies Allergy Verified 01/06/25 13:37 General Stated Complaint: Orthopedic OLIVIER: 4 Exam Narrative Exam Narrative: General Appearance: Alert and oriented x4, no acute distress. Vital signs: Within normal limits. HEENT: Within normal limits. Respiratory: Within normal limits. Skin: Warm and dry, no rash. Neurological: No acute distress. Back, Musculoskeletal: No open fracture, neurovascularly intact, no other signs of trauma. Course Vital Signs Vital signs: Vital Signs Temperature 36.4 C L 01/06/25 13:35 Pulse 102 H 01/06/25 13:35 Respiratory Rate 18 01/06/25 13:35 Blood Pressure 128/75 01/06/25 13:35 Pulse Oximetry 98 01/06/25 13:35 Temperature 36.4 C L 01/06/25 13:35 Pulse 102 H 01/06/25 13:35 Respiratory Rate 18 01/06/25 13:35 Blood Pressure 128/75 01/06/25 13:35 Pulse Oximetry 98 01/06/25 13:35 Oxygen Delivery Method Nasal Cannula 01/06/25 13:35 Oxygen Flow Rate 4 01/06/25 13:35 Pain Level 7 01/06/25 13:44 Medical Decision Making X-ray shows impacted distal radius fracture. Initial Assessment: 79-year-old female with fall landing on right wrist, persistent pain, mild swelling, no elbow pain, alert and oriented, no acute dis tress, no open fracture. ED Course: - X-ray shows impacted radius fracture distally, read by radiology and reviewed by me. - Patient remains neurovascularly intact. - Apply Velcro wrist splint. - Refer to orthopedics. Final Assessment: Patient with impacted distal radius fracture from fall, persistent pain, mild swelling, neurovascularly intact, no other trauma. Velcro wrist splint applied and referred to orthopedics for further management. Clinical Impression: - Impacted distal radius fracture. Disposition: - Discharge. - Follow-Up: Orthopedics referral for further management. Quality:SDOH Health Related Social Needs: No Data to Display PFSH All Active Problems (Updated 01/06/25 @ 14:19 by SUE Dangelo) Fracture of wrist (Acute) Elevated IgE level (Acute) Environmental allergies (Acute) Apathy (Chronic) hard to motivate; does get herself together to get out when necessary Depression (Chronic) GONZALES (dyspnea on exertion) (Acute) Physical deconditioning (Acute) Impairment of speech discrimination (Acute) Excessive sleepiness (Acute) Oxygen dependent (Chronic) with activity Memory deficit (Acute) Goals of care, counseling/discussion (Acute) Impacted cerumen, left ear (Acute) Respiratory failure with hypoxia (Acute) Insomnia (Acute) Elevated C-reactive protein (CRP) (Acute) Anemia (Chronic) Polyarthralgia (Acute) Constipation (Acute) Sleep disturbance (Acute) Basal cell carcinoma (Acute) 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) Fatigue (Acute) Chronic kidney disease (Chronic) Sensorineural hearing loss, bilateral (Acute) Conductive hearing loss, external ear (Acute) Impacted cerumen, bilateral (Acute) COPD (chronic obstructive pulmonary disease) (Chronic) Hx of tonsillectomy (Chronic) Diverticulosis (Acute) Psoriasis (Chronic) Pulmonary nodules (Acute) Macrocytic anemia (Acute) DVT prophylaxis (Acute) Adrenal insufficiency (Acute) HCAP (healthcare-associated pneumonia) (Acute) COPD exacerbation (Acute) Pneumonia (Acute) Colon cancer screening (Acute) Medical History Discharge planning issues COPD (chronic obstructive pulmonary disease) Osteopenia Hypothyroid Diverticulosis History of tobacco abuse Surgical History Colonoscopy - MAC (06/22/16) Family History Father , age 81 End stage COPD Mother , age 70 Breast cancer Cancer cervical Stroke Brother , age 55 End stage COPD Alcohol use disorder Social History Smoking/Tobacco Use Status: Former Tobacco Use Quit Date: 06/05/15 Pack-years: 67 Tobacco: How many years used: 45 Second Hand Exposure: Yes Smoking risk assessment performed?: Yes Alcohol Intake: current Alcohol Intake frequency: 0-2 drinks per day Drug use: Never Substance use type: does not use Caregiver/Support person: Yes () Household members: spouse Housing: house Number of Children: 0 Communication Needs: Hard of Hearing and Corrective Lenses Education Level: high school Do you need help understanding health information?: Always 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 Close to his 2 daughters, though she had no kids of her own. She never wants to be in a SNF. Would rather than that. Not afraid of dying. Likes her privacy. PAWSS Have you Been Recently Intoxicated or Drunk Within the Last 30 days?: No Have you Ever Experienced Previous Episodes of Alcohol Withdrawal?: No Have you ever Experienced Withdrawal Seizures?: No Have you ever Experienced Delirium Tremens(DT)s?: No Have you ever undergone Alcohol Rehabilitation Treatment (i.e, inpt ot outpatient treatment programs)?: No Have you ever Experienced Blackouts?: No Have you ever Combined Alcohol with other Downers within the last 90 days?: No Have you ever Combined Alcohol with any other Substance of Abuse during the last 90 days?: No Positive Blood Alcohol level on Presentation? [PCS.BAL]: No Evidence of Increased Autonomic Activity (i.e. HR>120, tremor, sweating, agitation, nausea)?: No Result: 0
[2025-01-06 15:10] VITALS: BP 118/39; PULSE 98; RESP 16; O2SAT 94
== END 2025-01-06 15:27 | disposition home or self-care (01) ==
PROVIDERS: Emergency Provider Physician Assistant; PCP Nurse Practitioner Family
DX: S52.501A Unspecified fracture of the lower end of right radius, initial encounter for closed fracture (principal); W19.XXXA Unspecified fall, initial encounter
CPT/HCPCS: 99283 ×2; 73110

== ENCOUNTER → 2025-01-26 12:26 | Outpatient (BNVA) | payer MEDICARE, SELFPAY | PROVIDERS: PCP Nurse Practitioner Family; Referring Provider Nurse Practitioner Family; Visit Provider Physician Assistant Surgical | DX: J44.9 Chronic obstructive pulmonary disease, unspecified (principal) | CPT/HCPCS: 99211 ==

== ENCOUNTER 2025-01-27 09:20 | Outpatient (CLI) | payer MEDICARE, SELFPAY ==
--- NOTE | 2025-01-27 09:00 | DI.RAD_ITS ---
Exam(s) XR WRIST RT LIMITED EXAM: XR WRIST RT LIMITED INDICATION: F/U FRACTURE. COMPARISON: CR XR WRIST RT COMPLETE from 01/06/2025 TECHNIQUE: 2D digital imaging was performed. Two views. FINDINGS: Stable alignment distal radial fracture. No new abnormalities. Degenerative changes again noted at the 1st carpal metacarpal joint. DATA REPOSITORY: RADIATION DOSE DELIVERED:
== END 2025-01-27 09:21 | disposition home or self-care (01) ==
LOC: DIORS 09:20
PROVIDERS: PCP Nurse Practitioner Family; Referring Provider Nurse Practitioner Family; Visit Provider Student in an Organized Health Care Education/Training Program
DX: S52.501A Unspecified fracture of the lower end of right radius, initial encounter for closed fracture (principal); J44.9 Chronic obstructive pulmonary disease, unspecified; Z99.81 Dependence on supplemental oxygen; N18.9 Chronic kidney disease, unspecified; Z87.891 Personal history of nicotine dependence
CPT/HCPCS: 99213; 73100

== ENCOUNTER 2025-02-24 14:26 | Outpatient (CLI) | payer MEDICARE, SELFPAY ==
--- NOTE | 2025-02-24 14:15 | DI.RAD_ITS ---
Exam(s) XR WRIST RT LIMITED EXAM: XR WRIST RT LIMITED INDICATION: F/U R DISTAL RAD FX. COMPARISON: CR XR WRIST RT LIMITED from 01/27/2025 TECHNIQUE: 2D digital imaging was performed. Two views. FINDINGS: Stable alignment of the distal right fracture. No new abnormalities. DATA REPOSITORY: RADIATION DOSE DELIVERED:
== END 2025-02-24 14:27 | disposition home or self-care (01) ==
LOC: DIORS 14:26
PROVIDERS: PCP Nurse Practitioner Family; Referring Provider Nurse Practitioner Family; Visit Provider Student in an Organized Health Care Education/Training Program
DX: S52.501A Unspecified fracture of the lower end of right radius, initial encounter for closed fracture (principal); X58.XXXA Exposure to other specified factors, initial encounter
CPT/HCPCS: 99213; 73100

== ENCOUNTER 2025-07-08 02:00 | Outpatient (CLI) | payer MEDICARE, SELFPAY | END 2025-07-08 02:01 | disposition home or self-care (01) | LOC: RT 02:00 | PROVIDERS: PCP Nurse Practitioner Family; Visit Provider Physician Assistant Surgical | DX: J96.91 Respiratory failure, unspecified with hypoxia (principal); J44.9 Chronic obstructive pulmonary disease, unspecified | CPT/HCPCS: 94762 ==